=== PATIENT | male | born 1970 | race Two or more races ===

== ENCOUNTER 2025-09-17 09:10 | Inpatient (IN) | payer MEDICAID, SELFPAY ==
[2025-09-17] VITALS (16 sets, daily range): BP systolic 100–138; BP diastolic 62–81; PULSE 82–120; RESP 13–97; TEMP 36.4–36.8; O2SAT 93–97; BMI 26.6; BMI 25.4; BMI 25.8
--- NOTE | 2025-09-17 09:41 | PD.EDEXREM ---
ED Extremity Problem RME/HPI General Chief complaint: General Adult/Misc Complain Stated complaint: R FOOT INFECTION Time Seen by Provider: 09/17/25 09:20 Arrival date/time: 09/17/25 09:10 RME / HPI RME / HPI Narrative: See MDM for Dr. Gonzalez's HPI documentation. Related Data Previous Rx's ?Medication ?Instructions ?Recorded cefpodoxime 200 mg tablet 200 mg PO BID #10 tabs 11/07/20 Allergies Allergy/AdvReac Type Severity Reaction Status Date / Time No Known Allergies Allergy Verified 11/06/20 09:13 Review of Systems Review of Systems Systems Reviewed: All systems reviewed, normal except as documented Past Medical History Past Medical History GASTROINTESTINAL: Positive Gall Bladder Disease and Gastroesophageal Reflux Disease Social History SMOKING STATUS: Never smoker SECOND HAND EXPOSURE: No SUBSTANCE USE: does not use ED Exam Narrative Physical exam: See MDM for Dr. Gonzalez's physical exam documentation. Course Quality Measures none Orders Category Date Time Status Admit to Inpatient Status Routine Admission 09/17/25 15:09 Active Patient Condition Routine Admission 09/17/25 15:09 Ordered COVID-19 Screening Questionnaire NOW Care 09/17/25 13:[address] Screening NOW Care 09/17/25 09:43 Active Decision to Admit X1 Care 09/17/25 13:05 Completed NPO NOW Care 09/17/25 15:11 Active Notify provider NEEDED Care 09/17/25 15:09 Active Obtain weight NOW Care 09/17/25 15:09 Active Saline [Insert IV] NOW Care 09/17/25 09:42 Active Consult to General Surgery Stat Cons 09/17/25 13:00 Ordered Diet NPO (NOW) Diet 09/17/25 15:[address] foot RT w con Stat Exams 09/17/25 09:43 Completed US venous doppler LE RT Stat Exams 09/17/25 09:44 Completed XR chest 1V portable Stat Exams 09/17/25 09:43 Completed BNP [B-Type Natriuretic Peptide] Stat Lab 09/17/25 09:53 Completed Beta Hydroxybutyrate Stat Lab 09/17/25 09:53 Completed Bilirubin,Direct Stat Lab 09/17/25 09:53 Completed Blood Culture (Lab) Stat Lab 09/17/25 09:53 Received CBC AM DRAW Lab 09/18/25 05:00 Ordered CBC AM DRAW Lab 09/19/25 05:00 Ordered CBC AM DRAW Lab 09/20/25 05:00 Ordered CBC AM DRAW Lab 09/21/25 05:00 Ordered CBC AM DRAW Lab 09/22/25 05:00 Ordered CBC AM DRAW Lab 09/23/25 05:00 Ordered CBC Stat Lab 09/17/25 09:53 Completed CK [Creatine Kinase] Stat Lab 09/17/25 09:53 Completed CMP [Comprehensive Metabolic Panel] AM DRAW Lab 09/18/25 05:00 Ordered CMP [Comprehensive Metabolic Panel] AM DRAW Lab 09/19/25 05:00 Ordered CMP [Comprehensive Metabolic Panel] AM DRAW Lab 09/20/25 05:00 Ordered CMP [Comprehensive Metabolic Panel] AM DRAW Lab 09/21/25 05:00 Ordered CMP [Comprehensive Metabolic Panel] AM DRAW Lab 09/22/25 05:00 Ordered CMP [Comprehensive Metabolic Panel] AM DRAW Lab 09/23/25 05:00 Ordered CMP [Comprehensive Metabolic Panel] Stat Lab 09/17/25 09:53 Completed CRP [C-Reactive Protein] Stat Lab 09/17/25 09:53 Completed ESR [Sed Rate (ESR)] Stat Lab 09/17/25 09:53 Completed Hemoglobin A1C [Glycohemoglobin w (eAG)] Stat Lab 09/17/25 09:53 Completed Lactate (Lactic Acid) Stat Lab 09/17/25 09:45 Completed Lactic Acid, 3 HR Stat Lab 09/17/25 13:28 Completed Magnesium AM DRAW Lab 09/18/25 05:00 Ordered Magnesium AM DRAW Lab 09/19/25 05:00 Ordered Magnesium AM DRAW Lab 09/20/25 05:00 Ordered Magnesium AM DRAW Lab 09/21/25 05:00 Ordered Magnesium AM DRAW Lab 09/22/25 05:00 Ordered Magnesium AM DRAW Lab 09/23/25 05:00 Ordered Magnesium Stat Lab 09/17/25 09:53 Completed Phosphorous AM DRAW Lab 09/18/25 05:00 Ordered Phosphorous AM DRAW Lab 09/19/25 05:00 Ordered Phosphorous AM DRAW Lab 09/20/25 05:00 Ordered Phosphorous AM DRAW Lab 09/21/25 05:00 Ordered Phosphorous AM DRAW Lab 09/22/25 05:00 Ordered Phosphorous AM DRAW Lab 09/23/25 05:00 Ordered Procalcitonin Stat Lab 09/17/25 09:53 Completed TSH [Thyroid Stimulating Hormone] Stat Lab 09/17/25 09:53 Completed Troponin I Stat Lab 09/17/25 09:53 Completed UA, C/S IF [Urinalysis, C/S if Indicated] Stat Lab 09/17/25 10:09 Completed Urine Culture Stat Lab 09/17/25 10:09 Received VBG [Venous Blood Gas] Stat Lab 09/17/25 09:45 Completed Acetaminophen Tab [Tylenol Tab] Med 09/17/25 15:09 Active 650 mg PO Q6H PRN Cefepime Inj [Maxipime Inj] 2 gm Med 09/17/25 09:42 Discontinued SODIUM CHLORIDE 0.9% (Popper) [Ns 0.9% (P)] 50 ml IV X1 HYDROmorphone INJ [Dilaudid Inj] Med 09/17/25 15:09 Active 1 mg IVP Q4HR PRN HYDROmorphone INJ [Dilaudid Inj] Med 09/17/25 15:16 Discontinued 1 mg IVP X1 ONE HYDROmorphone INJ [Dilaudid Inj] Med 09/17/25 15:08 Discontinued 2 mg IVP X1 ONE Insulin Regular Med 09/17/25 11:34 Discontinued 7.5 unit IV X1 ONE Ketorolac Inj [Toradol Inj] Med 09/17/25 09:42 Discontinued 30 mg IVP X1 ONE Morphine* Inj Med 09/17/25 15:09 Active 2 mg IVP Q6HR PRN Morphine* Inj Med 09/17/25 09:42 Discontinued 4 mg IV X1 ONE Ondansetron Inj [Zofran Inj] Med 09/17/25 15:09 Active 4 mg IVP Q6H PRN Ringers Lactated 1000 ml [Lactated Ringers] 1,000 ml Med 09/17/25 15:15 Active IV 75 mls/hr Sodium Chloride 0.9% 1000 ml [Ns] 1,000 ml Med 09/17/25 11:34 Discontinued IV 999 mls/hr Vancomycin Inj 2,000 mg Med 09/17/25 09:42 Discontinued Sodium Chloride 0.9% 500 ml [Ns] 500 ml IV X1 Code Status Routine Oth 09/17/25 15:09 Ordered Oxygen Delivery DAILY RT 09/17/25 15:11 Active Oxygen Delivery NOW RT 09/17/25 15:11 Completed Vital Signs Vital signs: Vital Signs Temperature 98.2 F 09/17/25 09:25 Pulse Rate 120 H 09/17/25 09:25 Respiratory Rate 18 09/17/25 09:25 Blood Pressure 129/77 09/17/25 09:25 Pulse Oximetry (%) 97 09/17/25 09:25 Oxygen Delivery Method Room Air 09/17/25 09:25 Pulse ox is 97% on room air which is adequate. Extremity Problem MDM Narrative MDM Narrative:: This section includes all my notes and documentations, including HPI, PE, and ED course. John Gonzalez MD HPI: 55-year-old male here with about 10-day history of worsening right lower leg and foot redness/swelling/warmth/pain. Has not taken medications for diabetes for years. No other complaints. ROS: All negative except as documented in HPI. Physical Exam: General: Alert and oriented. No acute distress. Eyes: Conjunctivae and lids clear. ENT: No nasal congestion. Neck: Supple. Heart: RRR. Lungs: No respiratory distress. Good air movement. No rhonchi, wheezing, rales. Abdomen: Soft and nontender. Skin: Warm and dry. Neuro: Alert and oriented X 3. Musculoskeletal: Remarkable for left foot and distal half of lower leg erythema/edema/calor/tenderness. I reviewed all diagnostic test results: My interpretation of the chest x-ray is equivocal infiltrates. My review of the CT foot report is: Extensive soft tissue infection with gas-forming organisms involving all of the soft tissues of the foot My review of the US venous doppler report is: Negative for DVT Blood tests and urine tests remarkable for WBC 25.8, sodium 128, glucose 412, lactic 3.5, beta-hydroxybutyrate 1.8, procalcitonin 1.79. At this point, diagnoses include: Left foot infection Poorly controlled diabetes Treatment here included: Cefepime 2 gram IV Vancomycin 2,000 mg IV Toradol 30 mg IV Insulin 7.5 units IV IVF Patient remained stable. 12:56 I discussed the case with our hospitalist Dr. Parham. About the presentation and exam and diagnostics and treatments here. And need of further care in the hospital. Will accept the patient. 12:58 I discussed the case with on-call ortho Dr. Whitehead. About the presentation and exam and diagnostics and treatments here. And need of further care in the hospital. He advised we consult with general surgery. 13:00 I discussed the case with on-call general surgeon Dr. Ruffin. About the presentation and exam and diagnostics and treatments here. And need of further care in the hospital. She agrees to consult. John Gonzalez MD Patient data External records reviewed:: [facility] previous records Clinical information provided by:: patient Social determinants that could affect healthcare access:: none Patient has the following chronic illnesses:: GERD How is presenting disease/condition affected by chronic disease/condition?: uneffected by Evaluation data The following diagnostics were reviewed and interpreted by me:: lab results and radiology exam(s) Lab and/or radiology exams considered but not ordered:: None Interpretation Summary: I reviewed all diagnostic test results: My interpretation of the chest x-ray is equivocal infiltrates. My review of the CT foot report is: Extensive soft tissue infection with gas-forming organisms involving all of the soft tissues of the foot. My review of the US venous doppler report is: Negative for DVT. Blood tests and urine tests remarkable for WBC 25.8, sodium 128, glucose 412, lactic 3.5, beta-hydroxybutyrate 1.8, procalcitonin 1.79. Medications / Prescriptions Medications or Prescriptions considered but not ordered:: None Medication administrations:: Medication Administration History Acetaminophen (Acetaminophen 325 Mg Tablet) 650 mg PO Q6H PRN PRN Reason: Fever >100.4 and mild pain Stop: 10/17/25 15:08 Fentanyl Citrate (Fentanyl Cit Inj 50 Mcg/Ml Amp 2ml) 50 mcg IVP Q5MIN PRN PRN Reason: PAIN SCALE 4-10(Mod-Sev Stop: 09/17/25 19:18 Hydralazine HCl (Hydralazine Inj 20 Mg/Ml Vial) 5 mg IV Q20MIN PRN PRN Reason: SEE COMMENTS Stop: 09/17/25 19:18 Hydromorphone HCl (Hydromorphone Inj 2 Mg/Ml Vial) 1 mg IVP Q4HR PRN PRN Reason: severe pain Pain 9-10 Stop: 09/22/25 15:08 Last Admin: 09/17/25 15:23 Dose: 1 mg Documented By: BY Hydromorphone HCl (Hydromorphone Inj 2 Mg/Ml Vial) 0.5 mg IVP Q10MIN PRN PRN Reason: PAIN SCALE 4-10(Mod-Sev Stop: 09/17/25 19:18 Lactated Ringer's (Lactated Ringers) 1,000 mls @ 75 mls/hr IV .[id number] WALTER Stop: 10/17/25 15:14 Last Admin: 09/17/25 15:30 Dose: 75 mls/hr Documented By: BY Clindamycin/Sodium Chloride (Cleocin/Ns Ivpb) 600 mg in 50 mls @ 100 mls/hr IV Q8HR [facility] Stop: 09/24/25 17:32 Piperacillin/Tazobactam/Dextrose (Zosyn) 3.375 gm in 50 mls @ 100 mls/hr IV Q6HR [facility]; Protocol Stop: 09/24/25 17:59 Meperidine HCl (Meperidine Inj 50 Mg/Ml Vial) 12.5 mg IVP Q5M PRN PRN Reason: SHIVERING Stop: 09/17/25 19:18 Metoclopramide HCl (Metoclopramide Inj 5 Mg/Ml Vial 2 Ml) 10 mg IVP X1 PRN; Protocol PRN Reason: NAUSEA OR VOMITING Stop: 09/17/25 19:20 Metoprolol Tartrate (Metoprolol Tartrate Inj 1 Mg/Ml Vial 5 Ml) 1 mg IVP Q5MIN PRN PRN Reason: TACHYCARDIA Stop: 10/17/25 17:19 Midazolam HCl (Midazolam Inj 1 Mg/Ml Vial 2 Ml) 1 mg IVP Q5MIN PRN PRN Reason: ANXIETY Stop: 09/17/25 19:18 Morphine Sulfate (Morphine Sulf Inj 4 Mg/Ml Vial) 2 mg IVP Q6HR PRN PRN Reason: Pain Scale 6-8 (Severe Stop: 09/22/25 15:08 Ondansetron HCl (Ondansetron Inj 2 Mg/Ml Inj 2 Ml) 4 mg IVP Q6H PRN; Protocol PRN Reason: NAUSEA OR VOMITING Stop: 10/17/25 15:08 Pharmacy Consult (Vancomycin Pharmacy To Dose 1 Each Each) 1 each IV QDAY [facility] Stop: 10/18/25 08:59 Discontinued Medications Fentanyl Citrate (Fentanyl Cit Inj 50 Mcg/Ml Amp 2ml) Confirm Administered Dose 100 mcg .ROUTE .STK-MED ONE Stop: 09/17/25 16:36 Fentanyl Citrate (Fentanyl Cit Inj 50 Mcg/Ml Amp 2ml) Confirm Administered Dose 100 mcg .ROUTE .STK-MED ONE Stop: 09/17/25 16:56 Fentanyl Citrate (Fentanyl Cit Inj 50 Mcg/Ml Amp 2ml) Confirm Administered Dose 100 mcg .ROUTE .STK-MED ONE Stop: 09/17/25 17:05 Fentanyl Citrate (Fentanyl Cit Inj 50 Mcg/Ml Amp 2ml) Confirm Administered Dose 100 mcg .ROUTE .STK-MED ONE Stop: 09/17/25 17:24 Hydromorphone HCl (Hydromorphone Inj 2 Mg/Ml Vial) 2 mg IVP X1 ONE Stop: 09/17/25 15:09 Last Admin: 09/17/25 15:36 Dose: Not Given Documented By: BY Non-Admin Reason: Cancelled by Provider Hydromorphone HCl (Hydromorphone Inj 2 Mg/Ml Vial) 1 mg IVP X1 ONE Stop: 09/17/25 15:17 Vancomycin HCl 2,000 mg/ (Sodium Chloride) 500 mls @ 150 mls/hr IV X1 ONE Stop: 09/17/25 13:01 Last Admin: 09/17/25 11:30 Dose: 150 mls/hr Documented By: BY Cefepime HCl 2 gm/ Sodium (Chloride) 50 mls @ 100 mls/hr IV X1 ONE Stop: 09/17/25 10:11 Last Infusion: 09/17/25 10:45 Dose: Infused Documented By: Admin: 09/17/25 10:13 Dose: 100 mls/hr Documented By: BY Sodium Chloride (Ns) 1,000 mls @ 999 mls/hr IV .Q1H1M ONE Stop: 09/17/25 12:34 Last Infusion: 09/17/25 12:45 Dose: Infused Documented By: Admin: 09/17/25 11:44 Dose: 999 mls/hr Documented By: BY Acetaminophen (Ofirmev Inj) Confirm Administered Dose 100 mls @ ud IV .STK-MED ONE Stop: 09/17/25 17:28 Insulin Human Regular (Insulin Hum Regular 1 Unit/0.01 Ml (Per Unit)) 7.5 unit IV X1 ONE Stop: 09/17/25 11:35 Last Admin: 09/17/25 11:44 Dose: 7.5 unit Documented By: BY Co-signed By: ARF Insulin Human Regular (Insulin Hum Regular 1 Unit/0.01 Ml (Per Unit)) 5 unit SC X1 ONE Stop: 09/17/25 16:41 Last Admin: 09/17/25 16:45 Dose: 5 unit Documented By: AB Co-signed By: LT Ketorolac Tromethamine (Ketorolac Inj 30 Mg/Ml Vial) 30 mg IVP X1 ONE Stop: 09/17/25 09:43 Last Admin: 09/17/25 10:15 Dose: 30 mg Documented By: BY Lidocaine HCl (Lidocaine Inj Pf 1% 2 Ml Vial) Confirm Administered Dose 2 ml .ROUTE .STK-MED ONE Stop: 09/17/25 16:36 Metoclopramide HCl (Metoclopramide Inj 5 Mg/Ml Vial 2 Ml) Confirm Administered Dose 10 mg .ROUTE .STK-MED ONE Stop: 09/17/25 16:37 Morphine Sulfate (Morphine Sulf Inj 4 Mg/Ml Vial) 4 mg IV X1 ONE Stop: 09/17/25 09:43 Last Admin: 09/17/25 10:15 Dose: 4 mg Documented By: BY Propofol (Propofol Inj 10 Mg/Ml Vial 20 Ml) Confirm Administered Dose 200 mg IV .STK-MED ONE Stop: 09/17/25 16:36 Treatment from [facility] here included: Cefepime 2 gram IV Vancomycin 2,000 mg IV Toradol 30 mg IV Insulin 7.5 units IV IVF Consultations Consultation(s) initiated? (list below): Yes Consultation #1 (Physician, Specialty, Details): 12:56 I discussed the case with our hospitalist Dr. Parham. About the presentation and exam and diagnostics and treatments here. And need of further care in the hospital. Will accept the patient. 12:58 I discussed the case with on-call ortho Dr. Whitehead. About the presentation and exam and diagnostics and treatments here. And need of further care in the hospital. He advised we consult with general surgery. 13:00 I discussed the case with on-call general surgeon Dr. Ruffin. About the presentation and exam and diagnostics and treatments here. And need of further care in the hospital. She agrees to consult. Diagnosis Extremity Problem Differential Diagnosis: gout, cellulitis and lower extremity edema Most likely diagnosis given after review of the tests above:: Left foot infection Poorly controlled diabetes Admission Indicated Admission indicated?: indicated Admission Request Was there a request for admission?: Yes Admission Attestation Admission request attestation: Discussed case with Hospitalist service regarding admission. Discussed patients ED course, exam findings, labs, and radiology results. Agreed to accept the patient for admission. Disposition Plan Disposition Plan: Admit Discharge Plan Plan Patient Disposition: Admit Acute Care w/in Hospital Problem List Clinical Impression: Left foot infection, Poorly controlled diabetes mellitus
--- NOTE | 2025-09-17 09:43 | XR_ITS ---
EXAMINATION: AP chest single view TECHNIQUE: Sitting portable AP chest single view INDICATIONS: Shortness of breath today. FINDINGS: Normal heart size Early opacity at the right lung base obscuring detail right hemidiaphragm Left lung clear Mild osteopenia IMPRESSION: Early pneumonia right base
--- NOTE | 2025-09-17 09:43 | XR_ITS ---
Examination: CT right foot, without contrast. 2-D sagittal reconstructions. 2-D coronal reconstructions. 3-D reconstructions. Date and time of exam: September 17, 2025, 1113 hours INDICATIONS: Redness swelling and pain involving the foot beginning 10 days ago CTDI: vol (mGy): 3.5 DLP: (mGycm): 109 Technique: Multiple 1.25 mm axial sections of the foot, right have been obtained. 2-D sagittal and coronal reconstructions have been obtained. 3-D reconstructions have been obtained. Low dose protocols were performed. One or more of the following dose reduction techniques were used; automated exposure control, adjustment of the mA and/or KV according to patient size, use of iterative reconstruction technique. Findings: Multiple air droplets in the soft tissues surrounding the bones of the ankle and foot No fracture No sydnee cortical bone destruction No dislocation No foreign body IMPRESSION: Extensive soft tissue infection with gas-forming organisms involving all of the soft tissues of the foot No sydnee cortical bone destruction MRI foot follow-up without contrast would best assess for osteomyelitis as well as soft tissue abscess
--- NOTE | 2025-09-17 09:44 | XR_ITS ---
Examination: Duplex scan of the lower extremity, unilateral right Date and time of exam: September 17, 2025, 12:14 p.m. INDICATIONS: Right ankle swelling and discoloration after falling work 1 week ago Technique: Duplex scan of the extremity veins using B-mode/grayscale imaging and Doppler spectral analysis and color flow Attention is directed to internal echogenicity, compression and augmentation involving these veins, color flow assessment, spectral analysis Findings: Major deep venous structures in the extremity demonstrate normal course and caliber. There is no evidence of deep vein thrombosis. Normal color flow and spectral analysis Impression: Negative for DVT..
[2025-09-17 10:13] LABS: Base Excess, Venous 6 (-3-3); O2 Saturation, Venous 83 % (96-97); PCO2, Venous 41 mmHg (36-56); PO2, Venous 46 mmHg (15-58); pH, Venous 7.48 (7.33-7.66)
[2025-09-17] MEDS: CEFEPIME INJ 2 GM in SODIUM CHLORIDE 0.9% (Popper) 50 ML IV (10:13)
[2025-09-17 10:14] LABS: Lactate (Lactic Acid) 3.5 mMol/L (0.4-2.0)
[2025-09-17] MEDS: MORPHINE SULF INJ 4 MG/ML VIAL IV (10:15)
[2025-09-17] MEDS: KETOROLAC INJ 30 MG/ML VIAL IVP (10:15)
[2025-09-17 10:16] LABS: Basophils # (Auto) 0.1 Thou/mm3 (0.0-0.2); Basophils % (Auto) 0 % (0-2.5); Eosinophils # (Auto) 0.0 Thou/mm3 (0.0-0.5); Eosinophils % (Auto) 0 % (0-10); Hematocrit 36.2 % (41.0-53.0); Hemoglobin 12.4 g/dL (13.5-16.0); Immature Granulocytes Auto 1.22 Thou/mm3 (0.00-0.00); Lymphocytes # (Auto) 1.2 Thou/mm3 (1.0-4.8); Lymphocytes % (Auto) 5 % (10-50); Mean Corpuscular HGB Conc 34.3 g/dl (31.0-37.0); Mean Corpuscular Hemoglobin 30.0 pg (25.0-35.0); Mean Corpuscular Volume 87 fL (80-100); Monocytes # (Auto) 1.5 Thou/mm3 (0.0-0.8); Monocytes % (Auto) 6 % (0-12); Neutrophils # (Auto) 21.8 Thou/mm3 (1.8-7.7); Neutrophils % (Auto) 85 % (37-80); Nucleated Red Blood Cell # 0.00 Thou/mm3 (0.00-0.00); Nucleated Red Blood Cell % 0 /100 WBC (0); Platelet Count 607 Thou/mm3 (140-440); RDW Standard Deviation 44.6 fL (35.1-43.9); Red Blood Count 4.14 Miln/mm3 (4.50-5.90); White Blood Count 25.8 Thou/mm3 (3.8-10.6)
[2025-09-17 10:17] LABS: Collection Type, Urine Clean Catch
[2025-09-17 10:28] LABS: Beta Hydroxybutyrate 1.8 mmol/L (<0.6)
[2025-09-17 10:35] LABS: B-Type Natriuretic Peptide 23 pg/mL (0-100)
[2025-09-17 10:41] LABS: Bacteria,Urine Rare; Bilirubin,Urine Negative (Negative); Blood,Urine Negative (Negative); Color,Urine Yellow (Lt Yel-Yel); Glucose, Urine 4+ (Negative); Granular Casts,Urine 1 /hpf (0-1); Ketones,Urine 2+ (Negative); Leukocyte Esterase,Urine Positive (Negative); Nitrite,Urine Negative (Negative); PH,Urine 6.0 (5.0-7.0); Protein,Urine 1+ (Neg - Trace); RBC,Urine 3 /hpf (0-3); Specific Gravity,Urine 1.032 (1.001-1.035); Squamous Epithelial Cell,Urine 1 /hpf (0-5); Transitional Epi Cells,Urine < 1 /hpf (0-5); Urobilinogen,Urine 4.0 mg/dL (0.0-1.0); WBC,Urine 16 /hpf (0-5)
[2025-09-17 10:45] LABS: Alanine Aminotransferase 20 U/L (10-49); Albumin, Serum 3.6 gm/dL (3.5-5.0); Albumin/Globulin Ratio 0.9 (1.2-2.2); Alkaline Phosphatase 201 U/L (46-116); Anion Gap 14 (7-16); Aspartate Amino Transferase 34 U/L (0-34); BUN/Creatinine Ratio 19 Ratio (12-20); Bilirubin,Direct 0.9 mg/dL (0.0-0.3); Bilirubin,Total 1.3 mg/dL (0.3-1.2); Blood Urea Nitrogen 17 mg/dL (9-23); C-Reactive Protein > 10.0 mg/dL (0.0-0.9); Calcium 9.0 mg/dL (8.3-10.6); Calcium (Corrected) 9.3 mg/dL (8.5-10.1); Carbon Dioxide 26.6 mMol/L (20.0-31.0); Chloride 87 mMol/L (98-107); Creatine Kinase 120 U/L (34-171); Creatinine (Component) 0.9 mg/dL (0.6-1.3); Estimated Creatinine Clearance 93.8 mL/min (>60); Globulin 4.1 gm/dL (2.3-3.5); Magnesium 2.0 mg/dL (1.6-2.6); Osmolality,Calculated 275 (275-295); Potassium 3.9 mMol/L (3.4-5.1); Procalcitonin 1.79 ng/ml (0.0-0.49); Sodium 128 mMol/L (136-145); Thyroid Stimulating Hormone 2.39 uIU/mL (0.55-4.78); Total Protein 7.7 gm/dL (5.7-8.2); Troponin I < 0.002 ng/mL (0.0-0.045); eGFR > 60 See Note
[2025-09-17 10:47] LABS: Glucose 412 mg/dL (74-106)
[2025-09-17 10:49] LABS: Clarity,Urine Hazy (Clear/Hazy); Culture Indicated,Urine Yes
[2025-09-17 11:02] LABS: Sed Rate (ESR) 130 mm/hr (0-20)
[2025-09-17 11:28] LABS: Glucose Estimated Average 260 mg/dL (80-131); Hemoglobin A1C 10.7 % Hgb (4.8-6.0)
[2025-09-17] MEDS: Vancomycin Inj 2,000 MG in SODIUM CHLORIDE 0.9% 500 ML 500 ML 150 MG IV (11:30)
[2025-09-17] MEDS: INSULIN HUM REGULAR 1 UNIT/0.01 ML (PER UNIT) 7.5 UNIT IV (11:44)
[2025-09-17] MEDS: SODIUM CHLORIDE 0.9% 1000 ML 1,000 ML 999 ML IV (11:44)
[2025-09-17 13:16] LABS: Reflex Lactate? Y
[2025-09-17 13:36] LABS: Lactic Acid, 3 HR 1.7 mMol/L (0.4-2.0)
--- NOTE | 2025-09-17 13:50 | PC.NURSE ---
patient states he had a fall from a lader about 10 days ago did no seek treatment, is now experiencing right foot redness drainage, warmth and severe pain, is unable to walk due to the pain, patient states he was told he was diabetic long time ago, but never got treatment for diabetes, is currently not on any meds
--- NOTE | 2025-09-17 13:54 | PC.NURSE ---
girlfriend number [phone] [place]
[2025-09-17] MEDS: HYDROmorphone INJ 2 MG/ML VIAL 1 MG IVP ×2 (15:23→20:58)
[2025-09-17] MEDS: RINGERS LACTATED 1000 ML 1,000 ML 75 ML IV (15:30)
--- NOTE | 2025-09-17 15:47 | PD.SURCONS ---
HPI Consult details History of present illness: 55M with DMII not on medications (pt states he was told he had preDM but had not followed up) presenting with right foot pain, redness and fatigue. Pt states he fell off a ladder on 09/05 and since then noted worsening pain and appearance of his right foot as well as fatigue. In ER he is found to have WBC 25, A1c [address] showing extensive gas and abscess of R foot PMH: DMII (not on meds) PSHx: None Meds: None Allergies: NKDA Social hx: Nonsmoker Review of Systems Review of Systems ROS Unobtainable: All systems reviewed & no additional complaints except as documented Meds Home Medications and Allergies Allergies Allergy/AdvReac Type Severity Reaction Status Date / Time No Known Allergies Allergy Verified 11/06/20 09:13 Exam Vital Signs Temp Pulse Resp BP Pulse Ox O2 Del Method 98.3 F 91 18 133/76 H 96 Room Air 09/17/25 10:25 09/17/25 15:40 09/17/25 15:40 09/17/25 15:09 09/17/25 15:32 09/17/25 15:09 Constitutional Constitutional: no acute distress Routine Respiratory Exam Respiratory: Present no resp distress Routine Extremities Exam Comments: right foot warm and diffuse erythema with fluctuance and tenderness most pronounced laterally. on the dorsum there is a dark bulla Results Results: Laboratory Laboratory results: results reviewed Results: Imaging Imaging narrative: CT reviewed Assessment & Plan Plan 55M with DMII not on meds (A1c 10) presenting with extensive right foot abscess, no signs of osteomyelitis. I explained that first step will be incision and drainage and could require multiple incisions, and will require wounds to remain open for adequate drainage. I also informed pt that depending on the extent of the infection and his recovery in the coming days he may go on to require amputation. Pt is understandably shocked by this possibility but is agreeable to I&D for now
--- NOTE | 2025-09-17 16:36 | PC.NURSE ---
patient picked up for surgery at this time, patient alert and verbal states pain is better
[2025-09-17] MEDS: INSULIN HUM REGULAR 1 UNIT/0.01 ML (PER UNIT) 5 UNIT SC (16:45)
--- NOTE | 2025-09-17 17:55 | PD.SUROPNT ---
Date of Procedure 09/17/25 Pre Op Diagnosis Right foot abscess Post Op Diagnosis Same Procedure Incision and drainage of right foot abscess Findings Right foot abscess containing copious pus Procedure Description After discussion of risks and benefits, including the possibility of needing further procedures which could include amputation, patient was brought to the operating room and general anesthesia with LMA was induced. He had received antibiotics in the ER and was prepped and draped in usual sterile fashion. After timeout the area of most fluctuance was first addressed. This was the lateral foot overlying the lateral malleolus. The skin was incised with a #15 blade and there was a return of pus which was cultured. The skin in this area was noted to be to necrotic so it was sharply debrided with scissors down to the level of subcutaneous tissue. As the foot was quite fluctuant along the lateral surface I extended this incision distally all the way to almost the base of the fifth toe. More pus was expressed and some necrotic subcutaneous tissue was debrided with a curette. I noted that more medially, there were additional areas of fluctuance so I made an additional incision medial to this which was approximately 2 cm in longitudinal dimension however there was minimal pus from this incision. I then made an additional incision even further medial, which was ultimately extended about 5 cm in longitudinal dimension and this incision had the most sydnee pus expressed. The wound was probed for loculations and subcutaneous tissue was sharply debrided with a curette. I then turned attention to the plantar surface of the foot where there was a dark bulla. I incised this with a #15 blade and there was return of serosanguineous fluid. There was some necrotic skin which was sharply excised with a #15 blade. All of the wounds were irrigated with Betadine and saline and hemostasis was achieved with electrocautery. Hemostasis was reinforced with Surgicel to the largest of the incisions and the dorsal incisions were packed with moistened Kerlix. The wound on the plantar surface of the foot was covered with Adaptic. All incisions were covered with fluffs, abdominal pads which were secured with Kerlix wraps. Patient was extubated and brought to PACU in stable condition Pathology / specimen Other (Right foot necrotic tissue, wound culture) Estimated Blood Loss 25 Surgeon Kimmie Ruffin MD Surgical Staff Operation Date: 09/17/25 16:00 Case Staff Anesthesiologist: Carlos Olsen
--- NOTE | 2025-09-17 18:30 | SUR.PHASEI ---
175: pt arrived to PACU via gurney drowsy but arouses to voice, breathing unlabored, dressing to right foot clean, dry, and intact, report from Naa FABIAN. 1814: pt tolerating ice chips without difficulty swallowing or n/v. 1829: pt awake, alert, able to follow commands, breathing unlabored, dressing to right foot clean, dry, and intact, VS stable, report called to Fransisca FABIAN, pt transferred to room at this time.
--- NOTE | 2025-09-17 20:01 | ESHP_ITS ---
<Statement entered by Mattie Sweeney MD - 09/17/25 21:08> Mr. Carrera is a 55 year old male with past medical history significant for uncontrolled type 2 diabetes presented to the ED after noticing swelling and bruising in his right foot and ankle. Patient also states he has been in significant amount of pain because he fell off of a ladder approximately 10 days ago however he did not pay attention to the extent of his injury. Patient states he was diagnosed with diabetes in 2012 but has not taken any medication and does not follow up with a PCP. Patient denied any fever chills or night sweats. Ultrasound was negative for DVT and foot CT is positive for gas-forming organism and extensive soft tissue infection. ED contacted surgery who recommended patient to be admitted and taken to surgery for necrotizing fasciitis. Patient is started on broad-spectrum antibiotics with clindamycin, vancomycin and Zosyn. Patient will undergo surgery today. For diabetes patient is started on degludec 7 units at bedtime and sliding scale and will continue to monitor blood glucose closely. Patient was seen and examined by me personally. I have directly supervised and reviewed documentation by the team resident and agree with its findings. ------- Plan of care was discussed with the attending, Dr. Prasad Sweeney, PGY-2 Documentation for date of: 09/17/25 HPI History of Present Illness Chief complaint: Right foot pain s/p fall History of present illness: Mr. Carrera is a 55 year old gentleman with a pmh of t2dm that was not being followed outpatient by a pcp and pt was managing with lifestyle modifications and no other past medical history who presented to the ed 10 [address] work [address] accident where he fell off a ladder and onto his R foot. He states that his foot was mildly injured following the fall and that the pain continued to worsen. He had noted some skin break down on the top part of his foot. His pain was poorly controlled at home and not getting better which is what prompted him to present. 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 and lives with his girlfriend Lisa PMH: T2DM (diagnosed in 2014) managed with dietary and lifestyle modification, never took medication nor insulin for dm, and lost to followup with pcp Meds: NONE ED course VS BP wnl, HR 120, afebrile satting 97 on RA, Labs notable for wbc 25, PLT 607, ESR 130, Na 128, corrected Na 133 (glucose 417), A1c 10.7, Lactic acid 3.5-->1.7, Tbili 1.3, alkphos 201, CRP >10, procal 1.79 Imaging notable for Foot CT: Extensive soft tissue infection with gas-forming organisms involving all of the soft tissues of the foot BLE DVT US : negative for DVT CXR, unremarkable Past Medical History Family History FAMILY HISTORY: Positive Family Endocrine Disorders (Diabetes ) Exam Vital Signs Temp Pulse Resp BP Pulse Ox O2 Del Method O2 Flow Rate 97.6 F 87 17 100/62 95 Room Air 2 09/17/25 19:57 09/17/25 19:57 09/17/25 19:57 09/17/25 19:57 09/17/25 19:57 09/17/25 19:57 09/17/25 18:26 Narrative Exam GENERAL: no acute distress, AAO x3, comfortably laying in bed, anxious appearing HEENT: Head AT/ NC. Mucous membranes moist. PERRL. NECK: Supple, no lymphadenopathy, no carotid bruits. CARDIOVASCULAR: RRR. Normal S1/S2, No m/r/g. No pitting edema of bilateral LEs. RESPIRATORY: CTAB. No wheezing, rhonchi, crackles. GASTROINTESTINAL: Abdomen soft, non tender no palpable masses. Bowel sounds present MUSCULOSKELETAL:?Right ankle with crepetus and errythema on the dorsum and black 2x2 cm circular area on the plantar surface of his R foot and lateral malleolus with skin breakdown and weaping. left foot appears nl with no non healing wounds or abrrasions noted between toes or on plantar surface. NEUROLOGICAL: CN II-XII grossly intact. No focal deficits. Sensation intact, symmetric. PSYCHIATRIC: Awake and alert, not agitated, normal mood and affect. SKIN: No obvious rashes, no jaundice, normal turgor. Results: Labs 09/20/25 04:54 09/20/25 04:54 Labs: Short CBC 09/17/25 Range/Units 09:53 WBC 25.8 H (3.8-10.6) Thou/mm3 Hgb 12.4 L (13.5-16.0) g/dL Hct 36.2 L (41.0-53.0) % Plt Count 607 H (140-440) Thou/mm3 BMP 09/17/25 09:53 Sodium 128 L Potassium 3.9 Chloride 87 L Carbon Dioxide 26.6 BUN 17 Creatinine 0.9 Glucose 412 H* Calcium 9.0 Cardiac Enzymes 09/17/25 Range/Units 09:53 Total Creatine Kinase 120 (34-171) U/L Troponin I < 0.002 (0.0-0.045) ng/mL Liver Function 09/17/25 Range/Units 09:53 Total Bilirubin 1.3 H (0.3-1.2) mg/dL Direct Bilirubin 0.9 H (0.0-0.3) mg/dL AST 34 (0-34) U/L ALT 20 (10-49) U/L Alkaline Phosphatase 201 H (46-116) U/L Albumin 3.6 (3.5-5.0) gm/dL Urine 09/17/25 Range/Units 10:09 Urine Color Yellow (Lt Yel-Yel) Urine Clarity Hazy (Clear/Hazy) Urine pH 6.0 (5.0-7.0) Ur Specific Grant 1.032 (1.001-1.035) Urine Protein 1+ A (Neg - Trace) Urine Glucose (UA) 4+ A (Negative) ABG Interpretation ABG results: 09/17/25 09:45 VBG pH 7.48 VBG pCO2 41 VBG pO2 46 VBG Base Excess 6 H Quality Measures Quality Measures VTE prophylaxis Medications Home Medications and Allergies Allergies Allergy/AdvReac Type Severity Reaction Status Date / Time No Known Allergies Allergy Verified 09/17/25 18:36 Visit Medications Acetaminophen (Acetaminophen 325 Mg Tablet) 650 mg PO Q6H PRN PRN Reason: Fever >100.4 and mild pain Stop: 10/17/25 15:08 Dextrose (Dextrose 50%-Water Inj 50 Ml Syringe) 25 ml IV Q15MIN PRN PRN Reason: BG 50-70 responsive npo pt Stop: 10/17/25 19:53 Dextrose (Dextrose 50%-Water Inj 50 Ml Syringe) 50 ml IV Q15MIN PRN PRN Reason: BG <50 OR BG <70 & pt unresponsive Stop: 10/17/25 19:53 Glucagon (Glucagon Inj 1 Mg Vial) 1 mg IM Q15MIN PRN PRN Reason: BG <70, and no IV access Hydromorphone HCl (Hydromorphone Inj 2 Mg/Ml Vial) 1 mg IVP Q4HR PRN PRN Reason: severe pain Pain 9-10 Stop: 09/22/25 15:08 Last Admin: 09/17/25 15:23 Dose: 1 mg Clindamycin/Sodium Chloride (Cleocin/Ns Ivpb) 600 mg in 50 mls @ 100 mls/hr IV Q8HR [facility] Stop: 09/24/25 17:32 Piperacillin/Tazobactam/Dextrose (Zosyn) 3.375 gm in 50 mls @ 100 mls/hr IV Q6HR [facility]; Protocol Stop: 09/24/25 17:59 Vancomycin/Sodium Chloride (Vancomycin/Ns 1 Gm Ivpb) 200 mls @ 120 mls/hr IV Q12H [facility]; Protocol Stop: 09/24/25 21:59 Insulin Degludec (Insulin Degludec 5 Unit/0.05 Ml (Per 5 Units)) 7 unit SC [facility] Stop: 10/17/25 20:59 Insulin Human Lispro (Insulin Lispro (Admelog) 1 Unit/0.01 Ml Unit) 0 unit SC [facility]; Protocol Stop: 10/17/25 20:59 Morphine Sulfate (Morphine Sulf Inj 4 Mg/Ml Vial) 2 mg IVP Q6HR PRN PRN Reason: Pain Scale 6-8 (Severe Stop: 09/22/25 15:08 Ondansetron HCl (Ondansetron Inj 2 Mg/Ml Inj 2 Ml) 4 mg IVP Q6H PRN; Protocol PRN Reason: NAUSEA OR VOMITING Stop: 10/17/25 15:08 Pharmacy Consult (Vancomycin Pharmacy To Dose 1 Each Each) 1 each IV QDAY [facility] Stop: 10/18/25 08:59 Discontinued Medications Fentanyl Citrate (Fentanyl Cit Inj 50 Mcg/Ml Amp 2ml) 50 mcg IVP Q5MIN PRN PRN Reason: PAIN SCALE 4-10(Mod-Sev Stop: 09/17/25 19:18 Hydralazine HCl (Hydralazine Inj 20 Mg/Ml Vial) 5 mg IV Q20MIN PRN PRN Reason: SEE COMMENTS Stop: 09/17/25 19:18 Hydromorphone HCl (Hydromorphone Inj 2 Mg/Ml Vial) 2 mg IVP X1 ONE Stop: 09/17/25 15:09 Last Admin: 09/17/25 15:36 Dose: Not Given Hydromorphone HCl (Hydromorphone Inj 2 Mg/Ml Vial) 1 mg IVP X1 ONE Stop: 09/17/25 15:17 Last Admin: 09/17/25 19:57 Dose: Not Given Hydromorphone HCl (Hydromorphone Inj 2 Mg/Ml Vial) 0.5 mg IVP Q10MIN PRN PRN Reason: PAIN SCALE 4-10(Mod-Sev Stop: 09/17/25 19:18 Vancomycin HCl 2,000 mg/ (Sodium Chloride) 500 mls @ 150 mls/hr IV X1 ONE Stop: 09/17/25 13:01 Last Admin: 09/17/25 11:30 Dose: 150 mls/hr Cefepime HCl 2 gm/ Sodium (Chloride) 50 mls @ 100 mls/hr IV X1 ONE Stop: 09/17/25 10:11 Last Infusion: 09/17/25 10:45 Dose: Infused Sodium Chloride (Ns) 1,000 mls @ 999 mls/hr IV .Q1H1M ONE Stop: 09/17/25 12:34 Last Infusion: 09/17/25 12:45 Dose: Infused Lactated Ringer's (Lactated Ringers) 1,000 mls @ 75 mls/hr IV .[id number] [facility] Stop: 10/17/25 15:14 Last Admin: 09/17/25 15:30 Dose: 75 mls/hr Insulin Human Lispro (Insulin Lispro (Admelog) 1 Unit/0.01 Ml Unit) 0 unit SC AC [facility]; Protocol Stop: 10/18/25 07:29 Insulin Human Regular (Insulin Hum Regular 1 Unit/0.01 Ml (Per Unit)) 7.5 unit IV X1 ONE Stop: 09/17/25 11:35 Last Admin: 09/17/25 11:44 Dose: 7.5 unit Insulin Human Regular (Insulin Hum Regular 1 Unit/0.01 Ml (Per Unit)) 5 unit SC X1 ONE Stop: 09/17/25 16:41 Last Admin: 09/17/25 16:45 Dose: 5 unit Ketorolac Tromethamine (Ketorolac Inj 30 Mg/Ml Vial) 30 mg IVP X1 ONE Stop: 09/17/25 09:43 Last Admin: 09/17/25 10:15 Dose: 30 mg Meperidine HCl (Meperidine Inj 50 Mg/Ml Vial) 12.5 mg IVP Q5M PRN PRN Reason: SHIVERING Stop: 09/17/25 19:18 Metoclopramide HCl (Metoclopramide Inj 5 Mg/Ml Vial 2 Ml) 10 mg IVP X1 PRN; Protocol PRN Reason: NAUSEA OR VOMITING Stop: 09/17/25 19:20 Metoprolol Tartrate (Metoprolol Tartrate Inj 1 Mg/Ml Vial 5 Ml) 1 mg IVP Q5MIN PRN PRN Reason: TACHYCARDIA Stop: 10/17/25 17:19 Midazolam HCl (Midazolam Inj 1 Mg/Ml Vial 2 Ml) 1 mg IVP Q5MIN PRN PRN Reason: ANXIETY Stop: 09/17/25 19:18 Morphine Sulfate (Morphine Sulf Inj 4 Mg/Ml Vial) 4 mg IV X1 ONE Stop: 09/17/25 09:43 Last Admin: 09/17/25 10:15 Dose: 4 mg Assessment & Plan Plan Mr. Carrera is a 55 year old gentleman with a hx of T2DM- poorly controlled (a1c 10) with no active PCP managment who presented to the ed on 09/17 10 days after a fall from a ladder resulting in injury of his R foot and subsequent errythema and swelling, found to have R foot abscess concerning for nec fasc, s/p incision and drainage with Dr. Ruffin on 09/17, on IV broad spectrum antibiotics, with plan for likely subsequent incisions and drainages, and possible amputation. R foot abscess concerning for necrotizing fasciaitis (POD#0) s/p I and D with Dr. Ruffin 09/17 pt presented 10 days after falling off of a ladder at work. he states that his foot got caught in the rung of the ladder and that he fell backwards and twisted and injured his ankle. he did not seek medical attention at that time. His pain and swelling worsened and he experienced chills which prompted him to present to the ED. suspect that R foot wound did not heal 2/2 poorly controlled DM and immunocompromised state and poor peripheral perfusion. Dx Foot CT: Extensive soft tissue infection with gas-forming organisms involving all of the soft tissues of the foot BLE DVT US : negative for DVT wound cultures pending Ucx pending blood cultures pending Abx Vancomycin 1gm IV pharmacy to dose (09/17- Zosyn 3.375 gm IV q8hr (09/17- Clindamycin 600mg IV q8hr (09/17- Cefepime x1 in the ED Pain managment APAP 650 mg PO PRN for fever and mild pain Morphine 2mg q4hr prn for moderate to severe pain Dilaudid 1mg IV q4hr prn for severe pain Plan - surgery consulted, appreciate recs, s/p incision and drainage by Dr. Ruffin on 09/17, wounds left open to promote drainage. Copius pus found during surgery could require multiple incisions, and will require wounds to remain open for adequate drainage. I also informed pt that depending on the extent of the infection and his recovery in the coming days he may go on to require amputation - CTM leukocytosis , CRP, ESR, - Consider repeat imaging, per surgery recommendations - Monitor for new or worsening errythema or crepitus and call electronic train control technician surgeon emergently given c/f spreading of nec fasc - incentive spirometry for pna ppx T2DM- poorly controlled A1c 10.7 on admission. pt states that he was diagnosed with dm in 2014, by his pcp and was not initiated on any medication therapies at that time. he was lost to follow up and has not been seen by a PCP since that time. pt states that he initiated dietary changes with intent to control his dm. Plan Degludec 7units qhs ISS step 3 ACHS Bedside glucose checks Diet, carb consistent diabetes education dietitian consulted, appreciate recs Dispo: med tele, s/p washout of R foot with nec fasc, on IV broad spectrum abx Diet: carb consistent Bowel Reg: senna/docusate prn VTE ppx: hold heparin post surgery, ok for scd on unaffected leg. GI ppx: not indicated Code status: FULL Plan discussed with my attending Dr. Parham and my senior Dr. Patel Gordon MD PGY1 Attending Provider Attestation/Addendum Patient seen and examined at bedside with resident. Agree with assessment and plan as documented above. Patient with uncontrolled DM who presented after injury to the right lower leg ~10 days ago. Wound has been worsening and now has necrotic tissue and significant swelling with CT showing lots of gas in the subcutaneous tissue. inflammatory markers significantly elevated. Discussed case with surgery, would like to admit for surgical debridement. Will initiate patient on broad spectrum abx to cover for necrotizing fasciitis and cotinue to monitor very closely. Willy Parham MD
[2025-09-17] MEDS: PIPER/TAZO 3.375 GM PREMIX 3.375 GM/50 ML BAG IV (21:32)
[2025-09-17] MEDS: INSULIN LISPRO (AdmeLOG) 1 UNIT/0.01 ML UNIT SC (22:19)
[2025-09-17] MEDS: INSULIN DEGLUDEC 5 UNIT/0.05 ML (PER 5 UNITS) 7 UNIT SC (22:19)
[2025-09-17] MEDS: CLINDAMYCIN/NS 600 MG IVPB 600 MG/50 ML BAG 100 MG IV (22:19)
[2025-09-17] MEDS: VANCOMYCIN/NS 1 GM IVPB 200 ML IV (23:04)
[2025-09-18] VITALS (8 sets, daily range): BP systolic 98–139; BP diastolic 58–79; PULSE 70–103; RESP 15–95; TEMP 36.2–37.5; O2SAT 93–96; BMI 25.9
[2025-09-18] MEDS: PIPER/TAZO 3.375 GM PREMIX 3.375 GM/50 ML BAG IV ×3 (05:27→17:52)
[2025-09-18] MEDS: MORPHINE SULF INJ 4 MG/ML VIAL 2 MG IVP (05:31)
[2025-09-18 06:00] LABS: Basophils # (Auto) 0.1 Thou/mm3 (0.0-0.2); Basophils % (Auto) 0 % (0-2.5); Eosinophils # (Auto) 0.1 Thou/mm3 (0.0-0.5); Eosinophils % (Auto) 1 % (0-10); Hematocrit 30.6 % (41.0-53.0); Hemoglobin 10.2 g/dL (13.5-16.0); Immature Granulocytes Auto 0.48 Thou/mm3 (0.00-0.00); Lymphocytes # (Auto) 0.9 Thou/mm3 (1.0-4.8); Lymphocytes % (Auto) 4 % (10-50); Mean Corpuscular HGB Conc 33.3 g/dl (31.0-37.0); Mean Corpuscular Hemoglobin 29.1 pg (25.0-35.0); Mean Corpuscular Volume 87 fL (80-100); Monocytes # (Auto) 1.3 Thou/mm3 (0.0-0.8); Monocytes % (Auto) 6 % (0-12); Neutrophils # (Auto) 18.2 Thou/mm3 (1.8-7.7); Neutrophils % (Auto) 86 % (37-80); Nucleated Red Blood Cell # 0.00 Thou/mm3 (0.00-0.00); Nucleated Red Blood Cell % 0 /100 WBC (0); Platelet Count 576 Thou/mm3 (140-440); RDW Standard Deviation 45.1 fL (35.1-43.9); Red Blood Count 3.51 Miln/mm3 (4.50-5.90); White Blood Count 21.1 Thou/mm3 (3.8-10.6)
[2025-09-18] MEDS: CLINDAMYCIN/NS 600 MG IVPB 600 MG/50 ML BAG 100 MG IV ×3 (06:02→21:22)
[2025-09-18 06:10] LABS: Alanine Aminotransferase 19 U/L (10-49); Albumin, Serum 2.8 gm/dL (3.5-5.0); Albumin/Globulin Ratio 0.8 (1.2-2.2); Alkaline Phosphatase 158 U/L (46-116); Anion Gap 9 (7-16); Aspartate Amino Transferase 38 U/L (0-34); BUN/Creatinine Ratio 22 Ratio (12-20); Bilirubin,Total 1.1 mg/dL (0.3-1.2); Blood Urea Nitrogen 13 mg/dL (9-23); Calcium 7.5 mg/dL (8.3-10.6); Calcium (Corrected) 8.5 mg/dL (8.5-10.1); Carbon Dioxide 30.0 mMol/L (20.0-31.0); Chloride 93 mMol/L (98-107); Creatinine (Component) 0.6 mg/dL (0.6-1.3); Estimated Creatinine Clearance 140.7 mL/min (>60); Globulin 3.5 gm/dL (2.3-3.5); Glucose 257 mg/dL (74-106); Magnesium 1.9 mg/dL (1.6-2.6); Osmolality,Calculated 273 (275-295); Phosphorous 2.1 mg/dL (2.4-5.1); Potassium 3.5 mMol/L (3.4-5.1); Sodium 132 mMol/L (136-145); Total Protein 6.3 gm/dL (5.7-8.2); eGFR > 60 See Note
[2025-09-18] MEDS: HYDROmorphone INJ 2 MG/ML VIAL 1 MG IVP ×5 (07:18→21:22)
[2025-09-18] MEDS: INSULIN LISPRO (AdmeLOG) 1 UNIT/0.01 ML UNIT SC ×4 (07:31→21:36)
--- NOTE | 2025-09-18 08:03 | ESPR_ITS ---
<Statement entered by Cheryle Willoughby MD - 09/24/25 15:19> I reviewed above note and agree with findings and plans. I have also personally examined the patient with medicine team and went over assessment and plan with medical team including campus recruiting internship and resident physician. <Statement entered by Mattie Sweeney MD - 09/18/25 19:18> pt is seen at bedside, pt reports pain in his right foot. Pt is POD 1 after I&D. Will continue to monitor, cultures are pending, leukocyte count is down trending. Will continue broad spectrum IV abx until cultures results. Patient was seen and examined by me personally. I have directly supervised and reviewed documentation by the team resident and agree with its findings. ------- Plan of care was discussed with the attending, Dr. Case Sweeney, PGY-2 Documentation for date of: 09/18/25 Subjective Subjective Interval history: patient seen and examined at bedside POD 1 from wash out with Dr. georges incisions left open with wound care consulted continues on IV abx Exam Vital Signs Temp Pulse Resp BP Pulse Ox O2 Del Method O2 Flow Rate 97.3 F 95 17 121/70 95 Room Air 2 09/18/25 07:14 09/18/25 07:14 09/18/25 07:14 09/18/25 07:14 09/18/25 07:14 09/18/25 07:14 09/17/25 18:26 Narrative Exam GENERAL: no acute distress, AAO x3, comfortably laying in bed, anxious appearing HEENT: Head AT/ NC. Mucous membranes moist. PERRL. NECK: Supple, no lymphadenopathy, no carotid bruits. CARDIOVASCULAR: RRR. Normal S1/S2, No m/r/g. No pitting edema of bilateral LEs. RESPIRATORY: CTAB. No wheezing, rhonchi, crackles. intermittent cough GASTROINTESTINAL: Abdomen soft, non tender no palpable masses. Bowel sounds present MUSCULOSKELETAL:?R foot post op from wash out with 4 open incisions. No pus. 1.medial dorsal aspect of the R foot, ~8cm, can visualize tendons 2.Plantar surface of R foot with 3x3 cm circular open wound 3.lateral dorsal aspect of R foot/ankle with visible tendons that is ~2x12 cm 4.dorsal surface of R ankle with 2cm incision weaping blood. NEUROLOGICAL: CN II-XII grossly intact. No focal deficits. Sensation intact, symmetric. PSYCHIATRIC: Awake and alert, not agitated, normal mood and affect. SKIN: No obvious rashes, no jaundice, normal turgor. Objective Labs 09/18/25 04:44 09/18/25 04:44 Labs: Laboratory Results - last 24 hr 09/17/25 09/17/25 09/17/25 09:45 09:53 10:09 WBC 25.8 H RBC 4.14 L Hgb 12.4 L Hct 36.2 L MCV 87 MCH 30.0 MCHC 34.3 RDW Std Deviation 44.6 H Plt Count 607 H Neut % (Auto) 85 H Lymph % (Auto) 5 L Bond % (Auto) 6 Eos % (Auto) 0 Baso % (Auto) 0 Neut # (Auto) 21.8 H Lymph # (Auto) 1.2 Bond # (Auto) 1.5 H Eos # (Auto) 0.0 Baso # (Auto) 0.1 Immature Gran # (Auto) 1.22 H Absolute Nucleated RBC 0.00 Immature Gran % 5 H Nucleated RBC % 0 ESR 130 H VBG pH 7.48 VBG pCO2 41 VBG pO2 46 VBG O2 Sat (Arely) 83 L VBG Base Excess 6 H Sodium 128 L Potassium 3.9 Chloride 87 L Carbon Dioxide 26.6 Anion Gap 14 BUN 17 Creatinine 0.9 Estim Creat Clear Calc 93.8 eGFR > 60 BUN/Creatinine Ratio 19 Glucose 412 H* Estimated Ave Glu mg/dL 260 H Hemoglobin A1c 10.7 H Calculated Osmolality 275 Lactic Acid 3.5 H Calcium 9.0 Corrected Calcium 9.3 Phosphorus Magnesium 2.0 Total Bilirubin 1.3 H Direct Bilirubin 0.9 H AST 34 ALT 20 Alkaline Phosphatase 201 H Total Creatine Kinase 120 Troponin I < 0.002 C-Reactive Prot, Quant > 10.0 H B-Natriuretic Peptide 23 Total Protein 7.7 Albumin 3.6 Globulin 4.1 H Albumin/Globulin Ratio 0.9 L Beta-Hydroxybutyrate/Acetoacetate 1.8 H Procalcitonin 1.79 H TSH 2.39 Ur Collection Type Clean Catch Urine Color Yellow Urine Clarity Hazy Urine pH 6.0 Ur Specific Purcell 1.032 Urine Protein 1+ A Urine Glucose (UA) 4+ A Urine Ketones 2+ A Urine Blood Negative Urine Nitrite Negative Urine Bilirubin Negative Urine Urobilinogen (Auto) 4.0 Ur Leukocyte Esterase Positive Urine RBC 3 Urine WBC 16 H Ur Squamous Epith Cells 1 Ur Transition Epith Cell < 1 Urine Bacteria Rare Granular Casts 1 Ur Culture Indicated? Yes 09/17/25 09/18/25 13:28 04:44 WBC 21.1 H RBC 3.51 L Hgb 10.2 L D Hct 30.6 L MCV 87 MCH 29.1 MCHC 33.3 RDW Std Deviation 45.1 H Plt Count 576 H D Neut % (Auto) 86 H Lymph % (Auto) 4 L Bond % (Auto) 6 Eos % (Auto) 1 Baso % (Auto) 0 Neut # (Auto) 18.2 H Lymph # (Auto) 0.9 L Bond # (Auto) 1.3 H Eos # (Auto) 0.1 Baso # (Auto) 0.1 Immature Gran # (Auto) 0.48 H Absolute Nucleated RBC 0.00 Immature Gran % 2 H Nucleated RBC % 0 ESR VBG pH VBG pCO2 VBG pO2 VBG O2 Sat (Arely) VBG Base Excess Sodium 132 L Potassium 3.5 Chloride 93 L Carbon Dioxide 30.0 Anion Gap 9 BUN 13 Creatinine 0.6 Estim Creat Clear Calc 140.7 eGFR > 60 BUN/Creatinine Ratio 22 H Glucose [address] Glu mg/dL Hemoglobin A1c Calculated Osmolality 273 L Lactic Acid 1.7 Calcium 7.5 L D Corrected Calcium 8.5 Phosphorus 2.1 L Magnesium 1.9 Total Bilirubin 1.1 Direct Bilirubin AST 38 H ALT 19 Alkaline Phosphatase 158 H D Total Creatine Kinase Troponin I C-Reactive Prot, Quant B-Natriuretic Peptide Total Protein 6.3 Albumin 2.8 L D Globulin 3.5 Albumin/Globulin Ratio 0.8 L Beta-Hydroxybutyrate/Acetoacetate Procalcitonin TSH Ur Collection Type Urine Color Urine Clarity Urine pH Ur Specific Purcell Urine Protein Urine Glucose (UA) Urine Ketones Urine Blood Urine Nitrite Urine Bilirubin Urine Urobilinogen (Auto) Ur Leukocyte Esterase Urine RBC Urine WBC Ur Squamous Epith Cells Ur Transition Epith Cell Urine Bacteria Granular Casts Ur Culture Indicated? ABG Interpretation ABG results: 09/17/25 09:45 VBG pH 7.48 VBG pCO2 41 VBG pO2 46 VBG Base Excess 6 H Quality Measures Quality Measures VTE prophylaxis Assessment & Plan Assessment Current Active Medications: Generic Name Dose Route Start Last Admin Trade Name Freq PRN Reason Stop Dose Admin Acetaminophen 650 mg 09/17/25 15:09 Acetaminophen 325 Mg Tablet PO 10/17/25 15:08 Q6H PRN Fever >100.4 and mild pain Dextrose 25 ml 09/17/25 19:54 Dextrose 50%-Water Inj 50 Ml Syringe IV 10/17/25 19:53 Q15MIN PRN BG 50-70 responsive npo pt Dextrose 50 ml 09/17/25 19:54 Dextrose 50%-Water Inj 50 Ml Syringe IV 10/17/25 19:53 Q15MIN PRN BG <50 OR BG <70 & pt unresponsive Glucagon 1 mg 09/17/25 19:54 Glucagon Inj 1 Mg Vial IM Q15MIN PRN BG <70, and no IV access Hydromorphone HCl 1 mg 09/17/25 15:09 09/18/25 07:18 Hydromorphone Inj 2 Mg/Ml Vial IVP 09/22/25 15:08 1 mg Q4HR PRN Administration severe pain Pain 9-10 Clindamycin/Sodium Chloride 600 mg in 50 mls @ 100 mls/hr 09/17/25 17:33 09/18/25 06:02 Cleocin/Ns Ivpb IV 09/24/25 17:32 100 mls/hr Q8HR [facility] Administration Piperacillin/Tazobactam/Dextrose 3.375 gm in 50 mls @ 100 mls/hr 09/17/25 18:00 09/18/25 05:27 Zosyn IV 09/24/25 17:59 100 mls/hr Q6HR [facility] Administration Protocol Vancomycin/Sodium Chloride 200 mls @ 120 mls/hr 09/17/25 22:00 09/17/25 23:04 Vancomycin/Ns 1 Gm Ivpb IV 09/24/25 21:59 120 mls/hr Q12H [facility] Administration Protocol Insulin Degludec 7 unit 09/17/25 21:00 09/17/25 22:19 Insulin Degludec 5 Unit/0.05 Ml (Per 5 Units) SC 10/17/25 20:59 7 unit HS [facility] Administration Insulin Human Lispro 0 unit 09/17/25 21:00 09/18/25 07:31 Insulin Lispro (Admelog) 1 Unit/0.01 Ml Unit SC 10/17/25 20:59 4 unit ACHS [facility] Administration Protocol Morphine Sulfate 2 mg 09/17/25 15:09 09/18/25 05:31 Morphine Sulf Inj 4 Mg/Ml Vial IVP 09/22/25 15:08 2 mg Q6HR PRN Administration Pain Scale 6-8 (Severe Ondansetron HCl 4 mg 09/17/25 15:09 Ondansetron Inj 2 Mg/Ml Inj 2 Ml IVP 10/17/25 15:08 Q6H PRN NAUSEA OR VOMITING Protocol Pharmacy Consult 1 each 09/18/25 09:00 Vancomycin Pharmacy To Dose 1 Each Each IV 10/18/25 08:59 QDAY [facility] Plan Mr. Carrera is a 55 year old gentleman with a hx of T2DM- poorly controlled (a1c 10) with no active PCP managment who presented to the ed on 09/17 10 days after a fall from a ladder resulting in injury of his R foot and subsequent errythema and swelling, found to have R foot abscess concerning for nec fasc, s/p incision and drainage with Dr. Georges on 09/17, on IV broad spectrum antibiotics, with plan for likely subsequent incisions and drainages, and possible amputation. POD1, leukocytosis downtrending R foot abscess concerning for necrotizing fasciaitis (POD#1) elevated alk phos s/p I and D with Dr. Georges 09/17 pt presented 10 days after falling off of a ladder at work. he states that his foot got caught in the rung of the ladder and that he fell backwards and twisted and injured his ankle. he did not seek medical attention at that time. His pain and swelling worsened and he experienced chills which prompted him to present to the ED. suspect that R foot wound did not heal 2/2 poorly controlled DM and immunocompromised state and poor peripheral perfusion. Dx Foot CT: Extensive soft tissue infection with gas-forming organisms involving all of the soft tissues of the foot BLE DVT US : negative for DVT wound cultures pending Ucx pending blood cultures ngtd @24hrs Abx Vancomycin 1gm IV pharmacy to dose (09/17- Zosyn 3.375 gm IV q8hr (09/17- Clindamycin 600mg IV q8hr (09/17- Cefepime x1 in the ED Pain management APAP 650 mg PO PRN for fever and mild pain NORCO 3-325 q4hr prn for moderate to severe pain Dilaudid 1mg IV q4hr prn for severe pain Gabapentin 200 mg TID Plan - surgery consulted, appreciate recs, s/p incision and drainage by Dr. Georges on 09/17, wounds left open to promote drainage. Copius pus found during surgery could require multiple incisions, and will require wounds to remain open for adequate drainage. I also informed pt that depending on the extent of the infection and his recovery in the coming days he may go on to require amputation - CTM leukocytosis , CRP, ESR, - Consider repeat imaging, per surgery recommendations - Monitor for new or worsening errythema or crepitus and call flight operations dispatch clerk surgeon emergently given c/f spreading of nec fasc - incentive spirometry for pna ppx - wound care consulted T2DM- poorly controlled A1c 10.7 on admission. pt states that he was diagnosed with dm in 2014, by his pcp and was not initiated on any medication therapies at that time. he was lost to follow up and has not been seen by a PCP since that time. pt states that he initiated dietary changes with intent to control his dm. Plan Degludec 10 units qhs (increased 7-->10) ISS step 3 ACHS Bedside glucose checks Diet, carb consistent diabetes education dietitian consulted, appreciate recs Normocytic Anemia Hgb 10.2, chronic and likely decreased post operatively Plan CTM Mild hyponatremia mild hypochloremia hypophosphatemia Na 132, Cl 93, Plan Encourage PO intake Dispo: med tele, s/p washout of R foot with nec fasc, on IV broad spectrum abx Diet: carb consistent Bowel Reg: senna/docusate prn VTE ppx: hold heparin post surgery, ok for scd on unaffected leg. GI ppx: not indicated Code status: FULL Plan discussed with my attending Dr. Willoughby and my senior Dr. Patel Gordon MD PGY1
[2025-09-18] MEDS: VANCOMYCIN/NS 1 GM IVPB 200 ML IV ×2 (10:09→22:44)
[2025-09-18] MEDS: NAPH,KPH MBDB 1 PACKET (1.5 GM) PO (10:09)
--- NOTE | 2025-09-18 13:41 | PD.SURPROG ---
Documentation for date of: 09/18/25 Subjective Subjective Brief History: 55M with DMII not on medications (pt states he was told he had preDM but had not followed up) presenting with right foot pain, redness and fatigue. Pt states he fell off a ladder on 09/05 and since then noted worsening pain and appearance of his right foot as well as fatigue. In ER he is found to have WBC 25, A1c [address] showing extensive gas and abscess of R foot PMH: DMII (not on meds) PSHx: None Meds: None Allergies: NKDA Social hx: Nonsmoker Narrative: Pt reports pain has improved since I&D but not fully resolved, dilaudid helps but wears off quickly. WBC 21 from , culture pending, remaining afebrile, finger sticks in 200s Exam Vital Signs Temp Pulse Resp BP Pulse Ox O2 Del Method O2 Flow Rate 97.2 F 100 15 136/79 H 94 L Room Air 2 09/18/25 12:00 09/18/25 12:00 09/18/25 12:00 09/18/25 12:00 09/18/25 12:00 09/18/25 12:00 09/17/25 18:26 Constitutional Constitutional: no acute distress Routine Respiratory Exam Respiratory: Present no resp distress Results Results: Laboratory Laboratory results: results reviewed Assessment & Plan Plan 55M with DMII not on meds (A1c 10) presenting with extensive right foot abscess, no signs of osteomyelitis s/p I&D 09/17, gradually recovering Appreciate wound care recs Follow up cultures Will reexamine wound tomorrow PROCEDURES: Procedures Incision and drainage of right foot abscess
[2025-09-18] MEDS: GABAPENTIN 100 MG CAPSULE 200 MG PO ×2 (14:26→21:22)
[2025-09-18] MEDS: FAMOTIDINE 20 MG TABLET PO (17:52)
[2025-09-18] MEDS: INSULIN DEGLUDEC 5 UNIT/0.05 ML (PER 5 UNITS) 10 UNIT SC (21:35)
[2025-09-18 22:36] LABS: Vancomycin,Trough 5.8 mcg/mL (5.0-10.0)
[2025-09-19] VITALS (9 sets, daily range): BP systolic 99–126; BP diastolic 63–84; PULSE 76–98; RESP 16–99; TEMP 36.1–36.7; O2SAT 93–99
[2025-09-19] MEDS: PIPER/TAZO 3.375 GM PREMIX 3.375 GM/50 ML BAG IV ×5 (01:17→23:38)
[2025-09-19] MEDS: GABAPENTIN 100 MG CAPSULE 200 MG PO ×3 (05:07→21:42)
[2025-09-19] MEDS: CLINDAMYCIN/NS 600 MG IVPB 600 MG/50 ML BAG 100 MG IV ×3 (05:08→21:42)
[2025-09-19] MEDS: HYDROmorphone INJ 2 MG/ML VIAL 1 MG IVP ×4 (05:08→20:40)
[2025-09-19 05:20] LABS: Basophils # (Auto) 0.1 Thou/mm3 (0.0-0.2); Basophils % (Auto) 0 % (0-2.5); Eosinophils # (Auto) 0.1 Thou/mm3 (0.0-0.5); Eosinophils % (Auto) 0 % (0-10); Hematocrit 28.3 % (41.0-53.0); Hemoglobin 9.5 g/dL (13.5-16.0); Immature Granulocytes Auto 0.74 Thou/mm3 (0.00-0.00); Lymphocytes # (Auto) 1.6 Thou/mm3 (1.0-4.8); Lymphocytes % (Auto) 8 % (10-50); Mean Corpuscular HGB Conc 33.6 g/dl (31.0-37.0); Mean Corpuscular Hemoglobin 29.0 pg (25.0-35.0); Mean Corpuscular Volume 86 fL (80-100); Monocytes # (Auto) 1.7 Thou/mm3 (0.0-0.8); Monocytes % (Auto) 9 % (0-12); Neutrophils # (Auto) 15.7 Thou/mm3 (1.8-7.7); Neutrophils % (Auto) 79 % (37-80); Nucleated Red Blood Cell # 0.00 Thou/mm3 (0.00-0.00); Nucleated Red Blood Cell % 0 /100 WBC (0); Platelet Count 650 Thou/mm3 (140-440); RDW Standard Deviation 44.6 fL (35.1-43.9); Red Blood Count 3.28 Miln/mm3 (4.50-5.90); White Blood Count 19.9 Thou/mm3 (3.8-10.6)
[2025-09-19 05:55] LABS: Alanine Aminotransferase 18 U/L (10-49); Albumin, Serum 2.8 gm/dL (3.5-5.0); Albumin/Globulin Ratio 0.8 (1.2-2.2); Alkaline Phosphatase 157 U/L (46-116); Anion Gap 9 (7-16); Aspartate Amino Transferase 34 U/L (0-34); BUN/Creatinine Ratio 13 Ratio (12-20); Bilirubin,Total 0.8 mg/dL (0.3-1.2); Blood Urea Nitrogen 10 mg/dL (9-23); Calcium 7.5 mg/dL (8.3-10.6); Calcium (Corrected) 8.5 mg/dL (8.5-10.1); Carbon Dioxide 29.0 mMol/L (20.0-31.0); Chloride 91 mMol/L (98-107); Creatinine (Component) 0.8 mg/dL (0.6-1.3); Estimated Creatinine Clearance 102.1 mL/min (>60); Globulin 3.6 gm/dL (2.3-3.5); Glucose 237 mg/dL (74-106); Magnesium 1.8 mg/dL (1.6-2.6); Osmolality,Calculated 265 (275-295); Phosphorous 2.0 mg/dL (2.4-5.1); Potassium 3.6 mMol/L (3.4-5.1); Sodium 129 mMol/L (136-145); Total Protein 6.4 gm/dL (5.7-8.2); eGFR > 60 See Note
--- NOTE | 2025-09-19 07:51 | CHAP ---
Patient ws visited by a Spiritual Care Volunteer on 09/18/2025 between 0900 and 1200 and received comfort, encouragement and/or prayer.
[2025-09-19] MEDS: INSULIN LISPRO (AdmeLOG) 1 UNIT/0.01 ML UNIT SC ×4 (08:01→20:43)
--- NOTE | 2025-09-19 08:15 | ESPR_ITS ---
<Statement entered by Cheryle Willoughby MD - 09/24/25 15:21> I reviewed above note and agree with findings and plans. I have also personally examined the patient with medicine team and went over assessment and plan with medical team including internet site designer and resident physician. <Statement entered by Mattie Sweeney MD - 09/19/25 22:20> Pt is seen at bedside, POD2 after I&D. Pt complains of signifcant pain in rigth foot. Wound care wrapped the foot. Surgery is planning to repeat I&D with washout tomorrow. Will continue broad spectrum IV antibiotics while wound culture is pending. Patient was seen and examined by me personally. I have directly supervised and reviewed documentation by the team resident and agree with its findings. ------- Plan of care was discussed with the attending, Dr. Case Sweeney, PGY-2 Documentation for date of: 09/19/25 Subjective Subjective Interval history: patient seen and examined while wound care bandaging foot plan for 2nd i and d with dr. georges tomorrow npo at midnight scheduled norco and dilaudid for prn breakthrough pain wound culture with strep dysgalactai Exam Vital Signs Temp Pulse Resp BP Pulse Ox O2 Del Method O2 Flow Rate 97 F 87 18 126/79 96 Room Air 2 09/19/25 08:00 09/19/25 08:00 09/19/25 08:00 09/19/25 08:00 09/19/25 08:00 09/19/25 08:00 09/17/25 18:26 Narrative Exam GENERAL: no acute distress, AAO x3, comfortably laying in bed, anxious appearing HEENT: Head AT/ NC. Mucous membranes moist. PERRL. NECK: Supple, no lymphadenopathy, no carotid bruits. CARDIOVASCULAR: RRR. Normal S1/S2, No m/r/g. No pitting edema of bilateral LEs. RESPIRATORY: CTAB. No wheezing, rhonchi, crackles. intermittent cough GASTROINTESTINAL: Abdomen soft, non tender no palpable masses. Bowel sounds present MUSCULOSKELETAL:?R foot post op from wash out with 4 open incisions. No pus. 1.medial dorsal aspect of the R foot, ~8cm, can visualize tendons - copius pus expressed 2.Plantar surface of R foot with 3x3 cm circular open wound 3.lateral dorsal aspect of R foot/ankle with visible tendons that is ~2x12 cm - DUSKY per wound care nurse 4.dorsal surface of R ankle with 2cm incision weaping blood. NEUROLOGICAL: CN II-XII grossly intact. No focal deficits. Sensation intact, symmetric. PSYCHIATRIC: Awake and alert, not agitated, normal mood and affect. SKIN: No obvious rashes, no jaundice, normal turgor. Objective Labs 09/19/25 04:55 09/19/25 04:55 Labs: Laboratory Results - last 24 hr 09/18/25 09/19/25 21:25 04:55 WBC 19.9 H RBC 3.28 L Hgb 9.5 L Hct 28.3 L MCV 86 MCH 29.0 MCHC 33.6 RDW Std Deviation 44.6 H Plt Count 650 H D Neut % (Auto) 79 Lymph % (Auto) 8 L [place] % (Auto) 9 Eos % (Auto) 0 Baso % (Auto) 0 Neut # (Auto) 15.7 H Lymph # (Auto) 1.6 [place] # (Auto) 1.7 H Eos # (Auto) 0.1 Baso # (Auto) 0.1 Immature Gran # (Auto) 0.74 H Absolute Nucleated RBC 0.00 Immature Gran % 4 H Nucleated RBC % 0 Sodium 129 L Potassium 3.6 Chloride 91 L Carbon Dioxide 29.0 Anion Gap 9 BUN 10 Creatinine 0.8 Estim Creat Clear Calc 102.1 eGFR > 60 BUN/Creatinine Ratio 13 Glucose 237 H Calculated Osmolality 265 L Calcium 7.5 L Corrected Calcium 8.5 Phosphorus 2.0 L Magnesium 1.8 Total Bilirubin 0.8 AST 34 ALT 18 Alkaline Phosphatase 157 H Total Protein 6.4 Albumin 2.8 L Globulin 3.6 H Albumin/Globulin Ratio 0.8 L Vancomycin Trough 5.8 ABG Interpretation ABG results: 09/17/25 09:45 VBG pH 7.48 VBG pCO2 41 VBG pO2 46 VBG Base Excess 6 H Quality Measures Quality Measures VTE prophylaxis Assessment & Plan Assessment Current Active Medications: Generic Name Dose Route Start Last Admin Trade Name Freq PRN Reason Stop Dose Admin Acetaminophen 650 mg 09/17/25 15:09 Acetaminophen 325 Mg Tablet PO 10/17/25 15:08 Q6H PRN Fever >100.4 and mild pain Hydrocodone Bitart/Acetaminophen 1 tab 09/18/25 11:58 Hydrocodone/Apap 5/325 Tablet PO 09/23/25 11:57 Q4HR PRN PAIN SCALE 4-6 (Moderate Dextrose 25 ml 09/17/25 19:54 Dextrose 50%-Water Inj 50 Ml Syringe IV 10/17/25 19:53 Q15MIN PRN BG 50-70 responsive npo pt Dextrose 50 ml 09/17/25 19:54 Dextrose 50%-Water Inj 50 Ml Syringe IV 10/17/25 19:53 Q15MIN PRN BG <50 OR BG <70 & pt unresponsive Gabapentin 200 mg 09/18/25 14:00 09/19/25 05:07 Gabapentin 100 Mg Capsule PO 10/18/25 13:59 200 mg TID [facility]TER Administration Glucagon 1 mg 09/17/25 19:54 Glucagon Inj 1 Mg Vial IM Q15MIN PRN BG <70, and no IV access Hydromorphone HCl 1 mg 09/17/25 15:09 09/19/25 05:08 Hydromorphone Inj 2 Mg/Ml Vial IVP 09/22/25 15:08 1 mg Q4HR PRN Administration severe pain Pain 9-10 Clindamycin/Sodium Chloride 600 mg in 50 mls @ 100 mls/hr 09/17/25 17:33 09/19/25 05:08 Cleocin/Ns Ivpb IV 09/24/25 17:32 100 mls/hr Q8HR [facility] Administration Piperacillin/Tazobactam/Dextrose 3.375 gm in 50 mls @ 100 mls/hr 09/17/25 18:00 09/19/25 06:08 Zosyn IV 09/24/25 17:59 100 mls/hr Q6HR [facility] Administration Protocol Vancomycin/Sodium Chloride 750 mg in 150 mls @ 120 mls/hr 09/19/25 09:00 Vancomycin/Ns 750 Mg Ivpb IV 09/26/25 08:59 Q8HR [facility] Protocol Lactated Ringer's 1,000 mls @ 85 mls/hr 09/19/25 07:56 Lactated Ringers IV 09/20/25 07:27 .[id number] [facility] Magnesium Sulfate 4 gm in 50 mls @ 12.5 mls/hr 09/19/25 08:04 Magnesium Sulfate Ivpb IV 09/19/25 12:03 X1 ONE Insulin Degludec 15 unit 09/19/25 21:00 Insulin Degludec 5 Unit/0.05 Ml (Per 5 Units) SC 10/19/25 20:59 HS [facility] Insulin Human Lispro 0 unit 09/17/25 21:00 09/19/25 08:01 Insulin Lispro (Admelog) 1 Unit/0.01 Ml Unit SC 10/17/25 20:59 5 unit ACHS [facility] Administration Protocol Insulin Human Lispro 3 unit 09/19/25 11:30 Insulin Lispro (Admelog) 1 Unit/0.01 Ml Unit HI 10/19/25 11:29 AC [facility] Ondansetron HCl 4 mg 09/17/25 15:09 Ondansetron Inj 2 Mg/Ml Inj 2 Ml IVP 10/17/25 15:08 Q6H PRN NAUSEA OR VOMITING Protocol Pharmacy Consult 1 each 09/18/25 09:00 09/18/25 10:03 Vancomycin Pharmacy To Dose 1 Each Each IV 10/18/25 08:59 Not Given QDAY [facility] Plan Mr. Carrera is a 55 year old gentleman with a hx of T2DM- poorly controlled (a1c 10) with no active PCP managment who presented to the ed on 09/17 10 days after a fall from a ladder resulting in injury of his R foot and subsequent errythema and swelling, found to have R foot abscess concerning for nec fasc, s/p incision and drainage with Dr. Georges on 09/17, on IV broad spectrum antibiotics, with plan for likely subsequent incisions and drainages, and possible amputation. POD1, leukocytosis downtrending R foot abscess concerning for necrotizing fasciaitis (POD#1) elevated alk phos s/p I and D with Dr. eGorges 09/17 pt presented 10 days after falling off of a ladder at work. he states that his foot got caught in the rung of the ladder and that he fell backwards and twisted and injured his ankle. he did not seek medical attention at that time. His pain and swelling worsened and he experienced chills which prompted him to present to the ED. suspect that R foot wound did not heal 2/2 poorly controlled DM and immunocompromised state and poor peripheral perfusion. leukocytosis is downtrending, lots of pus expressed during wound care on 09/[address]: Extensive soft tissue infection with gas-forming organisms involving all of the soft tissues of the foot BLE DVT US : negative for DVT wound cultures prelim with Strep Dysgalataie, pending sensitivities Ucx NGTD blood cultures ngtd @24hrs Abx Vancomycin 1gm IV pharmacy to dose (09/17- Zosyn 3.375 gm IV q8hr (09/17- Clindamycin 600mg IV q8hr (09/17- Cefepime x1 in the ED Pain management APAP 650 mg PO PRN for fever and mild pain NORCO 3-325 q4hr prn for moderate to severe pain Dilaudid 1mg IV q4hr prn for severe pain Gabapentin 200 mg TID Plan - surgery consulted, appreciate recs, s/p incision and drainage by Dr. Georges on 09/17, wounds left open to promote drainage. Copius pus found during surgery - NPO at midight pending 2nd washout with dr. georges on 09/20 could require multiple incisions, and will require wounds to remain open for adequate drainage. I also informed pt that depending on the extent of the infection and his recovery in the coming days he may go on to require amputation - CTM leukocytosis , CRP, ESR, - Consider repeat imaging, per surgery recommendations - Monitor for new or worsening errythema or crepitus and call secured entrance monitor surgeon emergently given c/f spreading of nec fasc - incentive spirometry for pna ppx - wound care consulted T2DM- poorly controlled A1c 10.7 on admission. pt states that he was diagnosed with dm in 2014, by his pcp and was not initiated on any medication therapies at that time. he was lost to follow up and has not been seen by a PCP since that time. pt states that he initiated dietary changes with intent to control his dm. Plan Lispro 3 units TID with meals scheduled Degludec 15 units qhs (increased 7-->10-->15) ISS step 3 ACHS Bedside glucose checks Diet, carb consistent diabetes education dietitian consulted, appreciate recs Normocytic Anemia Hgb 10.2, chronic and likely decreased post operatively Plan CTM Mild hyponatremia mild hypochloremia hypophosphatemia Corrected Sodium for hyperglucemia 132. Plan Encourage PO intake IVF replete as indicated eat something salty (ie pretzles) Dispo: med tele, s/p washout of R foot with nec fasc, on IV broad spectrum abx, prelim wound cultures with strep dysgalactae Diet: carb consistent Bowel Reg: senna/docusate prn VTE ppx: hold heparin post surgery, ok for scd on unaffected leg. GI ppx: not indicated Code status: FULL Plan discussed with my attending Dr. Willoughby and my senior Dr. Patel Gordon MD PGY1
--- NOTE | 2025-09-19 09:08 | PC.SS ---
Patient is alert/oriented. Patient was able to verify demographics. Patient is independent with ADL's. No DME. He resides with his diagnostic imaging manager and their son. Patient had a debridement yesterday. Admitted for necrotizing fascitis. Patient may need bka per physician notes. PCP: Dr. Waite. Last appt. was a week ago. Pharmacy: [facility] [place] [facility]. Patient does not see any other physicians for out patient services. Discharge plan is to return home. Patient may need HH and DME. Alt medical decision maker: Projection Welding Machine Operator, Lisa Lawson, .
[2025-09-19] MEDS: NAPH,KPH MBDB 1 PACKET (1.5 GM) 2 PACKET PO (09:11)
[2025-09-19] MEDS: RINGERS LACTATED 1000 ML 1,000 ML 85 ML IV ×2 (09:11→21:38)
[2025-09-19] MEDS: Magnesium Sulfate 4 GM Ivpb 4 GM/50 ML BAG IV (09:12)
--- NOTE | 2025-09-19 09:12 | PD.SURPROG ---
Documentation for date of: 09/19/25 Subjective Subjective Brief History: 55M with DMII not on medications (pt states he was told he had preDM but had not followed up) presenting with right foot pain, redness and fatigue. Pt states he fell off a ladder on 09/05 and since then noted worsening pain and appearance of his right foot as well as fatigue. In ER he is found to have WBC 25, A1c [address] showing extensive gas and abscess of R foot PMH: DMII (not on meds) PSHx: None Meds: None Allergies: NKDA Social hx: Nonsmoker Narrative: Pt reports ongoing pain, WBC 19, culture grew strep dysgalactiae Exam Vital Signs Temp Pulse Resp BP Pulse Ox O2 Del Method O2 Flow Rate 97 F 87 18 126/79 96 Room Air 2 09/19/25 08:00 09/19/25 08:00 09/19/25 08:00 09/19/25 08:00 09/19/25 08:00 09/19/25 08:00 09/17/25 18:26 Constitutional Constitutional: no acute distress Routine Respiratory Exam Respiratory: Present no resp distress Routine Extremities Exam Comments: right foot with pus expressed from dorsal medial incision, necrotic and fibrinous tissue throughout the lateral incision. there is a bulla at the medial heel Results Results: Laboratory Laboratory results: results reviewed Assessment & Plan Plan 55M with DMII not on meds (A1c 10) presenting with extensive right foot abscess, no signs of osteomyelitis s/p I&D 09/17, with ongoing edema and pus Will repeat I&D, excisional debridement tomorrow afternoon Pt understands he may go on to need BKA NPO after MN PROCEDURES: Procedures Incision and drainage of right foot abscess
[2025-09-19] MEDS: VANCOMYCIN/NS 750 MG IVPB 750 MG/150 ML BAG 120 MG IV ×3 (09:16→21:40)
[2025-09-19] MEDS: HYDROcodone/APAP 5/325 TABLET 1 TAB PO ×2 (10:27→14:46)
[2025-09-19] MEDS: INSULIN LISPRO (AdmeLOG) 1 UNIT/0.01 ML UNIT 3 UNIT SC ×2 (12:10→17:08)
[2025-09-19] MEDS: INSULIN DEGLUDEC 5 UNIT/0.05 ML (PER 5 UNITS) 15 UNIT SC (20:43)
[2025-09-20] VITALS (19 sets, daily range): BP systolic 85–156; BP diastolic 53–93; PULSE 67–111; RESP 14–95; TEMP 35.8–36.9; O2SAT 94–100
[2025-09-20] MEDS: HYDROmorphone INJ 2 MG/ML VIAL 1 MG IVP ×3 (00:33→15:44)
[2025-09-20] MEDS: CLINDAMYCIN/NS 600 MG IVPB 600 MG/50 ML BAG 100 MG IV ×3 (05:04→21:42)
[2025-09-20] MEDS: PIPER/TAZO 3.375 GM PREMIX 3.375 GM/50 ML BAG IV ×4 (05:04→23:16)
[2025-09-20] MEDS: GABAPENTIN 100 MG CAPSULE 200 MG PO ×3 (05:45→21:39)
[2025-09-20 05:51] LABS: Basophils # (Auto) 0.1 Thou/mm3 (0.0-0.2); Basophils % (Auto) 0 % (0-2.5); Eosinophils # (Auto) 0.1 Thou/mm3 (0.0-0.5); Eosinophils % (Auto) 1 % (0-10); Hematocrit 27.0 % (41.0-53.0); Hemoglobin 9.2 g/dL (13.5-16.0); Immature Granulocytes Auto 0.57 Thou/mm3 (0.00-0.00); Lymphocytes # (Auto) 1.2 Thou/mm3 (1.0-4.8); Lymphocytes % (Auto) 7 % (10-50); Mean Corpuscular HGB Conc 34.1 g/dl (31.0-37.0); Mean Corpuscular Hemoglobin 29.7 pg (25.0-35.0); Mean Corpuscular Volume 87 fL (80-100); Monocytes # (Auto) 1.4 Thou/mm3 (0.0-0.8); Monocytes % (Auto) 8 % (0-12); Neutrophils # (Auto) 14.5 Thou/mm3 (1.8-7.7); Neutrophils % (Auto) 81 % (37-80); Nucleated Red Blood Cell # 0.00 Thou/mm3 (0.00-0.00); Nucleated Red Blood Cell % 0 /100 WBC (0); Platelet Count 673 Thou/mm3 (140-440); RDW Standard Deviation 45.7 fL (35.1-43.9); Red Blood Count 3.10 Miln/mm3 (4.50-5.90); White Blood Count 17.8 Thou/mm3 (3.8-10.6)
[2025-09-20 06:21] LABS: Alanine Aminotransferase 24 U/L (10-49); Albumin, Serum 2.7 gm/dL (3.5-5.0); Albumin/Globulin Ratio 0.8 (1.2-2.2); Alkaline Phosphatase 182 U/L (46-116); Anion Gap 5 (7-16); Aspartate Amino Transferase 52 U/L (0-34); BUN/Creatinine Ratio 13 Ratio (12-20); Bilirubin,Total 1.1 mg/dL (0.3-1.2); Blood Urea Nitrogen 9 mg/dL (9-23); Calcium 7.5 mg/dL (8.3-10.6); Calcium (Corrected) 8.5 mg/dL (8.5-10.1); Carbon Dioxide 29.3 mMol/L (20.0-31.0); Chloride 96 mMol/L (98-107); Creatinine (Component) 0.7 mg/dL (0.6-1.3); Estimated Creatinine Clearance 116.7 mL/min (>60); Globulin 3.6 gm/dL (2.3-3.5); Glucose 199 mg/dL (74-106); Magnesium 2.0 mg/dL (1.6-2.6); Osmolality,Calculated 265 (275-295); Phosphorous 3.1 mg/dL (2.4-5.1); Potassium 3.8 mMol/L (3.4-5.1); Sodium 130 mMol/L (136-145); Total Protein 6.3 gm/dL (5.7-8.2); Vancomycin,Trough 12.8 mcg/mL (5.0-10.0); eGFR > 60 See Note
[2025-09-20] MEDS: VANCOMYCIN/NS 750 MG IVPB 750 MG/150 ML BAG 120 MG IV ×3 (07:31→21:42)
--- NOTE | 2025-09-20 07:47 | ESPR_ITS ---
<Statement entered by Cheryle Willoughby MD - 09/24/25 15:24> I reviewed above note and agree with findings and plans. I have also personally examined the patient with medicine team and went over assessment and plan with medical team including tech intern and resident physician. Documentation for date of: 09/20/25 Subjective Subjective Interval history: patient seen and examined at bedside his pain is poorly controlled with norco 5 and norco 10. tried oxycodone 5 with minimal relief. pt may benefit from a tool mechanic. pt pending surgery this afternoon with Dr. Georges Exam Vital Signs Temp Pulse Resp BP Pulse Ox O2 Del Method O2 Flow Rate 98.0 F 85 18 99/58 L 99 Room Air 2 09/20/25 04:00 09/20/25 04:00 09/20/25 04:00 09/20/25 04:00 09/20/25 04:00 09/20/25 04:00 09/17/25 18:26 Narrative Exam GENERAL: no acute distress, AAO x3, comfortably laying in bed, anxious appearing HEENT: Head AT/ NC. Mucous membranes moist. PERRL. NECK: Supple, no lymphadenopathy, no carotid bruits. CARDIOVASCULAR: RRR. Normal S1/S2, No m/r/g. No pitting edema of bilateral LEs. RESPIRATORY: CTAB. No wheezing, rhonchi, crackles. intermittent cough GASTROINTESTINAL: Abdomen soft, non tender no palpable masses. Bowel sounds present MUSCULOSKELETAL:?R foot post op from wash out with 4 open incisions. pending second i and d today, some drainage noted through the kerlex bandage NEUROLOGICAL: CN II-XII grossly intact. No focal deficits. Sensation intact, symmetric. PSYCHIATRIC: Awake and alert, not agitated, normal mood and affect. SKIN: No obvious rashes, no jaundice, normal turgor. Objective Labs 09/21/25 04:20 09/21/25 04:20 Labs: Laboratory Results - last 24 hr 09/20/25 04:54 WBC 17.8 H RBC 3.10 L Hgb 9.2 L Hct 27.0 L MCV 87 MCH 29.7 MCHC 34.1 RDW Std Deviation 45.7 H Plt Count 673 H Neut % (Auto) 81 H Lymph % (Auto) 7 L [place] % (Auto) 8 Eos % (Auto) 1 Baso % (Auto) 0 Neut # (Auto) 14.5 H Lymph # (Auto) 1.2 [place] # (Auto) 1.4 H Eos # (Auto) 0.1 Baso # (Auto) 0.1 Immature Gran # (Auto) 0.57 H Absolute Nucleated RBC 0.00 Immature Gran % 3 H Nucleated RBC % 0 Sodium 130 L Potassium 3.8 Chloride 96 L Carbon Dioxide 29.3 Anion Gap 5 L BUN 9 Creatinine 0.7 Estim Creat Clear Calc 116.7 eGFR > 60 BUN/Creatinine Ratio 13 Glucose 199 H Calculated Osmolality 265 L Calcium 7.5 L Corrected Calcium 8.5 Phosphorus 3.1 Magnesium 2.0 Total Bilirubin 1.1 AST 52 H ALT 24 Alkaline Phosphatase 182 H D Total Protein 6.3 Albumin 2.7 L Globulin 3.6 H Albumin/Globulin Ratio 0.8 L Vancomycin Trough 12.8 H ABG Interpretation ABG results: 09/17/25 09:45 VBG pH 7.48 VBG pCO2 41 VBG pO2 46 VBG Base Excess 6 H Quality Measures Quality Measures VTE prophylaxis Assessment & Plan Assessment Current Active Medications: Generic Name Dose Route Start Last Admin Trade Name Freq PRN Reason Stop Dose Admin Acetaminophen 650 mg 09/17/25 15:09 Acetaminophen 325 Mg Tablet PO 10/17/25 15:08 Q6H PRN Fever >100.4 and mild pain Hydrocodone Bitart/Acetaminophen 1 tab 09/19/25 18:00 09/20/25 05:45 Hydrocodone/Apap 10/325 Tab PO 09/24/25 17:59 1 tab Q6HR [facility] Administration Dextrose 25 ml 09/17/25 19:54 Dextrose 50%-Water Inj 50 Ml Syringe IV 10/17/25 19:53 Q15MIN PRN BG 50-70 responsive npo pt Dextrose 50 ml 09/17/25 19:54 Dextrose 50%-Water Inj 50 Ml Syringe IV 10/17/25 19:53 Q15MIN PRN BG <50 OR BG <70 & pt unresponsive Gabapentin 200 mg 09/18/25 14:00 09/20/25 05:45 Gabapentin 100 Mg Capsule PO 10/18/25 13:59 200 mg TID [facility]ALTER Administration Glucagon 1 mg 09/17/25 19:54 Glucagon Inj 1 Mg Vial IM Q15MIN PRN BG <70, and no IV access Hydromorphone HCl 1 mg 09/17/25 15:09 09/20/25 05:03 Hydromorphone Inj 2 Mg/Ml Vial IVP 09/22/25 15:08 1 mg Q4HR PRN Administration severe pain Pain 9-10 Clindamycin/Sodium Chloride 600 mg in 50 mls @ 100 mls/hr 09/17/25 17:33 09/20/25 05:04 Cleocin/Ns Ivpb IV 09/24/25 17:32 100 mls/hr Q8HR [facility] Administration Piperacillin/Tazobactam/Dextrose 3.375 gm in 50 mls @ 100 mls/hr 09/17/25 18:00 09/20/25 05:04 Zosyn IV 09/24/25 17:59 100 mls/hr Q6HR [facility] Administration Protocol Vancomycin/Sodium Chloride 750 mg in 150 mls @ 120 mls/hr 09/19/25 09:00 09/20/25 07:31 Vancomycin/Ns 750 Mg Ivpb IV 09/26/25 08:59 120 mls/hr Q8HR [facility] Administration Protocol Sodium Chloride 1,000 mls @ 100 mls/hr 09/20/25 07:32 Ns IV 09/21/25 03:31 .Q10H [facility] Insulin Degludec 15 unit 09/19/25 21:00 09/19/25 20:43 Insulin Degludec 5 Unit/0.05 Ml (Per 5 Units) SC 10/19/25 20:59 15 unit HS [facility] Administration Insulin Human Lispro 3 unit 09/19/25 11:30 09/19/25 17:08 Insulin Lispro (Admelog) 1 Unit/0.01 Ml Unit SC 10/19/25 11:29 3 unit AC [facility] Administration Insulin Human Lispro 0 unit 09/20/25 06:00 09/20/25 05:10 Insulin Lispro (Admelog) 1 Unit/0.01 Ml Unit SC 10/20/25 05:59 Not Given Q6HR [facility] Protocol Ondansetron HCl 4 mg 09/17/25 15:09 Ondansetron Inj 2 Mg/Ml Inj 2 Ml IVP 10/17/25 15:08 Q6H PRN NAUSEA OR VOMITING Protocol Pharmacy Consult 1 each 09/18/25 09:00 09/19/25 09:16 Vancomycin Pharmacy To Dose 1 Each Each IV 10/18/25 08:59 Not Given QDAY [facility] Plan Mr. Carrera is a 55 year old gentleman with a hx of T2DM- poorly controlled (a1c 10) with no active PCP managment who presented to the ed on 09/17 10 days after a fall from a ladder resulting in injury of his R foot and subsequent errythema and swelling, found to have R foot abscess concerning for nec fasc, s/p incision and drainage with Dr. Georges on 09/17, on IV broad spectrum antibiotics, with plan for likely subsequent incisions and drainages, and possible amputation. POD2, leukocytosis downtrending, pending second i and d 09.20 R foot abscess concerning for necrotizing fasciaitis s/p I and Dx2 elevated alk phos s/p I and D with Dr. Georges 09/17 pt presented 10 days after falling off of a ladder at work. he states that his foot got caught in the rung of the ladder and that he fell backwards and twisted and injured his ankle. he did not seek medical attention at that time. His pain and swelling worsened and he experienced chills which prompted him to present to the ED. suspect that R foot wound did not heal 2/2 poorly controlled DM and immuno compromised state and poor peripheral perfusion. leukocytosis is downtrending, lots of pus expressed during wound care on 09/19 09/20 pending second I and D Dx Foot CT: Extensive soft tissue infection with gas-forming organisms involving all of the soft tissues of the foot BLE DVT US : negative for DVT wound cultures prelim with Strep Dysgalataie, pending sensitivities Ucx NGTD blood cultures ngtd @48 hours Abx Vancomycin 1gm IV pharmacy to dose (09/17- Zosyn 3.375 gm IV q8hr (09/17- Clindamycin 600mg IV q8hr (09/17- Cefepime x1 in the ED Pain management APAP 650 mg PO PRN for fever and mild pain d/c NORCO 5-325 q4hr prn for moderate to severe pain trial oxycodone 5mg q6hr prn for moderate to severe pain Dilaudid 1mg IV q4hr prn for severe pain Gabapentin 200 mg TID- pt reports that it makes him very tired but with minimal relief of his foot pain consider dilaudid tool mechanic for better pain control Plan - surgery consulted, appreciate recs, s/p incision and drainage by Dr. Georges on 09/17, wounds left open to promote drainage. Copius pus found during surgery - NPO at midight pending 2nd washout with dr. georges on 09/20 could require multiple incisions, and will require wounds to remain open for adequate drainage. I also informed pt that depending on the extent of the infection and his recovery in the coming days he may go on to require amputation - CTM leukocytosis , CRP, ESR, - Consider repeat imaging, per surgery recommendations - Monitor for new or worsening errythema or crepitus and call manager construction surgeon emergently given c/f spreading of nec fasc - incentive spirometry for pna ppx - wound care consulted T2DM- poorly controlled A1c 10.7 on admission. pt states that he was diagnosed with dm in 2014, by his pcp and was not initiated on any medication therapies at that time. he was lost to follow up and has not been seen by a PCP since that time. pt states that he initiated dietary changes with intent to control his dm. Plan Lispro 3 units TID with meals scheduled Degludec 15 units qhs (increased 7-->10-->15) ISS step 3 ACHS Bedside glucose checks Diet, carb consistent diabetes education dietitian consulted, appreciate recs Normocytic Anemia Hgb 10.2, chronic and likely decreased post operatively Plan CTM Mild hyponatremia mild hypochloremia hypophosphatemia Plan IVF with NS replete as indicated Dispo: med tele, s/p washout of R foot with nec fasc, on IV broad spectrum abx, pending wound culture sensitives, pending surgery today for second I and D Diet: carb consistent Bowel Reg: senna/docusate prn VTE ppx: hold heparin post surgery, ok for scd on unaffected leg. GI ppx: not indicated Code status: FULL Plan discussed with my attending Dr. Case Gordon MD PGY1
[2025-09-20] MEDS: SODIUM CHLORIDE 0.9% 1000 ML 1,000 ML 100 ML IV (07:59)
[2025-09-20] MEDS: HYDROmorphone INJ 2 MG/ML VIAL IVP (09:06)
[2025-09-20] MEDS: oxyCODONE HCL 5 MG IR TAB PO (10:48)
--- NOTE | 2025-09-20 12:08 | PC.NURSE ---
LMVM for MD to return call for patient's pain med
--- NOTE | 2025-09-20 14:25 | SUR.PHASEI ---
1426 Patient arrived to recovery resting comfortably in bed, on oxygen 8L via oxy mask, drowsy and talking with staff, breathing unlabored, vital signs stable, denies pain, dressing intact to right foot; packed with lolis wet to dry, adaptic, fluffs, abd, kerlix roll, silk tape, no bleeding noted, denies nausea, report received from Jimmy MUNIZ/Christiano PABON and Naa FABIAN
--- NOTE | 2025-09-20 14:26 | PD.SUROPNT ---
Date of Procedure 09/20/25 Pre Op Diagnosis Left foot abscess Post Op Diagnosis Same Procedure Incision and drainage of right foot abscess, excisional debridement Findings Right foot abscess and necrotic tissue Procedure Description After discussion of risks and benefits, pt was brought to OR and general anesthesia with LMA was induced. He received preoperative antibiotics and was prepped and draped in the usual sterile fashion. After timeout the existing incision of the lateral foot was sharply debrided using a curette. Overlying the lateral malleolus there was significant necrotic tissue and approx 15cc of pus were expressed. The necrotic tissue was sharply debrided down to the level of bone. I then moved onto the more medial incision on the dorsum of the foot and again sharply debrided necrotic tissue down to the level of bone. On the medial aspect of the foot, both distally and overlying the medial malleolus there was necrotic skin which was sharply excised to the level of subcutaneous tissue using scissors. The wound on the plantar surface of the foot was curetted down to the level of subcutaneous tissue. Each wound was irrigated with betadine, hydrogen peroxide and saline and also irrigated with a pulsavac. There was minimal bleeding which was controlled with electrocautery. Each wound was packed with moistened kerlix, covered with adaptic and then wrapped with fluffs, abdominal pads and secured with kerlix. Pt was extubated and brought to PACU in stable condition Pathology / specimen None Estimated Blood Loss 20 Surgeon Kimmie Ruffin MD Surgical Staff Operation Date: 09/20/25 12:30 Case Staff OUTDOOR EMERGENCY CARE TECHNICIAN: Eric Samuels
--- NOTE | 2025-09-20 15:10 | SUR.PHASEI ---
[id number] patient transported via bed to room 382 without incident, BINGO USHER promptly in patient room to obtain vital signs, BINGO USHER remain at bedside when this investigative writer left patent room
--- NOTE | 2025-09-20 16:00 | PC.SS ---
rounding note: Patient had I & D today. Possible BKA. Patient may need rehab upon discharge. SS will follow up with patient on discharge options. Patient's insurance requires prior auth. PT eval and wound care notes will be provided.
[2025-09-20] MEDS: INSULIN LISPRO (AdmeLOG) 1 UNIT/0.01 ML UNIT 3 UNIT SC (17:38)
[2025-09-20] MEDS: oxyCODONE HCL 5 MG IR TAB 10 MG PO ×2 (17:38→23:16)
[2025-09-20] MEDS: ACETAMINOPHEN IVPB 1,000 MG/100 ML VIAL 250 MG IV ×2 (17:38→23:16)
[2025-09-20] MEDS: INSULIN LISPRO (AdmeLOG) 1 UNIT/0.01 ML UNIT SC (20:02)
[2025-09-20] MEDS: INSULIN DEGLUDEC 5 UNIT/0.05 ML (PER 5 UNITS) 15 UNIT SC (20:03)
[2025-09-20] MEDS: HYDROmorphone INJ 2 MG/ML VIAL 1.5 MG IVP (20:04)
[2025-09-21] VITALS (10 sets, daily range): BP systolic 101–130; BP diastolic 56–82; PULSE 73–103; RESP 16–97; TEMP 36.1–37.3; O2SAT 97
[2025-09-21] MEDS: HYDROmorphone INJ 2 MG/ML VIAL 1.5 MG IVP ×5 (02:39→22:09)
[2025-09-21] MEDS: CLINDAMYCIN/NS 600 MG IVPB 600 MG/50 ML BAG 100 MG IV ×3 (05:07→22:10)
[2025-09-21] MEDS: ACETAMINOPHEN IVPB 1,000 MG/100 ML VIAL 250 MG IV ×2 (05:08→10:29)
[2025-09-21] MEDS: PIPER/TAZO 3.375 GM PREMIX 3.375 GM/50 ML BAG IV ×4 (05:09→23:53)
[2025-09-21 05:37] LABS: Basophils # (Auto) 0.1 Thou/mm3 (0.0-0.2); Basophils % (Auto) 0 % (0-2.5); Eosinophils # (Auto) 0.1 Thou/mm3 (0.0-0.5); Eosinophils % (Auto) 1 % (0-10); Hematocrit 27.8 % (41.0-53.0); Hemoglobin 9.1 g/dL (13.5-16.0); Immature Granulocytes Auto 0.47 Thou/mm3 (0.00-0.00); Lymphocytes # (Auto) 1.4 Thou/mm3 (1.0-4.8); Lymphocytes % (Auto) 8 % (10-50); Mean Corpuscular HGB Conc 32.7 g/dl (31.0-37.0); Mean Corpuscular Hemoglobin 29.4 pg (25.0-35.0); Mean Corpuscular Volume 90 fL (80-100); Monocytes # (Auto) 1.6 Thou/mm3 (0.0-0.8); Monocytes % (Auto) 9 % (0-12); Neutrophils # (Auto) 13.7 Thou/mm3 (1.8-7.7); Neutrophils % (Auto) 79 % (37-80); Nucleated Red Blood Cell # 0.00 Thou/mm3 (0.00-0.00); Nucleated Red Blood Cell % 0 /100 WBC (0); Platelet Count 622 Thou/mm3 (140-440); RDW Standard Deviation 47.4 fL (35.1-43.9); Red Blood Count 3.10 Miln/mm3 (4.50-5.90); White Blood Count 17.4 Thou/mm3 (3.8-10.6)
[2025-09-21] MEDS: oxyCODONE HCL 5 MG IR TAB 10 MG PO ×3 (05:54→23:53)
[2025-09-21] MEDS: VANCOMYCIN/NS 750 MG IVPB 750 MG/150 ML BAG 120 MG IV ×3 (05:54→22:10)
[2025-09-21] MEDS: GABAPENTIN 100 MG CAPSULE 200 MG PO ×3 (05:54→22:10)
[2025-09-21 06:00] LABS: Alanine Aminotransferase 22 U/L (10-49); Albumin, Serum 3.0 gm/dL (3.5-5.0); Albumin/Globulin Ratio 0.8 (1.2-2.2); Alkaline Phosphatase 185 U/L (46-116); Anion Gap 6 (7-16); Aspartate Amino Transferase 41 U/L (0-34); BUN/Creatinine Ratio 11 Ratio (12-20); Bilirubin,Total 1.3 mg/dL (0.3-1.2); Blood Urea Nitrogen 9 mg/dL (9-23); Calcium 7.8 mg/dL (8.3-10.6); Calcium (Corrected) 8.6 mg/dL (8.5-10.1); Carbon Dioxide 29.4 mMol/L (20.0-31.0); Chloride 98 mMol/L (98-107); Creatinine (Component) 0.8 mg/dL (0.6-1.3); Estimated Creatinine Clearance 102.1 mL/min (>60); Globulin 3.7 gm/dL (2.3-3.5); Glucose 191 mg/dL (74-106); Magnesium 2.1 mg/dL (1.6-2.6); Osmolality,Calculated 270 (275-295); Phosphorous 3.5 mg/dL (2.4-5.1); Potassium 4.0 mMol/L (3.4-5.1); Sodium 133 mMol/L (136-145); Total Protein 6.7 gm/dL (5.7-8.2); eGFR > 60 See Note
--- NOTE | 2025-09-21 07:33 | ESPR_ITS ---
<Statement entered by Cheryle Willoughby MD - 10/02/25 08:30> I reviewed above note and agree with findings and plans. I have also personally examined the patient with medicine team and went over assessment and plan with medical team including industrial engineering intern and resident physician. Documentation for date of: 09/21/25 Subjective Subjective Interval history: patient seen and examined at bedside he reports that he is no longer in excrutiating pain and that the oxy codone is helping him pt wants to take a shower Exam Vital Signs Temp Pulse Resp BP Pulse Ox O2 Del Method O2 Flow Rate 97 F 80 16 101/59 L 97 Room Air 3 09/21/25 04:00 09/21/25 04:27 09/21/25 04:27 09/21/25 04:00 09/21/25 04:00 09/21/25 04:00 09/21/25 04:00 Narrative Exam GENERAL: no acute distress, AAO x3, comfortably laying in bed, anxious appearing HEENT: Head AT/ NC. Mucous membranes moist. PERRL. NECK: Supple, no lymphadenopathy, no carotid bruits. CARDIOVASCULAR: RRR. Normal S1/S2, No m/r/g. No pitting edema of bilateral LEs. RESPIRATORY: CTAB. No wheezing, rhonchi, crackles. intermittent cough GASTROINTESTINAL: Abdomen soft, non tender no palpable masses. Bowel sounds present MUSCULOSKELETAL:?R foot post op from wash out. foot is bandaged, wounds not visualzed. NEUROLOGICAL: CN II-XII grossly intact. No focal deficits. Sensation intact, symmetric. PSYCHIATRIC: Awake and alert, not agitated, normal mood and affect. SKIN: No obvious rashes, no jaundice, normal turgor. Objective Labs 09/21/25 04:20 09/21/25 04:20 Labs: Laboratory Results - last 24 hr 09/21/25 04:20 WBC 17.4 H RBC 3.10 L Hgb 9.1 L Hct 27.8 L MCV 90 MCH 29.4 MCHC 32.7 RDW Std Deviation 47.4 H Plt Count 622 H D Neut % (Auto) 79 Lymph % (Auto) 8 L [place] % (Auto) 9 Eos % (Auto) 1 Baso % (Auto) 0 Neut # (Auto) 13.7 H Lymph # (Auto) 1.4 [place] # (Auto) 1.6 H Eos # (Auto) 0.1 Baso # (Auto) 0.1 Immature Gran # (Auto) 0.47 H Absolute Nucleated RBC 0.00 Immature Gran % 3 H Nucleated RBC % 0 Sodium 133 L Potassium 4.0 Chloride 98 Carbon Dioxide 29.4 Anion Gap 6 L BUN 9 Creatinine 0.8 Estim Creat Clear Calc 102.1 eGFR > 60 BUN/Creatinine Ratio 11 L Glucose 191 H Calculated Osmolality 270 L Calcium 7.8 L Corrected Calcium 8.6 Phosphorus 3.5 Magnesium 2.1 Total Bilirubin 1.3 H AST 41 H ALT 22 Alkaline Phosphatase 185 H Total Protein 6.7 Albumin 3.0 L Globulin 3.7 H Albumin/Globulin Ratio 0.8 L ABG Interpretation ABG results: 09/17/25 09:45 VBG pH 7.48 VBG pCO2 41 VBG pO2 46 VBG Base Excess 6 H Quality Measures Quality Measures VTE prophylaxis Assessment & Plan Assessment Current Active Medications: Generic Name Dose Route Start Last Admin Trade Name Freq PRN Reason Stop Dose Admin Acetaminophen 650 mg 09/17/25 15:09 Acetaminophen 325 Mg Tablet PO 10/17/25 15:08 Q6H PRN Fever >100.4 and mild pain Dextrose 25 ml 09/17/25 19:54 Dextrose 50%-Water Inj 50 Ml Syringe IV 10/17/25 19:53 Q15MIN PRN BG 50-70 responsive npo pt Dextrose 50 ml 09/17/25 19:54 Dextrose 50%-Water Inj 50 Ml Syringe IV 10/17/25 19:53 Q15MIN PRN BG <50 OR BG <70 & pt unresponsive Gabapentin 200 mg 09/18/25 14:00 09/21/25 05:54 Gabapentin 100 Mg Capsule PO 10/18/25 13:59 200 mg TID WALTER Administration Glucagon 1 mg 09/17/25 19:54 Glucagon Inj 1 Mg Vial IM Q15MIN PRN BG <70, and no IV access Hydromorphone HCl 1.5 mg 09/20/25 16:19 09/21/25 02:39 Hydromorphone Inj 2 Mg/Ml Vial IVP 09/22/25 15:08 1.5 mg Q4HR PRN Administration severe pain Pain 9-10 Clindamycin/Sodium Chloride 600 mg in 50 mls @ 100 mls/hr 09/17/25 17:33 09/21/25 05:07 Cleocin/Ns Ivpb IV 09/24/25 17:32 100 mls/hr Q8HR WALTER Administration Piperacillin/Tazobactam/Dextrose 3.375 gm in 50 mls @ 100 mls/hr 09/17/25 18:00 09/21/25 05:09 Zosyn IV 09/24/25 17:59 100 mls/hr Q6HR WALTER Administration Protocol Vancomycin/Sodium Chloride 750 mg in 150 mls @ 120 mls/hr 09/19/25 09:00 09/21/25 05:54 Vancomycin/Ns 750 Mg Ivpb IV 09/26/25 08:59 120 mls/hr Q8HR WALTER Administration Protocol Acetaminophen 1,000 mg in 100 mls @ 250 mls/hr 09/20/25 16:21 09/21/25 05:08 Ofirmev Inj IV 09/21/25 10:44 250 mls/hr Q6H WALTER Administration Insulin Degludec 15 unit 09/19/25 21:00 09/20/25 20:03 Insulin Degludec 5 Unit/0.05 Ml (Per 5 Units) SC 10/19/25 20:59 15 unit HS WALTER Administration Insulin Human Lispro 3 unit 09/19/25 11:30 09/20/25 17:38 Insulin Lispro (Admelog) 1 Unit/0.01 Ml Unit SC 10/19/25 11:29 3 unit AC WALTER Administration Insulin Human Lispro 0 unit 09/20/25 17:00 09/20/25 20:02 Insulin Lispro (Admelog) 1 Unit/0.01 Ml Unit SC 10/20/25 16:59 5 unit ACHS WALTER Administration Protocol Ondansetron HCl 4 mg 09/17/25 15:09 Ondansetron Inj 2 Mg/Ml Inj 2 Ml IVP 10/17/25 15:08 Q6H PRN NAUSEA OR VOMITING Protocol Oxycodone HCl 10 mg 09/20/25 18:00 09/21/25 05:54 Oxycodone Hcl 5 Mg Ir Tab PO 09/25/25 17:59 10 mg Q6HR WALTER Administration Pharmacy Consult 1 each 09/18/25 09:00 09/20/25 10:04 Vancomycin Pharmacy To Dose 1 Each Each IV 10/18/25 08:59 Not Given QDAY WALTER Plan Mr. Carrera is a 55 year old gentleman with a hx of T2DM- poorly controlled (a1c 10) with no active PCP managment who presented to the ed on 09/17 10 days after a fall from a ladder resulting in injury of his R foot and subsequent errythema and swelling, found to have R foot abscess concerning for nec fasc, s/p incision and drainage with Dr. Georges on 09/17, on IV broad spectrum antibiotics, with plan for likely subsequent incisions and drainages, and possible amputation. POD2, leukocytosis stable at 17, s/p second washout on 09/20. R foot abscess concerning for necrotizing fasciaitis s/p I and Dx2 elevated alk phos s/p I and D with Dr. Georges 09/17 pt presented 10 days after falling off of a ladder at work. he states that his foot got caught in the rung of the ladder and that he fell backwards and twisted and injured his ankle. he did not seek medical attention at that time. His pain and swelling worsened and he experienced chills which prompted him to present to the ED. suspect that R foot wound did not heal 2/2 poorly controlled DM and immuno compromised state and poor peripheral perfusion. leukocytosis is downtrending, lots of pus expressed during wound care on 09/19 s/p 2nd I and D with Dr Georges 09/20, wbc stable at [address]: Extensive soft tissue infection with gas-forming organisms involving all of the soft tissues of the foot BLE DVT US : negative for DVT wound cultures prelim with Strep Dysgalataie, Ucx NGTD blood cultures ngtd @48 hours Abx Vancomycin 1gm IV pharmacy to dose (09/17- Zosyn 3.375 gm IV q8hr (09/17- Clindamycin 600mg IV q8hr (09/17- Cefepime x1 in the ED Pain management APAP 650 mg PO PRN for fever and mild pain d/c NORCO 5-325 q4hr prn for moderate to severe pain oxycodone 10 mg q6hr prn for moderate to severe pain (helps with the minimizing having excrutiating pain) Dilaudid 1 mg IV q3hr prn for severe pain Gabapentin 200 mg TID- pt reports that it makes him very tired but with minimal relief of his foot pain consider dilaudid operator supply for better pain control Plan - surgery consulted, appreciate recs, s/p incision and drainage by Dr. Georges on 09/17, wounds left open to promote drainage. Copius pus found during surgery - NPO at midight pending 2nd washout with dr. georges on 09/20 could require multiple incisions, and will require wounds to remain open for adequate drainage. I also informed pt that depending on the extent of the infection and his recovery in the coming days he may go on to require amputation - CTM leukocytosis , CRP, ESR, - Consider repeat imaging, per surgery recommendations - Monitor for new or worsening errythema or crepitus and call director operations broadcast surgeon emergently given c/f spreading of nec fasc - incentive spirometry for pna ppx - wound care consulted, appreciate recs - Vit C 500mg BID - Zinc Sulfate 220mg qd for 14 days (09/22- 10/05 end date ) - multivitamin 15 ml QD T2DM- poorly controlled A1c 10.7 on admission. pt states that he was diagnosed with dm in 2014, by his pcp and was not initiated on any medication therapies at that time. he was lost to follow up and has not been seen by a PCP since that time. pt states that he initiated dietary changes with intent to control his dm. Plan Lispro 3 units TID with meals scheduled Degludec 15 units qhs (increased 7-->10-->15) ISS step 3 ACHS Bedside glucose checks Diet, carb consistent diabetes education dietitian consulted, appreciate recs Normocytic Anemia Hgb 10.2, chronic and likely decreased post operatively Plan CTM Mild hyponatremia mild hypochloremia hypophosphatemia Plan IVF with NS replete as indicated Dispo: med tele, s/p second washout of R foot abscess with strep dysgalactae on IV broad spectrum abx, Diet: carb consistent Bowel Reg: senna/docusate prn VTE ppx: hold heparin post surgery, ok for scd on unaffected leg. GI ppx: not indicated Code status: FULL Plan discussed with my attending Dr. Willoughby and my senior Dr. Patel Gordon MD PGY1
[2025-09-21] MEDS: INSULIN LISPRO (AdmeLOG) 1 UNIT/0.01 ML UNIT 3 UNIT SC ×2 (07:41→17:22)
--- NOTE | 2025-09-21 09:30 | PC.WOUND ---
Spoke with Dr. Ruffin, updated on I&D done yesterday with 2 additional wound sites. Orders received for wound vac with NS irrigation over the weekend with plan to re-evaluate at bedside Wednesday.
[2025-09-21] MEDS: INSULIN LISPRO (AdmeLOG) 1 UNIT/0.01 ML UNIT SC ×3 (11:00→20:07)
[2025-09-21] MEDS: HYDROmorphone INJ 2 MG/ML VIAL 1 MG IVP (12:04)
[2025-09-21 13:54] LABS: Vancomycin,Trough 14.6 mcg/mL (5.0-10.0)
[2025-09-21] MEDS: SODIUM CL IRRIG SOLN 1,000 ML BAG IRRIG (16:00)
[2025-09-21] MEDS: INSULIN DEGLUDEC 5 UNIT/0.05 ML (PER 5 UNITS) 15 UNIT SC (20:07)
[2025-09-21] MEDS: ASCORBIC ACID 250 MG TABLET 500 MG PO (20:08)
[2025-09-22] VITALS (11 sets, daily range): BP systolic 108–129; BP diastolic 64–78; PULSE 72–95; RESP 16–97; TEMP 36.1–37.2; O2SAT 92–98
[2025-09-22] MEDS: HYDROmorphone INJ 2 MG/ML VIAL 1.5 MG IVP ×6 (01:11→20:07)
[2025-09-22] MEDS: GABAPENTIN 100 MG CAPSULE 200 MG PO ×3 (05:06→22:03)
[2025-09-22] MEDS: CLINDAMYCIN/NS 600 MG IVPB 600 MG/50 ML BAG 100 MG IV ×3 (05:07→21:14)
[2025-09-22] MEDS: PIPER/TAZO 3.375 GM PREMIX 3.375 GM/50 ML BAG IV ×4 (05:07→23:55)
[2025-09-22] MEDS: oxyCODONE HCL 5 MG IR TAB 10 MG PO ×3 (05:07→23:54)
[2025-09-22 06:04] LABS: Basophils # (Auto) 0.1 Thou/mm3 (0.0-0.2); Basophils % (Auto) 1 % (0-2.5); Eosinophils # (Auto) 0.2 Thou/mm3 (0.0-0.5); Eosinophils % (Auto) 1 % (0-10); Hematocrit 28.8 % (41.0-53.0); Hemoglobin 9.3 g/dL (13.5-16.0); Immature Granulocytes Auto 0.58 Thou/mm3 (0.00-0.00); Lymphocytes # (Auto) 2.0 Thou/mm3 (1.0-4.8); Lymphocytes % (Auto) 11 % (10-50); Mean Corpuscular HGB Conc 32.3 g/dl (31.0-37.0); Mean Corpuscular Hemoglobin 28.9 pg (25.0-35.0); Mean Corpuscular Volume 89 fL (80-100); Monocytes # (Auto) 1.6 Thou/mm3 (0.0-0.8); Monocytes % (Auto) 9 % (0-12); Neutrophils # (Auto) 13.9 Thou/mm3 (1.8-7.7); Neutrophils % (Auto) 76 % (37-80); Nucleated Red Blood Cell # 0.00 Thou/mm3 (0.00-0.00); Nucleated Red Blood Cell % 0 /100 WBC (0); Platelet Count 826 Thou/mm3 (140-440); RDW Standard Deviation 47.0 fL (35.1-43.9); Red Blood Count 3.22 Miln/mm3 (4.50-5.90); White Blood Count 18.3 Thou/mm3 (3.8-10.6)
[2025-09-22] MEDS: VANCOMYCIN/NS 750 MG IVPB 750 MG/150 ML BAG 120 MG IV ×3 (06:07→22:38)
[2025-09-22 06:24] LABS: Alanine Aminotransferase 18 U/L (10-49); Albumin, Serum 3.2 gm/dL (3.5-5.0); Albumin/Globulin Ratio 0.7 (1.2-2.2); Alkaline Phosphatase 181 U/L (46-116); Anion Gap 8 (7-16); Aspartate Amino Transferase 28 U/L (0-34); BUN/Creatinine Ratio 10 Ratio (12-20); Bilirubin,Total 0.9 mg/dL (0.3-1.2); Blood Urea Nitrogen 8 mg/dL (9-23); Calcium 8.1 mg/dL (8.3-10.6); Calcium (Corrected) 8.7 mg/dL (8.5-10.1); Carbon Dioxide 29.0 mMol/L (20.0-31.0); Chloride 95 mMol/L (98-107); Creatinine (Component) 0.8 mg/dL (0.6-1.3); Estimated Creatinine Clearance 102.1 mL/min (>60); Globulin 4.5 gm/dL (2.3-3.5); Glucose 134 mg/dL (74-106); Magnesium 2.0 mg/dL (1.6-2.6); Osmolality,Calculated 264 (275-295); Phosphorous 3.4 mg/dL (2.4-5.1); Potassium 4.3 mMol/L (3.4-5.1); Sodium 132 mMol/L (136-145); Total Protein 7.7 gm/dL (5.7-8.2); eGFR > 60 See Note
[2025-09-22 06:59] LABS: Path Review Blood Smear Sent to Pathologist
[2025-09-22] MEDS: INSULIN LISPRO (AdmeLOG) 1 UNIT/0.01 ML UNIT 3 UNIT SC ×2 (07:30→11:26)
[2025-09-22] MEDS: INSULIN LISPRO (AdmeLOG) 1 UNIT/0.01 ML UNIT SC ×3 (07:31→17:27)
--- NOTE | 2025-09-22 08:52 | ESPR_ITS ---
<Statement entered by Cheryle Willoughby MD - 10/02/25 08:31> I reviewed above note and agree with findings and plans. I have also personally examined the patient with medicine team and went over assessment and plan with medical team including [employer] internship and resident physician. <Statement entered by Mattie Sweeney MD - 09/22/25 15:30> Patient is seen at bedside, patient is tearful due to excruciating pain in his foot. Patient underwent to I&D so for and a wound VAC was placed last night. Wound culture grew Streptococcus dysgalactiae, will continue broad-spectrum IV antibiotics with Vanco Comycin, Zosyn and clindamycin. Will readjust pain medication as well as sliding scale. Patient was seen and examined by me personally. I have directly supervised and reviewed documentation by the team resident and agree with its findings. ------- Plan of care was discussed with the attending, Dr. Case Sweeney, PGY-2 Documentation for date of: 09/22/25 Subjective Subjective Interval history: Patient seen and examined at bedside. pt endorses severe pain after oxy 10 wears off but that it does provide him relief for a few hours added oxy 5 as a prn, keep dilaudid for break through pain, keep gabapentin and iv apap, lfts wnl wound vac placed yesterday, with straw collred output. Exam Vital Signs Temp Pulse Resp BP Pulse Ox O2 Del Method O2 Flow Rate 97.3 F 87 18 117/66 96 Room Air 3 09/22/25 08:00 09/22/25 08:00 09/22/25 08:00 09/22/25 08:00 09/22/25 08:00 09/22/25 08:00 09/21/25 12:00 Narrative Exam GENERAL: no acute distress, AAO x3, comfortably laying in bed, anxious appearing HEENT: Head AT/ NC. Mucous membranes moist. PERRL. NECK: Supple, no lymphadenopathy, no carotid bruits. CARDIOVASCULAR: RRR. Normal S1/S2, No m/r/g. No pitting edema of bilateral LEs. RESPIRATORY: CTAB. No wheezing, rhonchi, crackles. GASTROINTESTINAL: Abdomen soft, non tender no palpable masses. Bowel sounds present MUSCULOSKELETAL:?R foot post op from wash out. foot has circumfrential wound vac in place with straw collored output (copius) NEUROLOGICAL: CN II-XII grossly intact. No focal deficits. Sensation intact, symmetric. PSYCHIATRIC: Awake and alert, not agitated, normal mood and affect. SKIN: No obvious rashes, no jaundice, normal turgor. Objective Labs 09/22/25 04:42 09/22/25 04:42 Labs: Laboratory Results - last 24 hr 09/21/25 09/22/25 13:10 04:42 WBC 18.3 H RBC 3.22 L Hgb 9.3 L Hct 28.8 L MCV 89 MCH 28.9 MCHC 32.3 RDW Std Deviation 47.0 H Plt Count 826 H D Neut % (Auto) 76 Lymph % (Auto) 11 [place] % (Auto) 9 Eos % (Auto) 1 Baso % (Auto) 1 Neut # (Auto) 13.9 H Lymph # (Auto) 2.0 [place] # (Auto) 1.6 H Eos # (Auto) 0.2 Baso # (Auto) 0.1 Immature Gran # (Auto) 0.58 H Absolute Nucleated RBC 0.00 Immature Gran % 3 H Nucleated RBC % 0 Smear Path Review Sent to Pathologist Sodium 132 L Potassium 4.3 Chloride 95 L Carbon Dioxide 29.0 Anion Gap 8 BUN 8 L Creatinine 0.8 Estim Creat Clear Calc 102.1 eGFR > 60 BUN/Creatinine Ratio 10 L Glucose 134 H D Calculated Osmolality 264 L Calcium 8.1 L Corrected Calcium 8.7 Phosphorus 3.4 Magnesium 2.0 Total Bilirubin 0.9 AST 28 ALT 18 Alkaline Phosphatase 181 H Total Protein 7.7 Albumin 3.2 L Globulin 4.5 H Albumin/Globulin Ratio 0.7 L Vancomycin Trough 14.6 H ABG Interpretation ABG results: 09/17/25 09:45 VBG pH 7.48 VBG pCO2 41 VBG pO2 46 VBG Base Excess 6 H Quality Measures Quality Measures VTE prophylaxis Assessment & Plan Assessment Current Active Medications: Generic Name Dose Route Start Last Admin Trade Name Freq PRN Reason Stop Dose Admin Acetaminophen 650 mg 09/17/25 15:09 Acetaminophen 325 Mg Tablet PO 10/17/25 15:08 Q6H PRN Fever >100.4 and mild pain Ascorbic Acid 500 mg 09/21/25 21:00 09/21/25 20:08 Ascorbic Acid 250 Mg Tablet PO 10/21/25 20:59 500 mg BID CELESTINE Administration Dextrose 25 ml 09/17/25 19:54 Dextrose 50%-Water Inj 50 Ml Syringe IV 10/17/25 19:53 Q15MIN PRN BG 50-70 responsive npo pt Dextrose 50 ml 09/17/25 19:54 Dextrose 50%-Water Inj 50 Ml Syringe IV 10/17/25 19:53 Q15MIN PRN BG <50 OR BG <70 & pt unresponsive Gabapentin 200 mg 09/18/25 14:00 09/22/25 05:06 Gabapentin 100 Mg Capsule PO 10/18/25 13:59 200 mg TID CELESTINE Administration Glucagon 1 mg 09/17/25 19:54 Glucagon Inj 1 Mg Vial IM Q15MIN PRN BG <70, and no IV access Hydromorphone HCl 1.5 mg 09/21/25 07:48 09/22/25 07:29 Hydromorphone Inj 2 Mg/Ml Vial IVP 09/25/25 16:18 1.5 mg Q3HR PRN Administration severe pain Pain 7-10 Hydromorphone HCl 1 mg 09/22/25 08:06 Hydromorphone Inj 2 Mg/Ml Vial IVP X1 PRN for R foot dressing change w wound care Clindamycin/Sodium Chloride 600 mg in 50 mls @ 100 mls/hr 09/17/25 17:33 09/22/25 05:07 Cleocin/Ns Ivpb IV 09/24/25 17:32 100 mls/hr Q8HR CELESTINE Administration Piperacillin/Tazobactam/Dextrose 3.375 gm in 50 mls @ 100 mls/hr 09/17/25 18:00 09/22/25 05:07 Zosyn IV 09/24/25 17:59 100 mls/hr Q6HR CELESTINE Administration Protocol Vancomycin/Sodium Chloride 750 mg in 150 mls @ 120 mls/hr 09/19/25 09:00 09/22/25 06:07 Vancomycin/Ns 750 Mg Ivpb IV 09/26/25 08:59 120 mls/hr Q8HR CELESTINE Administration Protocol Insulin Degludec 20 unit 09/22/25 21:00 Insulin Degludec 5 Unit/0.05 Ml (Per 5 Units) SC 10/22/25 20:59 HS [facility] Insulin Human Lispro 3 unit 09/19/25 11:30 09/22/25 07:30 Insulin Lispro (Admelog) 1 Unit/0.01 Ml Unit SC 10/19/25 11:29 3 unit AC CELESTINE Administration Insulin Human Lispro 0 unit 09/20/25 17:00 09/22/25 07:31 Insulin Lispro (Admelog) 1 Unit/0.01 Ml Unit SC 10/20/25 16:59 4 unit ACHS CELESTINE Administration Protocol Multivitamins/Minerals 15 ml 09/22/25 09:00 Multivitamin 15 Ml Udc PO 10/22/25 08:59 QDAY CELESTINE Ondansetron HCl 4 mg 09/17/25 15:09 Ondansetron Inj 2 Mg/Ml Inj 2 Ml IVP 10/17/25 15:08 Q6H PRN NAUSEA OR VOMITING Protocol Oxycodone HCl 10 mg 09/20/25 18:00 09/22/25 05:07 Oxycodone Hcl 5 Mg Ir Tab PO 09/25/25 17:59 10 mg Q6HR CELESTINE Administration Pantoprazole Sodium 40 mg 09/21/25 22:30 09/21/25 22:38 Pantoprazole Inj 40 Mg Vial IVP 10/21/25 22:29 40 mg QDAY CELESTINE Administration Pharmacy Consult 1 each 09/18/25 09:00 09/21/25 10:18 Vancomycin Pharmacy To Dose 1 Each Each IV 10/18/25 08:59 Not Given QDAY [facility] Sodium Chloride 0 ml 09/21/25 16:00 09/21/25 16:00 Sodium Cl Irrig Soln 1,000 Ml Bag IRRIG 10/21/25 15:59 1,000 ml QDAY [facility] Administration Zinc Sulfate 220 mg 09/22/25 09:00 Zinc Sulfate 220 Mg Capsule PO 10/05/25 08:59 QDAY CELESTINE Plan Mr. Carrera is a 55 year old gentleman with a hx of T2DM- poorly controlled (a1c 10) with no active PCP managment who presented to the ed on 09/17 10 days after a fall from a ladder resulting in injury of his R foot and subsequent errythema and swelling, found to have R foot abscess concerning for nec fasc, s/p incision and drainage with Dr. Georges on 09/17, on IV broad spectrum antibiotics, with plan for likely subsequent incisions and drainages, and possible amputation. POD2, leukocytosis stable at 17, s/p second washout on 09/20. R foot abscess concerning for necrotizing fasciaitis s/p I and Dx2 elevated alk phos s/p I and D with Dr. Georges 09/17 pt presented 10 days after falling off of a ladder at work. he states that his foot got caught in the rung of the ladder and that he fell backwards and twisted and injured his ankle. he did not seek medical attention at that time. His pain and swelling worsened and he experienced chills which prompted him to present to the ED. suspect that R foot wound did not heal 2/2 poorly controlled DM and immuno compromised state and poor peripheral perfusion. leukocytosis is downtrending, lots of pus expressed during wound care on 09/19 s/p 2nd I and D with Dr Georges 09/20, wbc stable at 17 09/21 with wound vac and straw collored copius output. Dx Foot CT: Extensive soft tissue infection with gas-forming organisms involving all of the soft tissues of the foot BLE DVT US : negative for DVT wound cultures prelim with Strep Dysgalataie, Ucx NGTD blood cultures ngtd @48 hours Abx Vancomycin 1gm IV pharmacy to dose (09/17- Zosyn 3.375 gm IV q8hr (09/17- Clindamycin 600mg IV q8hr (09/17- Cefepime x1 in the ED Pain management d/c NORCO 5-325 q4hr prn for moderate to severe pain APAP IV q6hr celestine oxycodone 10 mg q6hr celestine (helps with the minimizing having excrutiating pain, still having severe break through pain, was crying on 09/22) oxycodone 5 mg q4hr prn for moderate to severe pain. Dilaudid 1.5 mg IV q3hr prn for severe pain, Minimize use of short acting pain meds Gabapentin 200 mg TID- pt reports that it makes him very tired but with minimal relief of his foot pain Plan - surgery consulted, appreciate recs, s/p incision and drainage by Dr. Georges on 09/17 and 09/20 wounds left open to promote drainage. Copius pus found during surgery - NPO at midight pending 2nd washout with dr. georges on 09/20 could require multiple incisions, and will require wounds to remain open for adequate drainage. I also informed pt that depending on the extent of the infection and his recovery in the coming days he may go on to require amputation - CTM leukocytosis , CRP, ESR, - Consider repeat imaging, per surgery recommendations - Monitor for new or worsening errythema or crepitus and call beauty consultant surgeon emergently given c/f spreading of nec fasc - incentive spirometry for pna ppx - wound care consulted, appreciate recs - Vit C 500mg BID - Zinc Sulfate 220mg qd for 14 days (09/22- 10/05 end date ) - multivitamin 15 ml QD T2DM- poorly controlled A1c 10.7 on admission. pt states that he was diagnosed with dm in 2014, by his pcp and was not initiated on any medication therapies at that time. he was lost to follow up and has not been seen by a PCP since that time. pt states that he initiated dietary changes with intent to control his dm. Plan Lispro 5 units TID with meals scheduled (3-->5) Degludec 20 units qhs (increased 7-->10-->15-->20) ISS step 3 ACHS Bedside glucose checks Diet, carb consistent diabetes education dietitian consulted, appreciate recs Normocytic Anemia Hgb 10.2, chronic and likely decreased post operatively Plan CTM Mild hyponatremia mild hypochloremia hypophosphatemia Plan IVF with NS replete as indicated Dispo: med tele, s/p second washout of R foot abscess with strep dysgalactae on IV broad spectrum abx, and wound vac. Diet: carb consistent Bowel Reg: senna/docusate scheduled, given opioids given for pain VTE ppx: heparin GI ppx: not indicated Code status: FULL Plan discussed with my attending Dr. Willoughby and my senior Dr. Patel Gordon MD PGY1
[2025-09-22] MEDS: MULTIVITAMIN 15 ML UDC PO (09:51)
[2025-09-22] MEDS: ZINC SULFATE 220 MG CAPSULE PO (09:51)
[2025-09-22] MEDS: ASCORBIC ACID 250 MG TABLET 500 MG PO ×2 (09:51→20:52)
[2025-09-22] MEDS: ACETAMINOPHEN IVPB 1,000 MG/100 ML VIAL 250 MG IV ×2 (15:55→21:01)
[2025-09-22] MEDS: oxyCODONE HCL 5 MG IR TAB PO (17:26)
[2025-09-22] MEDS: INSULIN LISPRO (AdmeLOG) 1 UNIT/0.01 ML UNIT 5 UNIT SC (17:29)
[2025-09-22] MEDS: SENNA/DOCUSATE SOD 1 TAB TABLET PO (20:52)
[2025-09-22] MEDS: HEPARIN SOD INJ 5000 UNIT/ML VIAL SC (20:53)
[2025-09-22] MEDS: INSULIN DEGLUDEC 5 UNIT/0.05 ML (PER 5 UNITS) 20 UNIT SC (21:10)
[2025-09-22 22:27] LABS: Vancomycin,Trough 14.5 mcg/mL (5.0-10.0)
[2025-09-23] VITALS (7 sets, daily range): BP systolic 107–139; BP diastolic 62–87; PULSE 73–103; RESP 16–18; TEMP 36.3–37.2; O2SAT 94–97
[2025-09-23] MEDS: HYDROmorphone INJ 2 MG/ML VIAL 1.5 MG IVP ×7 (02:29→23:07)
[2025-09-23] MEDS: ACETAMINOPHEN IVPB 1,000 MG/100 ML VIAL 250 MG IV ×2 (03:10→07:32)
[2025-09-23] MEDS: SODIUM CL IRRIG SOLN 1,000 ML BAG IRRIG (03:14)
[2025-09-23 05:52] LABS: Basophils # (Auto) 0.1 Thou/mm3 (0.0-0.2); Basophils % (Auto) 0 % (0-2.5); Eosinophils # (Auto) 0.1 Thou/mm3 (0.0-0.5); Eosinophils % (Auto) 1 % (0-10); Hematocrit 24.4 % (41.0-53.0); Immature Granulocytes Auto 0.40 Thou/mm3 (0.00-0.00); Lymphocytes # (Auto) 1.5 Thou/mm3 (1.0-4.8); Lymphocytes % (Auto) 11 % (10-50); Mean Corpuscular HGB Conc 33.6 g/dl (31.0-37.0); Mean Corpuscular Hemoglobin 29.4 pg (25.0-35.0); Mean Corpuscular Volume 88 fL (80-100); Monocytes # (Auto) 1.0 Thou/mm3 (0.0-0.8); Monocytes % (Auto) 7 % (0-12); Neutrophils # (Auto) 10.8 Thou/mm3 (1.8-7.7); Neutrophils % (Auto) 78 % (37-80); Nucleated Red Blood Cell # 0.00 Thou/mm3 (0.00-0.00); Nucleated Red Blood Cell % 0 /100 WBC (0); Platelet Count 794 Thou/mm3 (140-440); RDW Standard Deviation 46.5 fL (35.1-43.9); Red Blood Count 2.79 Miln/mm3 (4.50-5.90); White Blood Count 13.9 Thou/mm3 (3.8-10.6)
[2025-09-23 05:55] LABS: Hemoglobin 8.2 g/dL (13.5-16.0)
[2025-09-23] MEDS: CLINDAMYCIN/NS 600 MG IVPB 600 MG/50 ML BAG 100 MG IV ×3 (05:59→22:17)
[2025-09-23] MEDS: oxyCODONE HCL 5 MG IR TAB 10 MG PO ×3 (06:03→18:34)
[2025-09-23] MEDS: VANCOMYCIN/NS 750 MG IVPB 750 MG/150 ML BAG 120 MG IV (06:05)
[2025-09-23] MEDS: GABAPENTIN 100 MG CAPSULE 200 MG PO ×3 (06:24→22:15)
[2025-09-23 06:38] LABS: Alanine Aminotransferase 16 U/L (10-49); Albumin, Serum 3.0 gm/dL (3.5-5.0); Albumin/Globulin Ratio 0.7 (1.2-2.2); Alkaline Phosphatase 153 U/L (46-116); Anion Gap 8 (7-16); Aspartate Amino Transferase 27 U/L (0-34); BUN/Creatinine Ratio 10 Ratio (12-20); Bilirubin,Total 0.7 mg/dL (0.3-1.2); Blood Urea Nitrogen 8 mg/dL (9-23); Calcium 7.8 mg/dL (8.3-10.6); Calcium (Corrected) 8.6 mg/dL (8.5-10.1); Carbon Dioxide 27.8 mMol/L (20.0-31.0); Chloride 96 mMol/L (98-107); Creatinine (Component) 0.8 mg/dL (0.6-1.3); Estimated Creatinine Clearance 102.1 mL/min (>60); Globulin 4.1 gm/dL (2.3-3.5); Glucose 306 mg/dL (74-106); Magnesium 1.9 mg/dL (1.6-2.6); Osmolality,Calculated 274 (275-295); Phosphorous 3.6 mg/dL (2.4-5.1); Potassium 4.1 mMol/L (3.4-5.1); Sodium 132 mMol/L (136-145); Total Protein 7.1 gm/dL (5.7-8.2); eGFR > 60 See Note
[2025-09-23] MEDS: PIPER/TAZO 3.375 GM PREMIX 3.375 GM/50 ML BAG IV ×3 (06:41→18:03)
[2025-09-23] MEDS: INSULIN LISPRO (AdmeLOG) 1 UNIT/0.01 ML UNIT SC ×3 (07:34→20:24)
[2025-09-23] MEDS: INSULIN LISPRO (AdmeLOG) 1 UNIT/0.01 ML UNIT 5 UNIT SC ×3 (07:35→17:03)
[2025-09-23] MEDS: MULTIVITAMIN 15 ML UDC PO (08:54)
[2025-09-23] MEDS: HEPARIN SOD INJ 5000 UNIT/ML VIAL SC ×2 (08:55→20:23)
[2025-09-23] MEDS: ASCORBIC ACID 250 MG TABLET 500 MG PO ×2 (08:55→20:17)
[2025-09-23] MEDS: ZINC SULFATE 220 MG CAPSULE PO (08:55)
--- NOTE | 2025-09-23 11:18 | ESPR_ITS ---
<Statement entered by Cheryle Willoughby MD - 10/02/25 08:33> I reviewed above note and agree with findings and plans. I have also personally examined the patient with medicine team and went over assessment and plan with medical team including university internship and resident physician. <Statement entered by Mattie Sweeney MD - 09/23/25 16:17> Pt is seen at bedside, continues to have severe pain in the right foot however reports the current pain regimen is working in controlling his pain. Wound vac is in place, currently there is no plans for repeat surgery. Will continue to monitor, leukocyte count has downtrended to 13.9. Will continue IV abx. Patient was seen and examined by me personally. I have directly supervised and reviewed documentation by the team resident and agree with its findings. ------- Plan of care was discussed with the attending, Dr. Case Sweeney, PGY-2 Documentation for date of: 09/23/25 Subjective Subjective Interval history: * Patient seen and examined at bedside. * Patient mentioned that his pain was well-controlled. * Abscess culture grew strep dysgalactiae. * Continuing antibiotics. Exam Vital Signs Temp Pulse Resp BP Pulse Ox O2 Del Method O2 Flow Rate 97.3 F 73 16 107/62 96 Room Air 3 09/23/25 08:00 09/23/25 08:00 09/23/25 08:00 09/23/25 08:00 09/23/25 08:00 09/23/25 08:00 09/21/25 12:00 Narrative Exam General: Awake and in no acute distress. Conversational and non-toxic appearing. Neurologic: GCS 15. Alert and oriented x3, no gross neurological deficit, and patient able to move all 4 extremities. HEENT: Normocephalic, atraumatic, mucous membranes moist. Pupils reactive to light. Heart: Regular rate and rhythm, normal S1 and S2, no murmurs. Lungs: Clear to auscultation bilaterally with no wheezing or crackles. Abdomen: Soft, nondistended, nontender, positive bowel sounds. No guarding or rebound tenderness. Extremities: Right foot has circumferential wound VAC, draining valladares-colored fluid. Surrounding erythema and edema. Skin: Warm. Dry. No rash or ecchymoses. Objective Labs 09/23/25 05:15 09/23/25 05:15 Labs: Laboratory Results - last 24 hr 09/22/25 09/23/25 20:57 05:15 WBC 13.9 H RBC 2.79 L Hgb 8.2 L Hct 24.4 L MCV 88 MCH 29.4 MCHC 33.6 RDW Std Deviation 46.5 H Plt Count 794 H D Neut % (Auto) 78 Lymph % (Auto) 11 [place] % (Auto) 7 Eos % (Auto) 1 Baso % (Auto) 0 Neut # (Auto) 10.8 H Lymph # (Auto) 1.5 [place] # (Auto) 1.0 H Eos # (Auto) 0.1 Baso # (Auto) 0.1 Immature Gran # (Auto) 0.40 H Absolute Nucleated RBC 0.00 Immature Gran % 3 H Nucleated RBC % 0 Sodium 132 L Potassium 4.1 Chloride 96 L Carbon Dioxide 27.8 Anion Gap 8 BUN 8 L Creatinine 0.8 Estim Creat Clear Calc 102.1 eGFR > 60 BUN/Creatinine Ratio 10 L Glucose 306 H D Calculated Osmolality 274 L Calcium 7.8 L Corrected Calcium 8.6 Phosphorus 3.6 Magnesium 1.9 Total Bilirubin 0.7 AST 27 ALT 16 Alkaline Phosphatase 153 H D Total Protein 7.1 Albumin 3.0 L Globulin 4.1 H Albumin/Globulin Ratio 0.7 L Vancomycin Trough 14.5 H ABG Interpretation ABG results: 09/17/25 09:45 VBG pH 7.48 VBG pCO2 41 VBG pO2 46 VBG Base Excess 6 H Quality Measures Quality Measures VTE prophylaxis Assessment & Plan Assessment Current Active Medications: Generic Name Dose Route Start Last Admin Trade Name Remi PRN Reason Stop Dose Admin Acetaminophen 650 mg 09/17/25 15:09 Acetaminophen 325 Mg Tablet PO 10/17/25 15:08 Q6H PRN Fever >100.4 and mild pain Ascorbic Acid 500 mg 09/21/25 21:00 09/23/25 08:55 Ascorbic Acid 250 Mg Tablet PO 10/21/25 20:59 500 mg BID CELESTINE Administration Dextrose 25 ml 09/17/25 19:54 Dextrose 50%-Water Inj 50 Ml Syringe IV 10/17/25 19:53 Q15MIN PRN BG 50-70 responsive npo pt Dextrose 50 ml 09/17/25 19:54 Dextrose 50%-Water Inj 50 Ml Syringe IV 10/17/25 19:53 Q15MIN PRN BG <50 OR BG <70 & pt unresponsive Gabapentin 200 mg 09/18/25 14:00 09/23/25 06:24 Gabapentin 100 Mg Capsule PO 10/18/25 13:59 200 mg TID CELESTINE Administration Glucagon 1 mg 09/17/25 19:54 Glucagon Inj 1 Mg Vial IM Q15MIN PRN BG <70, and no IV access Heparin Sodium (Porcine) 5,000 unit 09/22/25 21:00 09/23/25 08:55 Heparin Sod Inj 5000 Unit/Ml Vial SC 10/06/25 20:59 5,000 unit Q12HR CELESTINE Administration Hydromorphone HCl 1.5 mg 09/21/25 07:48 09/23/25 10:07 Hydromorphone Inj 2 Mg/Ml Vial IVP 09/25/25 16:18 1.5 mg Q3HR PRN Administration severe pain Pain 7-10 Hydromorphone HCl 1 mg 09/22/25 08:06 Hydromorphone Inj 2 Mg/Ml Vial IVP X1 PRN for R foot dressing change w wound care Clindamycin/Sodium Chloride 600 mg in 50 mls @ 100 mls/hr 09/17/25 17:33 09/23/25 05:59 Cleocin/Ns Ivpb IV 09/24/25 17:32 100 mls/hr Q8HR CELESTINE Administration Piperacillin/Tazobactam/Dextrose 3.375 gm in 50 mls @ 100 mls/hr 09/17/25 18:00 09/23/25 06:41 Zosyn IV 09/24/25 17:59 100 mls/hr Q6HR CELESTINE Administration Protocol Vancomycin HCl 200 mls @ 120 mls/hr 09/23/25 14:00 Vancomycin/Water 1gm Ivpb IV 09/30/25 13:59 Q8HR [facility] Protocol Insulin Degludec 20 unit 09/22/25 21:00 09/22/25 21:10 Insulin Degludec 5 Unit/0.05 Ml (Per 5 Units) SC 10/22/25 20:59 20 unit HS CELESTINE Administration Insulin Human Lispro 0 unit 09/20/25 17:00 09/23/25 11:11 Insulin Lispro (Admelog) 1 Unit/0.01 Ml Unit SC 10/20/25 16:59 Not Given ACHS CELESTINE Protocol Insulin Human Lispro 5 unit 09/22/25 17:00 09/23/25 07:35 Insulin Lispro (Admelog) 1 Unit/0.01 Ml Unit SC 10/22/25 16:59 5 unit AC CELESTINE Administration Multivitamins/Minerals 15 ml 09/22/25 09:00 09/23/25 08:54 Multivitamin 15 Ml Udc PO 10/22/25 08:59 15 ml QDAY CELESTINE Administration Ondansetron HCl 4 mg 09/17/25 15:09 Ondansetron Inj 2 Mg/Ml Inj 2 Ml IVP 10/17/25 15:08 Q6H PRN NAUSEA OR VOMITING Protocol Oxycodone HCl 10 mg 09/20/25 18:00 09/23/25 06:03 Oxycodone Hcl 5 Mg Ir Tab PO 09/25/25 17:59 10 mg Q6HR CELESTINE Administration Oxycodone HCl 5 mg 09/22/25 14:13 09/22/25 17:26 Oxycodone Hcl 5 Mg Ir Tab PO 09/27/25 14:12 5 mg Q4HR PRN Administration PAIN SCALE 4-10(Mod-Sev Pantoprazole Sodium 40 mg 09/21/25 22:30 09/23/25 08:54 Pantoprazole Inj 40 Mg Vial IVP 10/21/25 22:29 40 mg QDAY CELESTINE Administration Pharmacy Consult 1 each 09/18/25 09:00 09/23/25 10:09 Vancomycin Pharmacy To Dose 1 Each Each IV 10/18/25 08:59 Not Given QDAY CELESTINE Sennosides 1 tab 09/22/25 21:00 09/22/25 20:52 Senna/Docusate Sod 1 Tab Tablet PO 10/22/25 20:59 1 tab HS CELESTINE Administration Protocol Sodium Chloride 0 ml 09/21/25 16:00 09/23/25 08:56 Sodium Cl Irrig Soln 1,000 Ml Bag IRRIG 10/21/25 15:59 Not Given QDAY CELESTINE Zinc Sulfate 220 mg 09/22/25 09:00 09/23/25 08:55 Zinc Sulfate 220 Mg Capsule PO 10/05/25 08:59 220 mg QDAY CELESTINE Administration Plan Mr. Carrera is a 55 year old gentleman with a hx of T2DM- poorly controlled (a1c 10) with no active PCP managment who presented to the ed on 09/17 10 days after a fall from a ladder resulting in injury of his R foot and subsequent errythema and swelling, found to have R foot abscess concerning for nec fasc, s/p incision and drainage with Dr. Georges on 09/17, on IV broad spectrum antibiotics, with plan for likely subsequent incisions and drainages, and possible amputation. POD2, leukocytosis stable at 17, s/p second washout on 09/20. R foot abscess concerning for necrotizing fasciaitis s/p I and Dx2 elevated alk phos s/p I and D with Dr. Georges 09/17 pt presented 10 days after falling off of a ladder at work. he states that his foot got caught in the rung of the ladder and that he fell backwards and twisted and injured his ankle. he did not seek medical attention at that time. His pain and swelling worsened and he experienced chills which prompted him to present to the ED. suspect that R foot wound did not heal 2/2 poorly controlled DM and immuno compromised state and poor peripheral perfusion. leukocytosis is downtrending, lots of pus expressed during wound care on 09/19 s/p 2nd I and D with Dr Georges 09/20, wbc stable at 17 09/21 with wound vac and straw collored copius output. 09/23: Patient continues to have straw-colored/valladares-colored output from wound VAC. Surrounding erythema and edema. Pain is well-controlled Dx Foot CT: Extensive soft tissue infection with gas-forming organisms involving all of the soft tissues of the foot BLE DVT US : negative for DVT wound cultures prelim with Strep Dysgalataie, Ucx NGTD blood cultures ngtd @48 hours Abx Vancomycin 1gm IV pharmacy to dose (09/17- Zosyn 3.375 gm IV q8hr (09/17- Clindamycin 600mg IV q8hr (09/17- Cefepime x1 in the ED Pain management d/c NORCO 5-325 q4hr prn for moderate to severe pain APAP IV q6hr celestine oxycodone 10 mg q6hr celestine (helps with the minimizing having excrutiating pain, still having severe break through pain, was crying on 09/22) oxycodone 5 mg q4hr prn for moderate to severe pain. Dilaudid 1.5 mg IV q3hr prn for severe pain, Minimize use of short acting pain meds Gabapentin 200 mg TID- pt reports that it makes him very tired but with minimal relief of his foot pain Plan - surgery consulted, appreciate recs, s/p incision and drainage by Dr. Georges on 09/17 and 09/20 wounds left open to promote drainage. Copius pus found during surgery - NPO at midight pending 2nd washout with dr. georges on 09/20 could require multiple incisions, and will require wounds to remain open for adequate drainage. 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 pt states that he was diagnosed with dm in 2014, by his pcp and was not initiated on any medication therapies at that time. he was lost to follow up and has not been seen by a PCP since that time. pt states that he initiated dietary changes with intent to control his dm. Plan Lispro 5 units TID with meals scheduled (3-->5) Degludec 20 units qhs (increased 7-->10-->15-->20) ISS step 3 ACHS Bedside glucose checks Diet, carb consistent diabetes education dietitian consulted, appreciate recs Normocytic Anemia Hgb 10.2, chronic and likely decreased post operatively Hemoglobin has been downtrending Plan CTM Mild hyponatremia mild hypochloremia hypophosphatemia Plan IVF with NS replete as indicated Dispo: med tele, s/p second washout of R foot abscess with strep dysgalactae on IV broad spectrum abx, and wound vac. WBC trending down. Diet: carb consistent Bowel Reg: senna/docusate scheduled, given opioids given for pain VTE ppx: heparin GI ppx: not indicated Code status: FULL Patient was seen and discussed with my attending physician Dr. Case HOLMAN and my senior resident Dr. Patel HOLMAN PGY-2. Moe Celaya DO PGY-1.
[2025-09-23] MEDS: VANCOMYCIN/WATER 1GM IVPB 200 ML IV ×2 (13:46→22:16)
[2025-09-23] MEDS: oxyCODONE HCL 5 MG IR TAB PO (15:48)
--- NOTE | 2025-09-23 16:48 | PC.SS ---
Discharge round: On IV abx, IV pain, pending surgery recs, possible BKA.
[2025-09-23] MEDS: SENNA/DOCUSATE SOD 1 TAB TABLET PO (20:17)
[2025-09-23] MEDS: INSULIN DEGLUDEC 5 UNIT/0.05 ML (PER 5 UNITS) 20 UNIT SC (20:23)
[2025-09-23 22:04] LABS: Vancomycin,Trough 17.4 mcg/mL (5.0-10.0)
[2025-09-24] VITALS (9 sets, daily range): BP systolic 95–151; BP diastolic 58–84; PULSE 79–103; RESP 18; TEMP 36.1–37.5; O2SAT 94–97; BMI 25.9
[2025-09-24] MEDS: PIPER/TAZO 3.375 GM PREMIX 3.375 GM/50 ML BAG IV ×3 (00:29→11:13)
[2025-09-24] MEDS: oxyCODONE HCL 5 MG IR TAB 10 MG PO ×5 (00:30→23:45)
[2025-09-24] MEDS: HYDROmorphone INJ 2 MG/ML VIAL 1.5 MG IVP ×3 (02:14→08:37)
[2025-09-24] MEDS: CLINDAMYCIN/NS 600 MG IVPB 600 MG/50 ML BAG 100 MG IV ×2 (05:31→13:39)
[2025-09-24] MEDS: GABAPENTIN 100 MG CAPSULE 200 MG PO ×3 (05:34→21:42)
[2025-09-24 05:54] LABS: Basophils # (Auto) 0.1 Thou/mm3 (0.0-0.2); Basophils % (Auto) 0 % (0-2.5); Eosinophils # (Auto) 0.1 Thou/mm3 (0.0-0.5); Eosinophils % (Auto) 1 % (0-10); Hematocrit 22.9 % (41.0-53.0); Immature Granulocytes Auto 0.26 Thou/mm3 (0.00-0.00); Lymphocytes # (Auto) 1.9 Thou/mm3 (1.0-4.8); Lymphocytes % (Auto) 15 % (10-50); Mean Corpuscular HGB Conc 33.6 g/dl (31.0-37.0); Mean Corpuscular Hemoglobin 29.7 pg (25.0-35.0); Mean Corpuscular Volume 88 fL (80-100); Monocytes # (Auto) 1.1 Thou/mm3 (0.0-0.8); Monocytes % (Auto) 9 % (0-12); Neutrophils # (Auto) 9.4 Thou/mm3 (1.8-7.7); Neutrophils % (Auto) 73 % (37-80); Nucleated Red Blood Cell # 0.00 Thou/mm3 (0.00-0.00); Nucleated Red Blood Cell % 0 /100 WBC (0); Platelet Count 709 Thou/mm3 (140-440); RDW Standard Deviation 46.4 fL (35.1-43.9); Red Blood Count 2.59 Miln/mm3 (4.50-5.90); White Blood Count 12.8 Thou/mm3 (3.8-10.6)
[2025-09-24 06:01] LABS: Hemoglobin 7.7 g/dL (13.5-16.0)
[2025-09-24] MEDS: VANCOMYCIN/WATER 1GM IVPB 200 ML IV ×3 (06:02→21:48)
[2025-09-24 06:09] LABS: Alanine Aminotransferase 15 U/L (10-49); Albumin, Serum 2.9 gm/dL (3.5-5.0); Albumin/Globulin Ratio 0.7 (1.2-2.2); Alkaline Phosphatase 169 U/L (46-116); Anion Gap 7 (7-16); Aspartate Amino Transferase 26 U/L (0-34); BUN/Creatinine Ratio 9 Ratio (12-20); Bilirubin,Total 0.5 mg/dL (0.3-1.2); Blood Urea Nitrogen 8 mg/dL (9-23); Calcium 7.9 mg/dL (8.3-10.6); Calcium (Corrected) 8.8 mg/dL (8.5-10.1); Carbon Dioxide 29.8 mMol/L (20.0-31.0); Chloride 96 mMol/L (98-107); Creatinine (Component) 0.9 mg/dL (0.6-1.3); Estimated Creatinine Clearance 90.8 mL/min (>60); Globulin 4.3 gm/dL (2.3-3.5); Glucose 247 mg/dL (74-106); Osmolality,Calculated 272 (275-295); Potassium 4.0 mMol/L (3.4-5.1); Sodium 133 mMol/L (136-145); Total Protein 7.2 gm/dL (5.7-8.2); eGFR > 60 See Note
[2025-09-24] MEDS: INSULIN LISPRO (AdmeLOG) 1 UNIT/0.01 ML UNIT SC ×2 (07:38→17:22)
[2025-09-24] MEDS: INSULIN LISPRO (AdmeLOG) 1 UNIT/0.01 ML UNIT 5 UNIT SC ×3 (07:39→17:21)
--- NOTE | 2025-09-24 08:21 | ESPR_ITS ---
<Statement entered by Cheryle Willoughby MD - 10/02/25 08:39> I reviewed above note and agree with findings and plans. I have also personally examined the patient with medicine team and went over assessment and plan with medical team including learning and development intern and resident physician. <Statement entered by Mattie Sweeney MD - 09/25/25 15:18> Pt is seen at bedside, wound vac continues to drain. Pt complains of pain in his right foot. Per surgery will plan for another I&D tomorrow and then further decide if pt will need a BKA. Patient was seen and examined by me personally. I have directly supervised and reviewed documentation by the team resident and agree with its findings. ------- Plan of care was discussed with the attending, Dr. Case Sweeney, PGY-2 Documentation for date of: 09/24/25 Subjective Subjective Interval history: * Patient seen and examined at bedside. * Right lower extremity continues to drain whitehead-colored fluid. * Surgery plans to operate 09/25/2025, third debridement and considering BKA. * Will DC IV Dilaudid. Exam Vital Signs Temp Pulse Resp BP Pulse Ox O2 Del Method O2 Flow Rate 97.0 F 86 18 111/66 96 Room Air 3 09/24/25 04:00 09/24/25 04:00 09/24/25 04:00 09/24/25 04:00 09/24/25 04:00 09/24/25 04:00 09/21/25 12:00 Narrative Exam General: Awake and in no acute distress. Conversational and non-toxic appearing. Neurologic: GCS 15. Alert and oriented x3, no gross neurological deficit, and patient able to move all 4 extremities. HEENT: Normocephalic, atraumatic, mucous membranes moist. Pupils reactive to light. Heart: Regular rate and rhythm, normal S1 and S2, no murmurs. Lungs: Clear to auscultation bilaterally with no wheezing or crackles. Abdomen: Soft, nondistended, nontender, positive bowel sounds. No guarding or rebound tenderness. Extremities: Right foot has circumferential wound VAC, draining whitehead-colored fluid. Surrounding erythema and edema. Skin: Warm. Dry. No rash or ecchymoses. Objective Labs 09/24/25 05:23 09/24/25 05:23 Labs: Laboratory Results - last 24 hr 09/23/25 09/24/25 20:54 05:23 WBC 12.8 H RBC 2.59 L Hgb 7.7 L Hct 22.9 L MCV 88 MCH 29.7 MCHC 33.6 RDW Std Deviation 46.4 H Plt Count 709 H D Neut % (Auto) 73 Lymph % (Auto) 15 [place] % (Auto) 9 Eos % (Auto) 1 Baso % (Auto) 0 Neut # (Auto) 9.4 H Lymph # (Auto) 1.9 [place] # (Auto) 1.1 H Eos # (Auto) 0.1 Baso # (Auto) 0.1 Immature Gran # (Auto) 0.26 H Absolute Nucleated RBC 0.00 Immature Gran % 2 H Nucleated RBC % 0 Sodium 133 L Potassium 4.0 Chloride 96 L Carbon Dioxide 29.8 Anion Gap 7 BUN 8 L Creatinine 0.9 Estim Creat Clear Calc 90.8 eGFR > 60 BUN/Creatinine Ratio 9 L Glucose 247 H D Calculated Osmolality 272 L Calcium 7.9 L Corrected Calcium 8.8 Total Bilirubin 0.5 AST 26 ALT 15 Alkaline Phosphatase 169 H Total Protein 7.2 Albumin 2.9 L Globulin 4.3 H Albumin/Globulin Ratio 0.7 L Vancomycin Trough 17.4 H ABG Interpretation ABG results: 09/17/25 09:45 VBG pH 7.48 VBG pCO2 41 VBG pO2 46 VBG Base Excess 6 H Quality Measures Quality Measures VTE prophylaxis Assessment & Plan Assessment Current Active Medications: Generic Name Dose Route Start Last Admin Trade Name Devinq PRN Reason Stop Dose Admin Acetaminophen 650 mg 09/17/25 15:09 Acetaminophen 325 Mg Tablet PO 10/17/25 15:08 Q6H PRN Fever >100.4 and mild pain Ascorbic Acid 500 mg 09/21/25 21:00 09/23/25 20:17 Ascorbic Acid 250 Mg Tablet PO 10/21/25 20:59 500 mg BID CELESTINE Administration Dextrose 25 ml 09/17/25 19:54 Dextrose 50%-Water Inj 50 Ml Syringe IV 10/17/25 19:53 Q15MIN PRN BG 50-70 responsive npo pt Dextrose 50 ml 09/17/25 19:54 Dextrose 50%-Water Inj 50 Ml Syringe IV 10/17/25 19:53 Q15MIN PRN BG <50 OR BG <70 & pt unresponsive Gabapentin 200 mg 09/18/25 14:00 09/24/25 05:34 Gabapentin 100 Mg Capsule PO 10/18/25 13:59 200 mg TID CELESTINE Administration Glucagon 1 mg 09/17/25 19:54 Glucagon Inj 1 Mg Vial IM Q15MIN PRN BG <70, and no IV access Heparin Sodium (Porcine) 5,000 unit 09/22/25 21:00 09/23/25 20:23 Heparin Sod Inj 5000 Unit/Ml Vial SC 10/06/25 20:59 5,000 unit Q12HR CELESTINE Administration Hydromorphone HCl 1.5 mg 09/21/25 07:48 09/24/25 05:29 Hydromorphone Inj 2 Mg/Ml Vial IVP 09/25/25 16:18 1.5 mg Q3HR PRN Administration severe pain Pain 7-10 Hydromorphone HCl 1 mg 09/22/25 08:06 Hydromorphone Inj 2 Mg/Ml Vial IVP X1 PRN for R foot dressing change w wound care Clindamycin/Sodium Chloride 600 mg in 50 mls @ 100 mls/hr 09/17/25 17:33 09/24/25 05:31 Cleocin/Ns Ivpb IV 09/24/25 17:32 100 mls/hr Q8HR CELESTINE Administration Piperacillin/Tazobactam/Dextrose 3.375 gm in 50 mls @ 100 mls/hr 09/17/25 18:00 09/24/25 05:31 Zosyn IV 09/24/25 17:59 100 mls/hr Q6HR CELESTINE Administration Protocol Vancomycin HCl 200 mls @ 120 mls/hr 09/23/25 14:00 09/24/25 06:02 Vancomycin/Water 1gm Ivpb IV 09/30/25 13:59 120 mls/hr Q8HR CELESTINE Administration Protocol Insulin Degludec 20 unit 09/22/25 21:00 09/23/25 20:23 Insulin Degludec 5 Unit/0.05 Ml (Per 5 Units) SC 10/22/25 20:59 20 unit HS CELESTINE Administration Insulin Human Lispro 0 unit 09/20/25 17:00 09/24/25 07:38 Insulin Lispro (Admelog) 1 Unit/0.01 Ml Unit SC 10/20/25 16:59 4 unit ACHS CELESTINE Administration Protocol Insulin Human Lispro 5 unit 09/22/25 17:00 09/24/25 07:39 Insulin Lispro (Admelog) 1 Unit/0.01 Ml Unit SC 10/22/25 16:59 5 unit AC CELESTINE Administration Multivitamins/Minerals 15 ml 09/22/25 09:00 09/23/25 08:54 Multivitamin 15 Ml Udc PO 10/22/25 08:59 15 ml QDAY CELESTINE Administration Ondansetron HCl 4 mg 09/17/25 15:09 Ondansetron Inj 2 Mg/Ml Inj 2 Ml IVP 10/17/25 15:08 Q6H PRN NAUSEA OR VOMITING Protocol Oxycodone HCl 10 mg 09/20/25 18:00 09/24/25 06:02 Oxycodone Hcl 5 Mg Ir Tab PO 09/25/25 17:59 10 mg Q6HR CELESTINE Administration Oxycodone HCl 5 mg 09/22/25 14:13 09/23/25 15:48 Oxycodone Hcl 5 Mg Ir Tab PO 09/27/25 14:12 5 mg Q4HR PRN Administration PAIN SCALE 4-10(Mod-Sev Pantoprazole Sodium 40 mg 09/21/25 22:30 09/23/25 08:54 Pantoprazole Inj 40 Mg Vial IVP 10/21/25 22:29 40 mg QDAY CELESTINE Administration Pharmacy Consult 1 each 09/18/25 09:00 09/23/25 10:09 Vancomycin Pharmacy To Dose 1 Each Each IV 10/18/25 08:59 Not Given QDAY CELESTINE Sennosides 1 tab 09/22/25 21:00 09/23/25 20:17 Senna/Docusate Sod 1 Tab Tablet PO 10/22/25 20:59 1 tab HS CELESTINE Administration Protocol Sodium Chloride 0 ml 09/21/25 16:00 09/23/25 08:56 Sodium Cl Irrig Soln 1,000 Ml Bag IRRIG 10/21/25 15:59 Not Given QDAY CELESTINE Zinc Sulfate 220 mg 09/22/25 09:00 09/23/25 08:55 Zinc Sulfate 220 Mg Capsule PO 10/05/25 08:59 220 mg QDAY CELESTINE Administration Plan Summary: Mr. Carrera is a 55 year old gentleman with a hx of T2DM- poorly controlled (a1c 10) with no active PCP managment who presented to the ed on 09/17 10 days after a fall from a ladder resulting in injury of his R foot and subsequent errythema and swelling, found to have R foot abscess concerning for nec fasc, s/p incision and drainage with Dr. Ruffin on 09/17, on IV broad spectrum antibiotics, with plan for likely subsequent incisions and drainages, and possible amputation. POD2, leukocytosis stable at 17, s/p second washout on 09/20. R foot abscess concerning for necrotizing fasciaitis s/p I and Dx2 elevated alk phos s/p I and D with Dr. Ruffin 09/17 pt presented 10 days after falling off of a ladder at work. he states that his foot got caught in the rung of the ladder and that he fell backwards and twisted and injured his ankle. he did not seek medical attention at that time. His pain and swelling worsened and he experienced chills which prompted him to present to the ED. suspect that R foot wound did not heal 2/2 poorly controlled DM and immuno compromised state and poor peripheral perfusion. leukocytosis is downtrending, lots of pus expressed during wound care on 09/19 s/p 2nd I and D with Dr Ruffin 09/20, wbc stable at 17 09/21 with wound vac and straw collored copius output. 09/23: Patient continues to have straw-colored/whitehead-colored output from wound VAC. Surrounding erythema and edema. Pain is well-controlled. 09/24: Whitehead-colored output from wound VAC continues. Surgery plans for debridement versus BKA on 09/25/2025. Dx Foot CT: Extensive soft tissue infection with gas-forming organisms involving all of the soft tissues of the foot BLE DVT US : negative for DVT wound cultures prelim with Strep Dysgalataie, Ucx NGTD blood cultures ngtd @48 hours Abx Vancomycin 1gm IV pharmacy to dose (09/17- Zosyn 3.375 gm IV q8hr (09/17- Clindamycin 600mg IV q8hr (09/17- Cefepime x1 in the ED Pain management Discontinued NORCO 5-325 q4hr prn for moderate to severe pain Discontinued IV Dilaudid 09/24/2025 APAP IV q6hr celestine oxycodone 10 mg q6hr celestine (helps with the minimizing having excrutiating pain, still having severe break through pain, was crying on 09/22) oxycodone 5 mg q4hr prn for moderate to severe pain. Gabapentin 200 mg TID- pt reports that it makes him very tired but with minimal relief of his foot pain Plan - surgery consulted, appreciate recs, s/p incision and drainage by Dr. Ruffin on 09/17 and 09/20 wounds left open to promote drainage. Copius pus found during surgery - NPO at midight pending 3rd washout with Dr. Ruffin on 09/25/2025 -per patient he is to decide on below-knee amputation could require multiple incisions, and will require wounds to remain open for adequate drainage. 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 pt states that he was diagnosed with dm in 2014, by his pcp and was not initiated on any medication therapies at that time. he was lost to follow up and has not been seen by a PCP since that time. pt states that he initiated dietary changes with intent to control his dm. Plan Lispro 5 units TID with meals scheduled (3-->5) Degludec 20 units qhs (increased 7-->10-->15-->20) ISS step 3 ACHS Bedside glucose checks Diet, carb consistent diabetes education dietitian consulted, appreciate recs Normocytic Anemia Hemoglobin has been downtrending Plan Transfuse if hemoglobin less than 7 Mild hyponatremia Mild hypochloremia Hypophosphatemia (Resolved) Corrected sodium 135 based on current glucose Plan: Monitor for now Dispo: Med tele, s/p second washout of R foot abscess with strep dysgalactae on IV broad spectrum abx, and wound vac. WBC trending down. Surgery plans for debridement on 09/25/2025. Considering BKA. Diet: Carb consistent Bowel Reg: senna/docusate scheduled, given opioids given for pain VTE ppx: Heparin GI ppx: Not indicated Code status: FULL Patient was seen and discussed with my attending physician Dr. Case HOLMAN and my senior resident Dr. Patel HOLMAN PGY-2. Moe Celaya DO PGY-1.
[2025-09-24] MEDS: ZINC SULFATE 220 MG CAPSULE PO (08:38)
[2025-09-24] MEDS: ASCORBIC ACID 250 MG TABLET 500 MG PO ×2 (08:38→21:42)
[2025-09-24] MEDS: MULTIVITAMIN 15 ML UDC PO (08:39)
[2025-09-24] MEDS: HEPARIN SOD INJ 5000 UNIT/ML VIAL SC ×2 (08:39→21:43)
[2025-09-24] MEDS: HYDROmorphone INJ 2 MG/ML VIAL 1 MG IVP (11:35)
[2025-09-24] MEDS: SODIUM CL IRRIG SOLN 1,000 ML BAG IRRIG (12:17)
[2025-09-24] MEDS: oxyCODONE HCL 5 MG IR TAB PO (15:12)
--- NOTE | 2025-09-24 15:36 | PC.SS ---
rounding note: S/p I & D. Patient remains on iv. antibiotics. I.v. pain meds. Pending surgery rec's. Post op day 3. Possible BKA.
[2025-09-24] MEDS: HYDROMORPHONE HCL 2 MG TABLET PO ×3 (15:41→22:01)
--- NOTE | 2025-09-24 16:59 | ESPR_ITS ---
Documentation for date of: 09/24/25 Subjective Subjective Brief History: 55M with DMII not on medications (pt states he was told he had preDM but had not followed up) presenting with right foot pain, redness and fatigue. Pt states he fell off a ladder on 09/05 and since then noted worsening pain and appearance of his right foot as well as fatigue. In ER he is found to have WBC 25, A1c [address] showing extensive gas and abscess of R foot PMH: DMII (not on meds) PSHx: None Meds: None Allergies: NKDA Social hx: Nonsmoker Narrative: Pt reports ongoing pain. He has some relief with dilaudid but it does not last and oxycodone helps somewhat. His WBC has decreased to 12 however examination of the foot wounds showed a significant amount of necrotic skin and subcutaneous tissue Exam Vital Signs Temp Pulse Resp BP Pulse Ox O2 Del Method O2 Flow Rate 99.5 F 100 18 127/78 97 Room Air 3 09/24/25 15:55 09/24/25 16:00 09/24/25 15:55 09/24/25 15:55 09/24/25 15:55 09/24/25 15:55 09/21/25 12:00 Constitutional Constitutional: no acute distress Routine Respiratory Exam Respiratory: Present no resp distress Routine Extremities Exam Comments: right foot dusky, lateral wound with necrotic skin and subcutaneous tissue. necrotic skin also on the plantar surface of the foot adjacent to the existing wound Results Results: Laboratory Laboratory results: results reviewed Assessment & Plan Plan 55M with DMII not on meds (A1c 10) presenting with extensive right foot abscess, no signs of osteomyelitis s/p I&D 09/17 and debridement 09/20, with ongoing necrotic skin and subcutaneous tissue. I explained to pt that I can repeat debridement however I do not know what kind of function his foot will go on to have, if it ever were to fully heal from these procedures which is not a guarantee. I explained that below knee amputation would be definitive and that with a prosthetic pt will eventually be able to do all of his usual activities. He is understandably hesitant to undergo amputation but would like to consider and will let me know by tomorrow. OR tomorrow 2pm for either repeat debridement or R BKA Type and screen ordered, 2u PRBC inventory control planner to OR in case of amputation NPO after MN PROCEDURES: Procedures Incision and drainage of right foot abscess, excisional debridement
[2025-09-24] MEDS: ACETAMINOPHEN IVPB 1,000 MG/100 ML VIAL 250 MG IV ×2 (17:31→23:46)
[2025-09-24] MEDS: SENNA/DOCUSATE SOD 1 TAB TABLET PO (21:42)
[2025-09-24] MEDS: INSULIN DEGLUDEC 5 UNIT/0.05 ML (PER 5 UNITS) 20 UNIT SC (21:43)
[2025-09-25] VITALS (14 sets, daily range): BP systolic 101–130; BP diastolic 63–86; PULSE 76–93; RESP 12–18; TEMP 36.1–36.8; O2SAT 95–100
[2025-09-25] MEDS: HYDROMORPHONE HCL 2 MG TABLET PO (04:42)
[2025-09-25] MEDS: ACETAMINOPHEN IVPB 1,000 MG/100 ML VIAL 250 MG IV ×4 (05:01→23:49)
[2025-09-25] MEDS: VANCOMYCIN/WATER 1GM IVPB 200 ML IV (05:46)
[2025-09-25 06:02] LABS: Basophils # (Auto) 0.0 Thou/mm3 (0.0-0.2); Basophils % (Auto) 0 % (0-2.5); Eosinophils # (Auto) 0.1 Thou/mm3 (0.0-0.5); Eosinophils % (Auto) 1 % (0-10); Hematocrit 27.4 % (41.0-53.0); Immature Granulocytes Auto 0.20 Thou/mm3 (0.00-0.00); Lymphocytes # (Auto) 1.3 Thou/mm3 (1.0-4.8); Lymphocytes % (Auto) 12 % (10-50); Mean Corpuscular HGB Conc 32.1 g/dl (31.0-37.0); Mean Corpuscular Hemoglobin 28.7 pg (25.0-35.0); Mean Corpuscular Volume 89 fL (80-100); Monocytes # (Auto) 0.9 Thou/mm3 (0.0-0.8); Monocytes % (Auto) 9 % (0-12); Neutrophils # (Auto) 8.1 Thou/mm3 (1.8-7.7); Neutrophils % (Auto) 76 % (37-80); Nucleated Red Blood Cell # 0.00 Thou/mm3 (0.00-0.00); Nucleated Red Blood Cell % 0 /100 WBC (0); Platelet Count 843 Thou/mm3 (140-440); RDW Standard Deviation 46.3 fL (35.1-43.9); Red Blood Count 3.07 Miln/mm3 (4.50-5.90); White Blood Count 10.7 Thou/mm3 (3.8-10.6)
[2025-09-25 06:34] LABS: Alanine Aminotransferase 24 U/L (10-49); Albumin, Serum 3.4 gm/dL (3.5-5.0); Albumin/Globulin Ratio 0.7 (1.2-2.2); Anion Gap 8 (7-16); Aspartate Amino Transferase 33 U/L (0-34); BUN/Creatinine Ratio 11 Ratio (12-20); Bilirubin,Total 0.5 mg/dL (0.3-1.2); Blood Urea Nitrogen 9 mg/dL (9-23); Calcium 8.9 mg/dL (8.3-10.6); Calcium (Corrected) 9.4 mg/dL (8.5-10.1); Carbon Dioxide 28.2 mMol/L (20.0-31.0); Chloride 97 mMol/L (98-107); Creatinine (Component) 0.8 mg/dL (0.6-1.3); Estimated Creatinine Clearance 102.1 mL/min (>60); Globulin 4.6 gm/dL (2.3-3.5); Glucose 240 mg/dL (74-106); Osmolality,Calculated 273 (275-295); Potassium 4.1 mMol/L (3.4-5.1); Sodium 133 mMol/L (136-145); Total Protein 8.0 gm/dL (5.7-8.2); eGFR > 60 See Note
[2025-09-25 06:49] LABS: Hemoglobin 8.8 g/dL (13.5-16.0)
[2025-09-25 06:55] LABS: Alkaline Phosphatase 180 U/L (46-116)
--- NOTE | 2025-09-25 07:56 | ESPR_ITS ---
<Statement entered by Mattie Sweeney MD - 09/26/25 16:12> Pt is scheduled to undergo I&D with surgery, continues to have pain in the foot. Will continue IV abx and pain meds. No plans for BKA at this time. Patient was seen and examined by me personally. I have directly supervised and reviewed documentation by the team resident and agree with its findings. ------- Plan of care was discussed with the attending, Dr. Maryan Sweeney, PGY-2 Documentation for date of: 09/25/25 Subjective Subjective Interval history: npo pending surgery today at 1400 with [place] possble bka vs wash out, pt to decide today. Exam Vital Signs Temp Pulse Resp BP Pulse Ox O2 Del Method O2 Flow Rate 97.2 F 77 17 111/65 98 Room Air 3 09/25/25 04:00 09/25/25 04:00 09/25/25 04:00 09/25/25 04:00 09/25/25 04:00 09/25/25 04:00 09/21/25 12:00 Narrative Exam General: Awake and in no acute distress. Conversational and non-toxic appearing. Neurologic: GCS 15. Alert and oriented x3, no gross neurological deficit, and patient able to move all 4 extremities. HEENT: Normocephalic, atraumatic, mucous membranes moist. Pupils reactive to light. Heart: Regular rate and rhythm, normal S1 and S2, no murmurs. Lungs: Clear to auscultation bilaterally with no wheezing or crackles. Abdomen: Soft, nondistended, nontender, positive bowel sounds. No guarding or rebound tenderness. Extremities: Right foot has circumferential wound (?dusky per wound care with tendons visable , wound vac was removed yesterday, foot is wraped in kerlix with some drainage noted on the achilles. Skin: Warm. Dry. No rash or ecchymoses. Objective Labs 09/26/25 05:00 09/26/25 05:00 Labs: Laboratory Results - last 24 hr 09/25/25 05:01 WBC 10.7 H RBC 3.07 L Hgb 8.8 L Hct 27.4 L MCV 89 MCH 28.7 MCHC 32.1 RDW Std Deviation 46.3 H Plt Count 843 H D Neut % (Auto) 76 Lymph % (Auto) 12 [place] % (Auto) 9 Eos % (Auto) 1 Baso % (Auto) 0 Neut # (Auto) 8.1 H Lymph # (Auto) 1.3 [place] # (Auto) 0.9 H Eos # (Auto) 0.1 Baso # (Auto) 0.0 Immature Gran # (Auto) 0.20 H Absolute Nucleated RBC 0.00 Immature Gran % 2 H Nucleated RBC % 0 Sodium 133 L Potassium 4.1 Chloride 97 L Carbon Dioxide 28.2 Anion Gap 8 BUN 9 Creatinine 0.8 Estim Creat Clear Calc 102.1 eGFR > 60 BUN/Creatinine Ratio 11 L Glucose 240 H Calculated Osmolality 273 L Calcium 8.9 Corrected Calcium 9.4 Total Bilirubin 0.5 AST 33 ALT 24 Alkaline Phosphatase 180 H Total Protein 8.0 Albumin 3.4 L D Globulin 4.6 H Albumin/Globulin Ratio 0.7 L ABG Interpretation ABG results: 09/17/25 09:45 VBG pH 7.48 VBG pCO2 41 VBG pO2 46 VBG Base Excess 6 H Quality Measures Quality Measures VTE prophylaxis Assessment & Plan Assessment Current Active Medications: Generic Name Dose Route Start Last Admin Trade Name Freq PRN Reason Stop Dose Admin Ascorbic Acid 500 mg 09/21/25 21:00 09/24/25 21:42 Ascorbic Acid 250 Mg Tablet PO 10/21/25 20:59 500 mg BID CELESTINE Administration Dextrose 25 ml 09/17/25 19:54 Dextrose 50%-Water Inj 50 Ml Syringe IV 10/17/25 19:53 Q15MIN PRN BG 50-70 responsive npo pt Dextrose 50 ml 09/17/25 19:54 Dextrose 50%-Water Inj 50 Ml Syringe IV 10/17/25 19:53 Q15MIN PRN BG <50 OR BG <70 & pt unresponsive Gabapentin 200 mg 09/18/25 14:00 09/25/25 05:54 Gabapentin 100 Mg Capsule PO 10/18/25 13:59 Not Given TID CELESTINE Glucagon 1 mg 09/17/25 19:54 Glucagon Inj 1 Mg Vial IM Q15MIN PRN BG <70, and no IV access Heparin Sodium (Porcine) 5,000 unit 09/22/25 21:00 09/24/25 21:43 Heparin Sod Inj 5000 Unit/Ml Vial SC 10/06/25 20:59 5,000 unit Q12HR CELESTINE Administration Hydromorphone HCl 2 mg 09/24/25 15:28 09/25/25 04:42 Hydromorphone Hcl 2 Mg Tablet PO 09/29/25 15:27 2 mg Q3HR PRN Administration BREAKTHROUGH PAIN (SEVERE) Vancomycin HCl 200 mls @ 120 mls/hr 09/23/25 14:00 09/25/25 05:46 Vancomycin/Water 1gm Ivpb IV 09/30/25 13:59 120 mls/hr Q8HR CELESTINE Administration Protocol Acetaminophen 1,000 mg in 100 mls @ 250 mls/hr 09/24/25 17:00 09/25/25 05:01 Ofirmev Inj IV 09/25/25 12:23 250 mls/hr Q6HR CELESTINE Administration Insulin Degludec 20 unit 09/22/25 21:00 09/24/25 21:43 Insulin Degludec 5 Unit/0.05 Ml (Per 5 Units) SC 10/22/25 20:59 20 unit HS CELESTINE Administration Insulin Human Lispro 0 unit 09/20/25 17:00 09/25/25 07:21 Insulin Lispro (Admelog) 1 Unit/0.01 Ml Unit SC 10/20/25 16:59 Not Given ACHS [facility] Protocol Insulin Human Lispro 5 unit 09/22/25 17:00 09/25/25 07:22 Insulin Lispro (Admelog) 1 Unit/0.01 Ml Unit SC 10/22/25 16:59 Not Given AC [facility] Multivitamins/Minerals 15 ml 09/22/25 09:00 09/24/25 08:39 Multivitamin 15 Ml Udc PO 10/22/25 08:59 15 ml QDAY CELESTINE Administration Ondansetron HCl 4 mg 09/17/25 15:09 Ondansetron Inj 2 Mg/Ml Inj 2 Ml IVP 10/17/25 15:08 Q6H PRN NAUSEA OR VOMITING Protocol Oxycodone HCl 10 mg 09/20/25 18:00 09/25/25 05:54 Oxycodone Hcl 5 Mg Ir Tab PO 09/25/25 17:59 Not Given Q6HR [facility] Pantoprazole Sodium 40 mg 09/21/25 22:30 09/24/25 08:46 Pantoprazole Inj 40 Mg Vial IVP 10/21/25 22:29 40 mg QDAY CELESTINE Administration Pharmacy Consult 1 each 09/18/25 09:00 09/24/25 10:59 Vancomycin Pharmacy To Dose 1 Each Each IV 10/18/25 08:59 Not Given QDAY CELESTINE Sennosides 1 tab 09/22/25 21:00 09/24/25 21:42 Senna/Docusate Sod 1 Tab Tablet PO 10/22/25 20:59 1 tab HS CELESTINE Administration Protocol Sodium Chloride 0 ml 09/21/25 16:00 09/24/25 12:17 Sodium Cl Irrig Soln 1,000 Ml Bag IRRIG 10/21/25 15:59 50 ml On Hold: 09/24/25 15:59 QDAY CELESTINE Administration Resume: 09/26/25 08:00 Zinc Sulfate 220 mg 09/22/25 09:00 09/24/25 08:38 Zinc Sulfate 220 Mg Capsule PO 10/05/25 08:59 220 mg QDAY CELESTINE Administration Plan Mr. Carrera is a 55 year old gentleman with a hx of T2DM- poorly controlled (a1c 10) with no active PCP managment who presented to the ed on 09/17 10 days after a fall from a ladder resulting in injury of his R foot and subsequent errythema and swelling, found to have R foot abscess concerning for nec fasc, s/p incision and drainage with Dr. Ruffin on 09/17, on IV broad spectrum antibiotics, with plan for likely subsequent incisions and drainages, and possible amputation.leukocytosis downtrending. possible bka today R foot abscess concerning for necrotizing fasciaitis s/p I and Dx2 elevated alk phos s/p I and D with Dr. Ruffin 09/17 pt presented 10 days after falling off of a ladder at work. he states that his foot got caught in the rung of the ladder and that he fell backwards and twisted and injured his ankle. he did not seek medical attention at that time. His pain and swelling worsened and he experienced chills which prompted him to present to the ED. suspect that R foot wound did not heal 2/2 poorly controlled DM and immuno compromised state and poor peripheral perfusion. leukocytosis is downtrending, lots of pus expressed during wound care on 09/19 s/p 2nd I and D with Dr Ruffin 09/20, wbc stable at 17 09/21 with wound vac and straw collored copius output. 09/23: Patient continues to have straw-colored/wihtehead-colored output from wound VAC. Surrounding erythema and edema. Pain is well-controlled. 09/24: Whitehead-colored output from wound VAC continues. Surgery plans for debridement versus BKA on 09/25/2025. 09/25: pending 3rd surgery today , i and d vs bka. Dx Foot CT: Extensive soft tissue infection with gas-forming organisms involving all of the soft tissues of the foot BLE DVT US : negative for DVT wound cultures prelim with Strep Dysgalataie, Ucx NGTD blood cultures ngtd @48 hours Abx Vancomycin 1gm IV pharmacy to dose (09/17-09/25) Zosyn 3.375 gm IV q8hr (09/17-09/24) Clindamycin 600mg IV q6hr (09/17- Cefepime x1 in the ED Pain management Discontinued NORCO 5-325 q4hr prn for moderate to severe pain REcontinued IV Dilaudid 09/25/2025 1 mg IVP q4hrs APAP IV q6hr celestine oxycodone 10 mg q6hr celestine (helps with the minimizing having excrutiating pain, still having severe break through pain, was crying on 09/22) oxycodone 5 mg q4hr prn for moderate to severe pain. Gabapentin 200 mg TID- pt reports that it makes him very tired but with minimal relief of his foot pain Plan - surgery consulted, appreciate recs, s/p incision and drainage by Dr. Ruffin on 09/17 and 09/20 wounds left open to promote drainage. Copius pus found during surgery - NPO at midight pending 3rd washout with Dr. Ruffin on 09/25/2025 -per patient he is to decide on below-knee amputation could require multiple incisions, and will require wounds to remain open for adequate drainage. I also informed pt that depending on the extent of the infection and his recovery in the coming days he may go on to require amputation - CTM leukocytosis , CRP, ESR, - Consider repeat imaging, per surgery recommendations - Monitor for new or worsening errythema or crepitus and call monotype setter surgeon emergently given c/f spreading of nec fasc - incentive spirometry for pna ppx - wound care consulted, appreciate recs - Vit C 500mg BID - Zinc Sulfate 220mg qd for 14 days (09/22- 10/05 end date ) - multivitamin 15 ml QD T2DM- poorly controlled A1c 10.7 on admission. pt states that he was diagnosed with dm in 2014, by his pcp and was not initiated on any medication therapies at that time. he was lost to follow up and has not been seen by a PCP since that time. pt states that he initiated dietary changes with intent to control his dm. Plan Lispro 5 units TID with meals scheduled (3-->5) Degludec 25 units qhs (increased 7-->10-->15-->20-->25) ISS step 3 ACHS Bedside glucose checks Diet, carb consistent diabetes education dietitian consulted, appreciate recs Normocytic Anemia Hemoglobin has been downtrending Plan Transfuse if hemoglobin less than 7 Constipation - senna and docusate qd - give x1 lactulose tonight if no BM this AM, last BM on 09/22 Mild hyponatremia Mild hypochloremia Hypophosphatemia (Resolved) Corrected sodium 135 based on current glucose Plan: Monitor for now Dispo: Med tele,npo pending third washout of R foot abscess with strep dysgalactae on IV broad spectrum abx, WBC trending down. Surgery plans for debridement on 09/25/2025. Considering BKA. Diet: NPO pending surgery, Carb consistent Bowel Reg: senna/docusate scheduled, given opioids given for pain VTE ppx: Heparin GI ppx: Not indicated Code status: FULL Plan discussed with my attending Dr. Steinberg and my senior Dr. Patel Gordon MD PGY1 Attending Provider Attestation/Addendum I have seen and examined the patient. I was physically present for the [place] portions of the services provided including history, physical exam, diagnosis, treatment plans and orders. I agree with assessment and plan of care as documented by residents. Patient seen and examined at bedside this morning. Appears comfortable and denies any new complaints. Vital signs are stable , Lab results show worsening WBC, likely secondary to procedure yesterday. Analgesic regimen switched from IV Dilaudid to IV ketorolac, we will attempt to taper down. General surgery following closely, plans to change dressing on Wednesday. Continues to be on IV clindamycin. Even though this this note was carefully revised there may still be minor errors in wire annealer due to voice recognition software. Juventino Steinberg MD
[2025-09-25] MEDS: HYDROmorphone INJ 2 MG/ML VIAL 1 MG IVP ×3 (10:03→20:57)
[2025-09-25] MEDS: oxyCODONE HCL 5 MG IR TAB 10 MG PO (12:08)
[2025-09-25] MEDS: CLINDAMYCIN/NS 300MG IVPB 300 MG/50 ML BAG 100 MG IV ×2 (12:43→18:24)
--- NOTE | 2025-09-25 15:16 | PD.SUROPNT ---
Date of Procedure 09/25/25 Pre Op Diagnosis Right foot abscess with necrotic tissue Post Op Diagnosis Same Procedure Excisional debridement of right foot wounds Findings Right foot wounds with necrotic subcutaneous tissue and pus Procedure Description After discussion of risks and benefits including the possibility of requiring further procedures including below-knee potation, patient ultimately preferred to undergo another debridement procedure. He was brought to the operating room and general anesthesia with LMA was induced. He is already receiving preoperative antibiotics and was prepped and draped in the usual sterile fashion. After timeout the wound at the lateral aspect of the foot was first addressed. Necrotic subcutaneous tissue was sharply debrided down to the level of bone using a curette. There was a pocket of pus towards the heel. I then turned attention to the wound on the medial and distal aspect of the foot. There was some necrotic skin which was sharply excised with scissors and there was also necrotic subcutaneous tissue which was curettaged down to the level of muscle. Again there was a pocket of pus which was expressed. On the medial malleolus there was an existing wound which was also curettaged down to the level of subcutaneous tissue. Each of these wounds was irrigated with Betadine, hydrogen peroxide and saline. Hemostasis was achieved with electrocautery. Wounds were packed with moistened Kerlix and wrapped with fluffs which were secured with Kerlix. Patient was extubated and brought to PACU in stable condition Pathology / specimen None Estimated Blood Loss 20 Surgeon Kimmie Ruffin MD Surgical Staff Operation Date: 09/25/25 14:15 Case Staff Anesthesiologist: Aidan Edgar RN First Assistant: Lindsey Glass
[2025-09-25] MEDS: fentaNYL CIT INJ 50 mCg/ML AMP 2ML 25 MCG IVP ×3 (15:46→16:34)
--- NOTE | 2025-09-25 16:42 | SUR.PHASEI ---
pt awake and alert, breathing unlabored on room air. v/s stable. pt dressing to right foot cdi. report called to Regulo Kennedy. pt will be transferred to room at this time.
[2025-09-25] MEDS: INSULIN LISPRO (AdmeLOG) 1 UNIT/0.01 ML UNIT SC ×2 (17:36→21:05)
[2025-09-25] MEDS: INSULIN LISPRO (AdmeLOG) 1 UNIT/0.01 ML UNIT 5 UNIT SC (17:36)
[2025-09-25] MEDS: ASCORBIC ACID 250 MG TABLET 500 MG PO (21:02)
[2025-09-25] MEDS: GABAPENTIN 100 MG CAPSULE 200 MG PO (21:03)
[2025-09-25] MEDS: INSULIN DEGLUDEC 5 UNIT/0.05 ML (PER 5 UNITS) 25 UNIT SC (21:06)
[2025-09-25] MEDS: HEPARIN SOD INJ 5000 UNIT/ML VIAL SC (21:09)
[2025-09-25] MEDS: oxyCODONE HCL 5 MG IR TAB PO (21:24)
[2025-09-26] VITALS (9 sets, daily range): BP systolic 92–136; BP diastolic 56–79; PULSE 71–92; RESP 17–18; TEMP 36.1; O2SAT 96–99
[2025-09-26] MEDS: HYDROmorphone INJ 2 MG/ML VIAL 1 MG IVP ×3 (00:29→08:12)
[2025-09-26] MEDS: CLINDAMYCIN/NS 300MG IVPB 300 MG/50 ML BAG 100 MG IV ×5 (00:33→23:27)
[2025-09-26] MEDS: oxyCODONE HCL 5 MG IR TAB PO ×4 (03:06→23:26)
[2025-09-26 05:51] LABS: Basophils # (Auto) 0.0 Thou/mm3 (0.0-0.2); Basophils % (Auto) 0 % (0-2.5); Eosinophils # (Auto) 0.0 Thou/mm3 (0.0-0.5); Eosinophils % (Auto) 0 % (0-10); Hematocrit 29.2 % (41.0-53.0); Hemoglobin 9.6 g/dL (13.5-16.0); Immature Granulocytes Auto 0.24 Thou/mm3 (0.00-0.00); Lymphocytes # (Auto) 1.3 Thou/mm3 (1.0-4.8); Lymphocytes % (Auto) 8 % (10-50); Mean Corpuscular HGB Conc 32.9 g/dl (31.0-37.0); Mean Corpuscular Hemoglobin 29.6 pg (25.0-35.0); Mean Corpuscular Volume 90 fL (80-100); Monocytes # (Auto) 0.7 Thou/mm3 (0.0-0.8); Monocytes % (Auto) 4 % (0-12); Neutrophils # (Auto) 15.5 Thou/mm3 (1.8-7.7); Neutrophils % (Auto) 87 % (37-80); Nucleated Red Blood Cell # 0.00 Thou/mm3 (0.00-0.00); Nucleated Red Blood Cell % 0 /100 WBC (0); Platelet Count 734 Thou/mm3 (140-440); RDW Standard Deviation 47.7 fL (35.1-43.9); Red Blood Count 3.24 Miln/mm3 (4.50-5.90); White Blood Count 17.8 Thou/mm3 (3.8-10.6)
[2025-09-26] MEDS: GABAPENTIN 100 MG CAPSULE 200 MG PO ×3 (05:53→21:01)
[2025-09-26] MEDS: ACETAMINOPHEN IVPB 1,000 MG/100 ML VIAL 250 MG IV ×3 (05:55→18:33)
[2025-09-26 06:07] LABS: Alanine Aminotransferase 21 U/L (10-49); Albumin, Serum 3.6 gm/dL (3.5-5.0); Albumin/Globulin Ratio 0.7 (1.2-2.2); Alkaline Phosphatase 190 U/L (46-116); Anion Gap 9 (7-16); Aspartate Amino Transferase 25 U/L (0-34); BUN/Creatinine Ratio 16 Ratio (12-20); Bilirubin,Total 0.5 mg/dL (0.3-1.2); Blood Urea Nitrogen 13 mg/dL (9-23); Calcium 8.7 mg/dL (8.3-10.6); Calcium (Corrected) 9.0 mg/dL (8.5-10.1); Carbon Dioxide 28.0 mMol/L (20.0-31.0); Chloride 97 mMol/L (98-107); Creatinine (Component) 0.8 mg/dL (0.6-1.3); Estimated Creatinine Clearance 102.1 mL/min (>60); Globulin 5.0 gm/dL (2.3-3.5); Glucose 355 mg/dL (74-106); Osmolality,Calculated 282 (275-295); Potassium 4.4 mMol/L (3.4-5.1); Sodium 134 mMol/L (136-145); Total Protein 8.6 gm/dL (5.7-8.2); eGFR > 60 See Note
--- NOTE | 2025-09-26 07:38 | CHAP ---
Patient was visited by a Spiritual Care Volunteer on 09/25/2025 between 0900 and 1200 and received comfort, encouragement and/or prayer.
[2025-09-26] MEDS: INSULIN LISPRO (AdmeLOG) 1 UNIT/0.01 ML UNIT SC ×3 (07:58→20:58)
[2025-09-26] MEDS: INSULIN LISPRO (AdmeLOG) 1 UNIT/0.01 ML UNIT 5 UNIT SC (07:59)
[2025-09-26] MEDS: ZINC SULFATE 220 MG CAPSULE PO (08:13)
[2025-09-26] MEDS: MULTIVITAMIN 15 ML UDC PO (08:13)
[2025-09-26] MEDS: HEPARIN SOD INJ 5000 UNIT/ML VIAL SC ×2 (08:13→21:00)
[2025-09-26] MEDS: ASCORBIC ACID 250 MG TABLET 500 MG PO ×2 (08:13→21:02)
--- NOTE | 2025-09-26 08:13 | ESPR_ITS ---
<Statement entered by Mattie Sweeney MD - 09/26/25 17:31> pt is seen at bedside, reports he has a bowel movement, pain is well controlled. Discussed with surgery no further plans for repeat I&D or wound VAC. Pt will likely need BKA, will continue IV abx and wound care for now. Pt needs more time to think about if he wants to get BKA during this hospital admission or outpatient after more time with wound care. Patient was seen and examined by me personally. I have directly supervised and reviewed documentation by the team resident and agree with its findings. ------- Plan of care was discussed with the attending, Dr. Maryan Sweeney, PGY-2 Documentation for date of: 09/26/25 Subjective Subjective Interval history: Patient seen and examined at bedside. Patient seen post third debridement with Dr. Ruffin Right foot is bandaged with Kerlix. Patient reports pain is well-controlled with current regimen Patient had bowel movement. Exam Vital Signs Temp Pulse Resp BP Pulse Ox O2 Del Method O2 Flow Rate 97.0 F 72 17 100/74 97 Room Air 4 09/26/25 07:39 09/26/25 07:39 09/26/25 07:39 09/26/25 07:39 09/26/25 07:39 09/26/25 07:39 09/25/25 16:00 Narrative Exam General: Awake and in no acute distress. Conversational and non-toxic appearing. Neurologic: GCS 15. Alert and oriented x3, no gross neurological deficit, and patient able to move all 4 extremities. HEENT: Normocephalic, atraumatic, mucous membranes moist. Pupils reactive to light. Heart: Regular rate and rhythm, normal S1 and S2, no murmurs. Lungs: Clear to auscultation bilaterally with no wheezing or crackles. Abdomen: Soft, nondistended, nontender, positive bowel sounds. No guarding or rebound tenderness. Extremities: Right foot has circumferential wounds, foot is wraped in kerlix status post I&D with Dr. Webster on 09/25. Skin: Warm. Dry. No rash or ecchymoses. Objective Labs 09/26/25 05:00 09/26/25 05:00 Labs: Laboratory Results - last 24 hr 09/25/25 09/25/25 09/26/25 05:01 08:26 05:00 WBC 17.8 H D RBC 3.24 L Hgb 9.6 L Hct 29.2 L MCV 90 MCH 29.6 MCHC 32.9 RDW Std Deviation 47.7 H Plt Count 734 H D Neut % (Auto) 87 H Lymph % (Auto) 8 L [place] % (Auto) 4 Eos % (Auto) 0 Baso % (Auto) 0 Neut # (Auto) 15.5 H Lymph # (Auto) 1.3 [place] # (Auto) 0.7 Eos # (Auto) 0.0 Baso # (Auto) 0.0 Immature Gran # (Auto) 0.24 H Absolute Nucleated RBC 0.00 Immature Gran % 1 H Nucleated RBC % 0 Sodium 134 L Potassium 4.4 Chloride 97 L Carbon Dioxide 28.0 Anion Gap 9 BUN 13 Creatinine 0.8 Estim Creat Clear Calc 102.1 eGFR > 60 BUN/Creatinine Ratio 16 Glucose 355 H D Calculated Osmolality 282 Calcium 8.7 Corrected Calcium 9.0 Total Bilirubin 0.5 AST 25 ALT 21 Alkaline Phosphatase 190 H Total Protein 8.6 H Albumin 3.6 Globulin 5.0 H Albumin/Globulin Ratio 0.7 L Blood Type Cancelled O Positive Antibody Screen Cancelled NEGATIVE Crossmatch See Detail Blood Bank Wristband ID Cancelled Yes ABG Interpretation ABG results: 09/17/25 09:45 VBG pH 7.48 VBG pCO2 41 VBG pO2 46 VBG Base Excess 6 H Quality Measures Quality Measures VTE prophylaxis Assessment & Plan Assessment Current Active Medications: Generic Name Dose Route Start Last Admin Trade Name Freq PRN Reason Stop Dose Admin Ascorbic Acid 500 mg 09/21/25 21:00 09/25/25 21:02 Ascorbic Acid 250 Mg Tablet PO 10/21/25 20:59 500 mg BID CELESTINE Administration Cadexomer Iodine 0 gm 09/26/25 09:00 Cadexomer Iodine Gel 40 Gm Tube TOP 10/03/25 08:59 DAILY CELESTINE Dextrose 25 ml 09/17/25 19:54 Dextrose 50%-Water Inj 50 Ml Syringe IV 10/17/25 19:53 Q15MIN PRN BG 50-70 responsive npo pt Dextrose 50 ml 09/17/25 19:54 Dextrose 50%-Water Inj 50 Ml Syringe IV 10/17/25 19:53 Q15MIN PRN BG <50 OR BG <70 & pt unresponsive Gabapentin 200 mg 09/18/25 14:00 09/26/25 05:53 Gabapentin 100 Mg Capsule PO 10/18/25 13:59 200 mg TID CELESTINE Administration Glucagon 1 mg 09/17/25 19:54 Glucagon Inj 1 Mg Vial IM Q15MIN PRN BG <70, and no IV access Heparin Sodium (Porcine) 5,000 unit 09/22/25 21:00 09/25/25 21:09 Heparin Sod Inj 5000 Unit/Ml Vial SC 10/06/25 20:59 5,000 unit Q12HR CELESTINE Administration Hydromorphone HCl 1 mg 09/25/25 09:31 09/26/25 04:10 Hydromorphone Inj 2 Mg/Ml Vial IVP 09/30/25 09:30 1 mg Q4HR PRN Administration severe break through pain 7-10 Clindamycin/Sodium Chloride 300 mg in 50 mls @ 100 mls/hr 09/25/25 12:00 09/26/25 06:30 Cleocin/Ns Ivpb IV 10/02/25 11:59 Infused Q6HR CELESTINE Infusion Acetaminophen 1,000 mg in 100 mls @ 250 mls/hr 09/25/25 18:40 09/26/25 06:19 Ofirmev Inj IV 09/28/25 01:03 Infused Q6H CELESTINE Infusion Insulin Degludec 25 unit 09/25/25 21:00 09/25/25 21:06 Insulin Degludec 5 Unit/0.05 Ml (Per 5 Units) SC 10/25/25 20:59 25 unit HS CELESTINE Administration Insulin Human Lispro 0 unit 09/20/25 17:00 09/26/25 07:58 Insulin Lispro (Admelog) 1 Unit/0.01 Ml Unit SC 10/20/25 16:59 6 unit ACHS CELESTINE Administration Protocol Insulin Human Lispro 5 unit 09/22/25 17:00 09/26/25 07:59 Insulin Lispro (Admelog) 1 Unit/0.01 Ml Unit SC 10/22/25 16:59 5 unit AC CELESTINE Administration Multivitamins/Minerals 15 ml 09/22/25 09:00 09/25/25 10:00 Multivitamin 15 Ml Udc PO 10/22/25 08:59 Not Given QDAY [facility] Ondansetron HCl 4 mg 09/17/25 15:09 Ondansetron Inj 2 Mg/Ml Inj 2 Ml IVP 10/17/25 15:08 Q6H PRN NAUSEA OR VOMITING Protocol Oxycodone HCl 5 mg 09/25/25 09:33 09/26/25 03:06 Oxycodone Hcl 5 Mg Ir Tab PO 09/30/25 09:32 5 mg Q6HR PRN Administration moderate to severe pain 5- 8 Pantoprazole Sodium 40 mg 09/21/25 22:30 09/25/25 10:02 Pantoprazole Inj 40 Mg Vial IVP 10/21/25 22:29 40 mg QDAY CELESTINE Administration Sennosides 1 tab 09/22/25 21:00 09/25/25 21:00 Senna/Docusate Sod 1 Tab Tablet PO 10/22/25 20:59 Not Given HS CELESTINE Protocol Zinc Sulfate 220 mg 09/22/25 09:00 09/25/25 10:00 Zinc Sulfate 220 Mg Capsule PO 10/05/25 08:59 Not Given QDAY CELESTINE Plan Mr. Carrera is a 55 year old gentleman with a hx of T2DM- poorly controlled (a1c 10) with no active PCP managment who presented to the ed on 09/17 10 days after a fall from a ladder resulting in injury of his R foot and subsequent errythema and swelling, found to have R foot abscess concerning for nec fasc, s/p incision and drainage with Dr. Ruffin on 09/17, on IV broad spectrum antibiotics, with plan for likely subsequent incisions and drainages, and possible amputation.leukocytosis downtrending. possible bka today R foot abscess concerning for necrotizing fasciaitis s/p I and Dx3 elevated alk phos s/p I and D with Dr. Ruffin 09/17 pt presented 10 days after falling off of a ladder at work. he states that his foot got caught in the rung of the ladder and that he fell backwards and twisted and injured his ankle. he did not seek medical attention at that time. His pain and swelling worsened and he experienced chills which prompted him to present to the ED. suspect that R foot wound did not heal 2/2 poorly controlled DM and immuno compromised state and poor peripheral perfusion. leukocytosis is downtrending, lots of pus expressed during wound care on 09/19 s/p 2nd I and D with Dr Ruffin 09/20, wbc stable at 17 11/21 with wound vac and straw collored copius output. 09/23: Patient continues to have straw-colored/whitehead-colored output from wound VAC. Surrounding erythema and edema. Pain is well-controlled. 09/24: Whitehead-colored output from wound VAC continues. Surgery plans for debridement versus BKA on 09/25/2025. 09/25: s/p 3rd surgery today , i and d 09/26: reactive leuko Dx Foot CT: Extensive soft tissue infection with gas-forming organisms involving all of the soft tissues of the foot BLE DVT US : negative for DVT wound cultures prelim with Strep Dysgalataie, Ucx NGTD blood cultures ngtd @48 hours Abx Clindamycin 600mg IV q6hr (09/17- )d/c when no further debridement is indicated. Vancomycin 1gm IV pharmacy to dose (09/17-09/25) Zosyn 3.375 gm IV q8hr (09/17-09/24) Cefepime x1 in the ED Pain management Discontinued NORCO 5-325 q4hr prn for moderate to severe pain REcontinued IV Dilaudid 09/25/2025 1 mg IVP q4hrs APAP IV q6hr celestine oxycodone 5 mg q4hr prn for moderate to severe pain. Gabapentin 200 mg TID- pt reports that it makes him very tired but with minimal relief of his foot pain Plan - surgery consulted, appreciate recs, s/p incision and drainage by Dr. Ruffin on 09/17 and 09/20 wounds left open to promote drainage. Copius pus found during surgery could require multiple incisions, and will require wounds to remain open for adequate drainage. 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 pt states that he was diagnosed with dm in 2014, by his pcp and was not initiated on any medication therapies at that time. he was lost to follow up and has not been seen by a PCP since that time. pt states that he initiated dietary changes with intent to control his dm. Plan Lispro 7 units TID with meals scheduled (3-->5-->7) Degludec 30 units qhs (increased 7-->10-->15-->20-->25-->30) ISS step 3 ACHS Bedside glucose checks Diet, carb consistent diabetes education dietitian consulted, appreciate recs Normocytic Anemia Hemoglobin has been downtrending Plan Transfuse if hemoglobin less than 7 Constipation concern given constipating medications the patient is on, opioids for pain 09/25 pt had BM - senna and docusate qd Mild hyponatremia Mild hypochloremia Hypophosphatemia (Resolved) Corrected sodium 135 based on current glucose Plan: Monitor for now Dispo: Med tele,npo s/p third washout of R foot abscess with strep dysgalactae on IV broad spectrum abx, WBC reactive elevation to 17. Considering BKA. Diet:Carb consistent Bowel Reg: senna/docusate scheduled, given opioids given for pain VTE ppx: Heparin GI ppx: protonix qd 40 iv Code status: FULL Plan discussed with my attending Dr. Steinberg and my senior Dr. Patel Gordon MD PGY1 Attending Provider Attestation/Addendum I have seen and examined the patient. I was physically present for the [place] portions of the services provided including history, physical exam, diagnosis, treatment plans and orders. I agree with assessment and plan of care as documented by residents. Patient seen and examined at bedside this morning. Appears comfortable and denies any new complaints. Pain has been well-controlled with analgesic regimen. Changed IV Dilaudid to IV ketorolac. General surgery has been following closely, plan to change dressing on Wednesday. Even though this this note was carefully revised there may still be minor errors in regional sales leader due to voice recognition software. Juventino Steinberg MD
[2025-09-26 09:55] LABS: Sed Rate (ESR) 44 mm/hr (0-20)
--- NOTE | 2025-09-26 10:06 | ESPR_ITS ---
Documentation for date of: 09/26/25 Subjective Subjective Brief History: 55M with DMII not on medications (pt states he was told he had preDM but had not followed up) presenting with right foot pain, redness and fatigue. Pt states he fell off a ladder on 09/05 and since then noted worsening pain and appearance of his right foot as well as fatigue. In ER he is found to have WBC 25, A1c [address] showing extensive gas and abscess of R foot PMH: DMII (not on meds) PSHx: None Meds: None Allergies: NKDA Social hx: Nonsmoker Narrative: Yesterday pt requested debridement as he is hoping to avoid amputation. Pain better controlled today, WBC up to 17 but remaining afebrile, finger sticks 200s-370 Exam Vital Signs Temp Pulse Resp BP Pulse Ox O2 Del Method O2 Flow Rate 97.0 F 92 17 100/74 97 Room Air 4 09/26/25 07:39 09/26/25 08:00 09/26/25 07:39 09/26/25 07:39 09/26/25 07:39 09/26/25 07:39 09/25/25 16:00 Constitutional Constitutional: no acute distress Routine Respiratory Exam Respiratory: Present no resp distress Routine Extremities Exam Comments: right foot lateral and medial wounds with necrotic tissue at base, dorsum of foot somewhat dusky Results Results: Laboratory Laboratory results: results reviewed Assessment & Plan Plan 55M with DMII not on meds (A1c 10) presenting with extensive right foot abscess, no signs of osteomyelitis s/p I&D 09/17 and debridement 09/20 and 09/26, with ongoing necrotic tissue. Again today I along with our local operator explained to pt that he continues to have extensive necrotic tissue, now extending to the level of bone, despite having multiple debridements and regular wound care. The concern is that his foot may not ever fully heal and/or if the wounds themselves were to heal, the involvement of his tendons may mean he is not able to have full function of the foot. Pt is still hoping for salvage so he is not ready to pursue amputation for now but will consider it. Dressing change today with iodosorb, will leave in place until 09/28 and at that time I will change it Monitor finger sticks Continue abx PROCEDURES: Procedures Excisional debridement of right foot wounds
[2025-09-26] MEDS: CADEXOMER IODINE GEL 40 GM TUBE TOP (10:16)
[2025-09-26 10:19] LABS: C-Reactive Protein 21.1 mg/dL (0.0-0.9)
[2025-09-26] MEDS: KETOROLAC INJ 30 MG/ML VIAL IVP ×2 (12:12→20:38)
[2025-09-26] MEDS: INSULIN LISPRO (AdmeLOG) 1 UNIT/0.01 ML UNIT 7 UNIT SC ×2 (12:12→17:22)
--- NOTE | 2025-09-26 15:08 | PC.SS ---
rounding note: Gen surgeon will meet with patient again on Wednesday to discuss BKA. If patient is agreeable they will have surgery and he will need further PT and wound care. If patient declines, he will be discharged to follow up with o/p wound clinic and follow up with gen surgery.
[2025-09-26] MEDS: INSULIN DEGLUDEC 5 UNIT/0.05 ML (PER 5 UNITS) 30 UNIT SC (20:57)
[2025-09-27] VITALS (8 sets, daily range): BP systolic 114–135; BP diastolic 70–79; PULSE 73–92; RESP 16–17; TEMP 36.1–36.2; O2SAT 93–99
[2025-09-27] MEDS: ACETAMINOPHEN IVPB 1,000 MG/100 ML VIAL 250 MG IV ×4 (00:29→18:36)
[2025-09-27] MEDS: KETOROLAC INJ 30 MG/ML VIAL IVP ×4 (02:33→22:23)
[2025-09-27] MEDS: oxyCODONE HCL 5 MG IR TAB PO ×3 (05:20→17:50)
[2025-09-27] MEDS: GABAPENTIN 100 MG CAPSULE 200 MG PO ×3 (05:21→21:58)
[2025-09-27] MEDS: CLINDAMYCIN/NS 300MG IVPB 300 MG/50 ML BAG 100 MG IV ×3 (05:23→17:50)
[2025-09-27 06:00] LABS: Basophils # (Auto) 0.0 Thou/mm3 (0.0-0.2); Basophils % (Auto) 0 % (0-2.5); Eosinophils # (Auto) 0.2 Thou/mm3 (0.0-0.5); Eosinophils % (Auto) 1 % (0-10); Hematocrit 24.0 % (41.0-53.0); Immature Granulocytes Auto 0.18 Thou/mm3 (0.00-0.00); Lymphocytes # (Auto) 2.1 Thou/mm3 (1.0-4.8); Lymphocytes % (Auto) 18 % (10-50); Mean Corpuscular HGB Conc 32.5 g/dl (31.0-37.0); Mean Corpuscular Hemoglobin 29.1 pg (25.0-35.0); Mean Corpuscular Volume 90 fL (80-100); Monocytes # (Auto) 0.6 Thou/mm3 (0.0-0.8); Monocytes % (Auto) 5 % (0-12); Neutrophils # (Auto) 8.4 Thou/mm3 (1.8-7.7); Neutrophils % (Auto) 73 % (37-80); Nucleated Red Blood Cell # 0.00 Thou/mm3 (0.00-0.00); Nucleated Red Blood Cell % 0 /100 WBC (0); Platelet Count 936 Thou/mm3 (140-440); RDW Standard Deviation 48.1 fL (35.1-43.9); Red Blood Count 2.68 Miln/mm3 (4.50-5.90); White Blood Count 11.5 Thou/mm3 (3.8-10.6)
[2025-09-27 06:03] LABS: Hemoglobin 7.8 g/dL (13.5-16.0)
[2025-09-27 06:20] LABS: Alanine Aminotransferase 22 U/L (10-49); Albumin, Serum 3.1 gm/dL (3.5-5.0); Albumin/Globulin Ratio 0.7 (1.2-2.2); Alkaline Phosphatase 172 U/L (46-116); Anion Gap 9 (7-16); Aspartate Amino Transferase 27 U/L (0-34); BUN/Creatinine Ratio 18 Ratio (12-20); Bilirubin,Total 0.3 mg/dL (0.3-1.2); Blood Urea Nitrogen 22 mg/dL (9-23); Calcium 8.3 mg/dL (8.3-10.6); Calcium (Corrected) 9.0 mg/dL (8.5-10.1); Carbon Dioxide 27.7 mMol/L (20.0-31.0); Chloride 102 mMol/L (98-107); Creatinine (Component) 1.2 mg/dL (0.6-1.3); Estimated Creatinine Clearance 68.1 mL/min (>60); Globulin 4.2 gm/dL (2.3-3.5); Glucose 314 mg/dL (74-106); Osmolality,Calculated 292 (275-295); Potassium 4.4 mMol/L (3.4-5.1); Sodium 139 mMol/L (136-145); Total Protein 7.3 gm/dL (5.7-8.2); eGFR > 60 See Note
[2025-09-27] MEDS: INSULIN LISPRO (AdmeLOG) 1 UNIT/0.01 ML UNIT SC ×3 (07:38→22:13)
[2025-09-27] MEDS: INSULIN LISPRO (AdmeLOG) 1 UNIT/0.01 ML UNIT 7 UNIT SC (07:40)
--- NOTE | 2025-09-27 07:40 | ESPR_ITS ---
Documentation for date of: 09/27/25 Subjective Subjective Interval history: patient seen and examined at bedside Patient is thinking through his decision to proceed with BKA. He is starting to accept that he will likely proceed with the surgery. pt waiting to make final decision on Wednesday WBC downtrending 11 from 17, likely reactive post op. pain is well controlled on current regimen CMP with elevated cr 1.2 from 0.8, giving IV fluids, and encourage PO intake, some c/f elevation 2/2 to toradol for pain, will get pm renal panel and reasses. Exam Vital Signs Temp Pulse Resp BP Pulse Ox O2 Del Method O2 Flow Rate 97.0 F 78 17 114/78 99 Room Air 4 09/27/25 04:00 09/27/25 04:00 09/27/25 04:00 09/27/25 04:00 09/27/25 04:00 09/27/25 04:00 09/25/25 16:00 Narrative Exam General: Awake and in no acute distress. Conversational and non-toxic appearing. Neurologic: GCS 15. Alert and oriented x3, no gross neurological deficit, and patient able to move all 4 extremities. HEENT: Normocephalic, atraumatic, mucous membranes moist. Pupils reactive to light. Heart: Regular rate and rhythm, normal S1 and S2, no murmurs. Lungs: Clear to auscultation bilaterally with no wheezing or crackles. Abdomen: Soft, nondistended, nontender, positive bowel sounds. No guarding or rebound tenderness. Extremities: Right foot has circumferential wounds, foot is wraped in kerlix status post I&D with Dr. Webster on 09/25. Skin: Warm. Dry. No rash or ecchymoses. Objective Labs 09/27/25 04:35 09/27/25 04:35 Labs: Laboratory Results - last 24 hr 09/26/25 09/27/25 05:00 04:35 WBC 11.5 H D RBC 2.68 L Hgb 7.8 L Hct 24.0 L MCV 90 MCH 29.1 MCHC 32.5 RDW Std Deviation 48.1 H Plt Count 936 H D Neut % (Auto) 73 Lymph % (Auto) 18 [place] % (Auto) 5 Eos % (Auto) 1 Baso % (Auto) 0 Neut # (Auto) 8.4 H Lymph # (Auto) 2.1 [place] # (Auto) 0.6 Eos # (Auto) 0.2 Baso # (Auto) 0.0 Immature Gran # (Auto) 0.18 H Absolute Nucleated RBC 0.00 Immature Gran % 2 H Nucleated RBC % 0 ESR 44 H Sodium 139 Potassium 4.4 Chloride 102 Carbon Dioxide 27.7 Anion Gap 9 BUN 22 Creatinine 1.2 Estim Creat Clear Calc 68.1 eGFR > 60 BUN/Creatinine Ratio 18 Glucose 314 H Calculated Osmolality 292 Calcium 8.3 Corrected Calcium 9.0 Total Bilirubin 0.3 AST 27 ALT 22 Alkaline Phosphatase 172 H C-Reactive Prot, Quant 21.1 H Total Protein 7.3 Albumin 3.1 L D Globulin 4.2 H Albumin/Globulin Ratio 0.7 L ABG Interpretation ABG results: 09/17/25 09:45 VBG pH 7.48 VBG pCO2 41 VBG pO2 46 VBG Base Excess 6 H Quality Measures Quality Measures VTE prophylaxis Assessment & Plan Assessment Current Active Medications: Generic Name Dose Route Start Last Admin Trade Name Freq PRN Reason Stop Dose Admin Ascorbic Acid 500 mg 09/21/25 21:00 09/26/25 21:02 Ascorbic Acid 250 Mg Tablet PO 10/21/25 20:59 500 mg BID CELESTINE Administration Cadexomer Iodine 0 gm 09/28/25 09:00 Cadexomer Iodine Gel 40 Gm Tube TOP 10/05/25 08:59 Q2D CELESTINE Dextrose 25 ml 09/17/25 19:54 Dextrose 50%-Water Inj 50 Ml Syringe IV 10/17/25 19:53 Q15MIN PRN BG 50-70 responsive npo pt Dextrose 50 ml 09/17/25 19:54 Dextrose 50%-Water Inj 50 Ml Syringe IV 10/17/25 19:53 Q15MIN PRN BG <50 OR BG <70 & pt unresponsive Gabapentin 200 mg 09/18/25 14:00 09/27/25 05:21 Gabapentin 100 Mg Capsule PO 10/18/25 13:59 200 mg TID CELESTINE Administration Glucagon 1 mg 09/17/25 19:54 Glucagon Inj 1 Mg Vial IM Q15MIN PRN BG <70, and no IV access Heparin Sodium (Porcine) 5,000 unit 09/22/25 21:00 09/26/25 21:00 Heparin Sod Inj 5000 Unit/Ml Vial SC 10/06/25 20:59 5,000 unit Q12HR CELESTINE Administration Clindamycin/Sodium Chloride 300 mg in 50 mls @ 100 mls/hr 09/25/25 12:00 09/27/25 05:53 Cleocin/Ns Ivpb IV 10/02/25 11:59 Infused Q6HR CELESTINE Infusion Acetaminophen 1,000 mg in 100 mls @ 250 mls/hr 09/25/25 18:40 09/27/25 06:14 Ofirmev Inj IV 09/28/25 01:03 250 mls/hr Q6H CELESTINE Administration Insulin Degludec 30 unit 09/26/25 21:00 09/26/25 20:57 Insulin Degludec 5 Unit/0.05 Ml (Per 5 Units) SC 10/26/25 20:59 30 unit HS CELESTINE Administration Insulin Human Lispro 0 unit 09/20/25 17:00 09/26/25 20:58 Insulin Lispro (Admelog) 1 Unit/0.01 Ml Unit SC 10/20/25 16:59 6 unit ACHS CELESTINE Administration Protocol Insulin Human Lispro 7 unit 09/26/25 11:30 09/26/25 17:22 Insulin Lispro (Admelog) 1 Unit/0.01 Ml Unit SC 10/26/25 11:29 7 unit AC CELESTINE Administration Ketorolac Tromethamine 30 mg 09/26/25 11:10 09/27/25 02:33 Ketorolac Inj 30 Mg/Ml Vial IVP 10/01/25 11:09 30 mg Q6HR PRN Administration for severe pain 7-10 Protocol Multivitamins/Minerals 15 ml 09/22/25 09:00 09/26/25 08:13 Multivitamin 15 Ml Udc PO 10/22/25 08:59 15 ml QDAY CELESTINE Administration Ondansetron HCl 4 mg 09/17/25 15:09 Ondansetron Inj 2 Mg/Ml Inj 2 Ml IVP 10/17/25 15:08 Q6H PRN NAUSEA OR VOMITING Protocol Oxycodone HCl 5 mg 09/25/25 09:33 09/27/25 05:20 Oxycodone Hcl 5 Mg Ir Tab PO 09/30/25 09:32 5 mg Q6HR PRN Administration moderate to severe pain 5- 8 Protocol Pantoprazole Sodium 40 mg 09/21/25 22:30 09/26/25 08:13 Pantoprazole Inj 40 Mg Vial IVP 10/21/25 22:29 40 mg QDAY CELESTINE Administration Sennosides 1 tab 09/22/25 21:00 09/26/25 22:04 Senna/Docusate Sod 1 Tab Tablet PO 10/22/25 20:59 Not Given HS [facility] Protocol Zinc Sulfate 220 mg 09/22/25 09:00 09/26/25 08:13 Zinc Sulfate 220 Mg Capsule PO 10/05/25 08:59 220 mg QDAY CELESTINE Administration Plan Mr. Carrera is a 55 year old gentleman with a hx of T2DM- poorly controlled (a1c 10) with no active PCP managment who presented to the ed on 09/17 10 days after a fall from a ladder resulting in injury of his R foot and subsequent errythema and swelling, found to have R foot abscess concerning for nec fasc, s/p incision and drainage with Dr. Ruffin on 09/17, on IV broad spectrum antibiotics, with plan for likely subsequent incisions and drainages, and possible amputation.leukocytosis downtrending. possible bka 10/01 (pt is waiting to decide) R foot abscess concerning for necrotizing fasciaitis s/p I and Dx3 elevated alk phos - downtrending Thrombocytosis s/p I and D with Dr. Ruffin 09/17 pt presented 10 days after falling off of a ladder at work. he states that his foot got caught in the rung of the ladder and that he fell backwards and twisted and injured his ankle. he did not seek medical attention at that time. His pain and swelling worsened and he experienced chills which prompted him to present to the ED. suspect that R foot wound did not heal 2/2 poorly controlled DM and immuno compromised state and poor peripheral perfusion. leukocytosis is downtrending, lots of pus expressed during wound care on 09/19 s/p 2nd I and D with Dr Ruffin 09/20, wbc stable at 17 09/21 with wound vac and straw collored copius output. 09/23: Patient continues to have straw-colored/whitehead-colored output from wound VAC. Surrounding erythema and edema. Pain is well-controlled. 09/24: Whitehead-colored output from wound VAC continues. Surgery plans for debridement versus BKA on 09/25/2025. 09/25: s/p 3rd surgery today , i and d 09/26: reactive leuko Dx Foot CT: Extensive soft tissue infection with gas-forming organisms involving all of the soft tissues of the foot BLE DVT US : negative for DVT wound cultures prelim with Strep Dysgalataie, Ucx NGTD blood cultures ngtd @48 hours Abx Clindamycin 600mg IV q6hr (09/17- )d/c when no further debridement is indicated. Vancomycin 1gm IV pharmacy to dose (09/17-09/25) Zosyn 3.375 gm IV q8hr (09/17-09/24) Cefepime x1 in the ED Pain management APAP IV q6hr celestine oxycodone 5 mg q4hr prn for moderate to severe pain. Gabapentin 200 mg TID- pt reports that it makes him very tired but with minimal relief of his foot pain Ketoralac 30 mg IV q6hr prn- CTM renal function Plan - surgery consulted, appreciate recs, s/p incision and drainage by Dr. Ruffin on 09/17 , 09/20, and 09/25 wounds left open to promote drainage. Copius pus found during surgery, BKA likely on Monday 10/01 could require multiple incisions, and will require wounds to remain open for adequate drainage. I also informed pt that depending on the extent of the infection and his recovery in the coming days he may go on to require amputation - CTM leukocytosis , CRP, ESR, - Consider repeat imaging, per surgery recommendations - incentive spirometry for pna ppx - wound care consulted, appreciate recs - Vit C 500mg BID - Zinc Sulfate 220mg qd for 14 days (09/22- 10/05 end date ) - multivitamin 15 ml QD AYSE - likely prerenal vs intrarenal pt renal function has been ok thoughout this admission, pt was started on ketoralac for pain management and on 09/27, has small ayse with Cr 1.2 with a baseline of 0.8. Plan Encourage PO intake IV LR 95cc/hr 2 bags PM renal panel at 1400 T2DM- poorly controlled A1c 10.7 on admission. pt states that he was diagnosed with dm in 2014, by his pcp and was not initiated on any medication therapies at that time. he was lost to follow up and has not been seen by a PCP since that time. pt states that he initiated dietary changes with intent to control his dm. Plan Lispro 10 units TID with meals scheduled (3-->5-->7-->10) Degludec 36 units qhs (increased 7-->10-->15-->20-->25-->30-->36) ISS step 3 ACHS Bedside glucose checks Diet, carb consistent diabetes education dietitian consulted, appreciate recs Normocytic Anemia Hemoglobin has been downtrending, likely post surgical Plan Transfuse if hemoglobin less than 7 Constipation concern given constipating medications the patient is on, opioids for pain patient continues to have regular BM, - CTM - senna and docusate qd Mild hyponatremia - resolved Mild hypochloremia - resolved Hypophosphatemia (Resolved) Corrected sodium 135 based on current glucose Plan: Monitor for now Dispo: Med tele, WBC downtrending 11 from 17 (reactive), remains afebrile and well appearing. Considering BKA, cont iv abx Diet:Carb consistent Bowel Reg: senna/docusate scheduled, given opioids given for pain VTE ppx: Heparin GI ppx: protonix qd 40 iv Code status: FULL Plan discussed with my attending Dr. Maryan Gordon MD PGY1 Attending Provider Attestation/Addendum I have seen and examined the patient. I was physically present for the [place] portions of the services provided including history, physical exam, diagnosis, treatment plans and orders. I agree with assessment and plan of care as documented by residents. Patient seen and examined at bedside this morning. Appears comfortable and denies new complaints. Pain has been well-controlled with current analgesic regimen. General surgery following closely, appreciate recommendations. Continues to be on IV clindamycin. Wound care following. Even though this this note was carefully revised there may still be minor errors in box spring maker due to voice recognition software. Juventino Steinberg MD
[2025-09-27] MEDS: RINGERS LACTATED 1000 ML 1,000 ML 95 ML IV ×2 (08:39→22:01)
[2025-09-27] MEDS: HEPARIN SOD INJ 5000 UNIT/ML VIAL SC ×2 (08:42→22:00)
[2025-09-27] MEDS: ZINC SULFATE 220 MG CAPSULE PO (08:44)
[2025-09-27] MEDS: ASCORBIC ACID 250 MG TABLET 500 MG PO ×2 (08:44→21:58)
[2025-09-27] MEDS: MULTIVITAMIN 15 ML UDC PO (08:44)
[2025-09-27] MEDS: INSULIN LISPRO (AdmeLOG) 1 UNIT/0.01 ML UNIT 10 UNIT SC (11:41)
[2025-09-27 14:41] LABS: Albumin, Serum 3.4 gm/dL (3.5-5.0); Anion Gap 12 (7-16); BUN/Creatinine Ratio 24 Ratio (12-20); Blood Urea Nitrogen 22 mg/dL (9-23); Calcium 8.3 mg/dL (8.3-10.6); Calcium (Corrected) 8.8 mg/dL (8.5-10.1); Carbon Dioxide 25.3 mMol/L (20.0-31.0); Chloride 102 mMol/L (98-107); Creatinine (Component) 0.9 mg/dL (0.6-1.3); Estimated Creatinine Clearance 90.8 mL/min (>60); Glucose 128 mg/dL (74-106); Osmolality,Calculated 282 (275-295); Phosphorous 3.2 mg/dL (2.4-5.1); Potassium 3.9 mMol/L (3.4-5.1); Sodium 139 mMol/L (136-145); eGFR > 60 See Note
[2025-09-27] MEDS: SENNA/DOCUSATE SOD 1 TAB TABLET PO (21:58)
[2025-09-27] MEDS: INSULIN DEGLUDEC 5 UNIT/0.05 ML (PER 5 UNITS) 36 UNIT SC (22:13)
[2025-09-28] VITALS (7 sets, daily range): BP systolic 115–144; BP diastolic 66–78; PULSE 76–87; RESP 17–20; TEMP 36.4–36.8; O2SAT 95–99; BMI 25.9
[2025-09-28] MEDS: CLINDAMYCIN/NS 300MG IVPB 300 MG/50 ML BAG 100 MG IV ×5 (00:06→23:27)
[2025-09-28] MEDS: ACETAMINOPHEN IVPB 1,000 MG/100 ML VIAL 250 MG IV ×3 (01:03→17:56)
[2025-09-28] MEDS: KETOROLAC INJ 30 MG/ML VIAL IVP ×4 (04:32→22:40)
[2025-09-28] MEDS: GABAPENTIN 100 MG CAPSULE 200 MG PO ×3 (05:21→21:28)
[2025-09-28] MEDS: oxyCODONE HCL 5 MG IR TAB PO ×3 (05:21→18:46)
[2025-09-28 05:54] LABS: Basophils # (Auto) 0.1 Thou/mm3 (0.0-0.2); Basophils % (Auto) 1 % (0-2.5); Eosinophils # (Auto) 0.2 Thou/mm3 (0.0-0.5); Eosinophils % (Auto) 1 % (0-10); Hematocrit 24.1 % (41.0-53.0); Immature Granulocytes Auto 0.21 Thou/mm3 (0.00-0.00); Lymphocytes # (Auto) 1.9 Thou/mm3 (1.0-4.8); Lymphocytes % (Auto) 17 % (10-50); Mean Corpuscular HGB Conc 32.0 g/dl (31.0-37.0); Mean Corpuscular Hemoglobin 28.8 pg (25.0-35.0); Mean Corpuscular Volume 90 fL (80-100); Monocytes # (Auto) 0.6 Thou/mm3 (0.0-0.8); Monocytes % (Auto) 5 % (0-12); Neutrophils # (Auto) 8.2 Thou/mm3 (1.8-7.7); Neutrophils % (Auto) 74 % (37-80); Nucleated Red Blood Cell # 0.00 Thou/mm3 (0.00-0.00); Nucleated Red Blood Cell % 0 /100 WBC (0); Platelet Count 867 Thou/mm3 (140-440); RDW Standard Deviation 47.7 fL (35.1-43.9); Red Blood Count 2.67 Miln/mm3 (4.50-5.90); White Blood Count 11.1 Thou/mm3 (3.8-10.6)
[2025-09-28 05:57] LABS: Hemoglobin 7.7 g/dL (13.5-16.0)
[2025-09-28 06:29] LABS: Alanine Aminotransferase 21 U/L (10-49); Albumin, Serum 3.1 gm/dL (3.5-5.0); Albumin/Globulin Ratio 0.7 (1.2-2.2); Alkaline Phosphatase 164 U/L (46-116); Anion Gap 10 (7-16); Aspartate Amino Transferase 26 U/L (0-34); BUN/Creatinine Ratio 21 Ratio (12-20); Bilirubin,Total 0.3 mg/dL (0.3-1.2); Blood Urea Nitrogen 17 mg/dL (9-23); Calcium 8.3 mg/dL (8.3-10.6); Calcium (Corrected) 9.0 mg/dL (8.5-10.1); Carbon Dioxide 28.1 mMol/L (20.0-31.0); Chloride 102 mMol/L (98-107); Creatinine (Component) 0.8 mg/dL (0.6-1.3); Estimated Creatinine Clearance 102.1 mL/min (>60); Globulin 4.4 gm/dL (2.3-3.5); Glucose 192 mg/dL (74-106); Magnesium 1.8 mg/dL (1.6-2.6); Osmolality,Calculated 285 (275-295); Phosphorous 3.2 mg/dL (2.4-5.1); Potassium 4.1 mMol/L (3.4-5.1); Sodium 140 mMol/L (136-145); Total Protein 7.5 gm/dL (5.7-8.2); eGFR > 60 See Note
[2025-09-28] MEDS: INSULIN LISPRO (AdmeLOG) 1 UNIT/0.01 ML UNIT SC ×3 (07:40→20:31)
[2025-09-28] MEDS: INSULIN LISPRO (AdmeLOG) 1 UNIT/0.01 ML UNIT 10 UNIT SC ×3 (07:40→17:44)
[2025-09-28] MEDS: Magnesium Sulfate 4 GM Ivpb 4 GM/50 ML BAG IV (07:56)
[2025-09-28] MEDS: ASCORBIC ACID 250 MG TABLET 500 MG PO ×2 (08:02→20:30)
[2025-09-28] MEDS: ZINC SULFATE 220 MG CAPSULE PO (08:02)
[2025-09-28] MEDS: MULTIVITAMIN 15 ML UDC PO (08:02)
--- NOTE | 2025-09-28 10:45 | CHAP ---
Patient was visited by the Spiritual Care Volunteer who prayed for them. (Volunteer was in the hospital from 09:30-10:45)
--- NOTE | 2025-09-28 10:47 | PC.SS ---
rounding note: Pending Dr Ruffin's recommendation. Patient to make his decision today regarding BKA. If he chooses not to have amputation he will be discharged home today and follow up o/p services. If he agrees to amputation patient will stay for pending surgery and further rehab.
--- NOTE | 2025-09-28 14:00 | PC.NURSE ---
Dr. Ruffin in to see pt. Dressing changed by
--- NOTE | 2025-09-28 14:09 | PD.RESPRO ---
Documentation for date of: 09/28/25 Subjective Subjective Interval history: patient seen and examined at bedside he reports having a difficult night because he was not woken up overnight to get his pain medication and had extreme pain early this morning wound care today with Dr. Ruffin, pending decision to BKA or follow up outpatient. Exam Vital Signs Temp Pulse Resp BP Pulse Ox O2 Del Method O2 Flow Rate 98.1 F 85 18 137/75 H 95 Room Air 4 09/28/25 07:47 09/28/25 07:47 09/28/25 07:47 09/28/25 07:47 09/28/25 07:47 09/28/25 07:47 09/25/25 16:00 Narrative Exam General: Awake and in no acute distress. Conversational and non-toxic appearing. Neurologic: GCS 15. Alert and oriented x3, no gross neurological deficit, and patient able to move all 4 extremities. HEENT: Normocephalic, atraumatic, mucous membranes moist. Pupils reactive to light. Heart: Regular rate and rhythm, normal S1 and S2, no murmurs. Lungs: Clear to auscultation bilaterally with no wheezing or crackles. Abdomen: Soft, nondistended, nontender, positive bowel sounds. No guarding or rebound tenderness. Extremities: Right foot has circumferential wounds, foot is wraped in kerlix status post I&D with Dr. Webster on 09/25. Skin: Warm. Dry. No rash or ecchymoses. Objective Labs 09/28/25 04:50 09/28/25 04:50 Labs: Laboratory Results - last 24 hr 09/25/25 09/27/25 09/28/25 08:26 14:05 04:50 WBC 11.1 H RBC 2.67 L Hgb 7.7 L Hct 24.1 L MCV 90 MCH 28.8 MCHC 32.0 RDW Std Deviation 47.7 H Plt Count 867 H D Neut % (Auto) 74 Lymph % (Auto) 17 [place] % (Auto) 5 Eos % (Auto) 1 Baso % (Auto) 1 Neut # (Auto) 8.2 H Lymph # (Auto) 1.9 [place] # (Auto) 0.6 Eos # (Auto) 0.2 Baso # (Auto) 0.1 Immature Gran # (Auto) 0.21 H Absolute Nucleated RBC 0.00 Immature Gran % 2 H Nucleated RBC % 0 Sodium 139 140 Potassium 3.9 D 4.1 Chloride 102 102 Carbon Dioxide 25.3 28.1 Anion Gap 12 10 BUN 22 17 Creatinine 0.9 0.8 Estim Creat Clear Calc 90.8 102.1 eGFR > 60 > 60 BUN/Creatinine Ratio 24 H 21 H Glucose 128 H D 192 H D Calculated Osmolality 282 285 Calcium 8.3 8.3 Corrected Calcium 8.8 9.0 Phosphorus 3.2 3.2 Magnesium 1.8 Total Bilirubin 0.3 AST 26 ALT 21 Alkaline Phosphatase 164 H Total Protein 7.5 Albumin 3.4 L 3.1 L Globulin 4.4 H Albumin/Globulin Ratio 0.7 L Crossmatch See Detail ABG Interpretation ABG results: 09/17/25 09:45 VBG pH 7.48 VBG pCO2 41 VBG pO2 46 VBG Base Excess 6 H Quality Measures Quality Measures VTE prophylaxis Assessment & Plan Assessment Current Active Medications: Generic Name Dose Route Start Last Admin Trade Name Freq PRN Reason Stop Dose Admin Ascorbic Acid 500 mg 09/21/25 21:00 09/28/25 08:02 Ascorbic Acid 250 Mg Tablet PO 10/21/25 20:59 500 mg BID CELESTINE Administration Cadexomer Iodine 0 gm 09/28/25 09:00 09/28/25 14:05 Cadexomer Iodine Gel 40 Gm Tube TOP 10/05/25 08:59 Not Given Q2D CELESTINE Dextrose 25 ml 09/17/25 19:54 Dextrose 50%-Water Inj 50 Ml Syringe IV 10/17/25 19:53 Q15MIN PRN BG 50-70 responsive npo pt Dextrose 50 ml 09/17/25 19:54 Dextrose 50%-Water Inj 50 Ml Syringe IV 10/17/25 19:53 Q15MIN PRN BG <50 OR BG <70 & pt unresponsive Gabapentin 200 mg 09/18/25 14:00 09/28/25 13:40 Gabapentin 100 Mg Capsule PO 10/18/25 13:59 200 mg TID CELESTINE Administration Glucagon 1 mg 09/17/25 19:54 Glucagon Inj 1 Mg Vial IM Q15MIN PRN BG <70, and no IV access Heparin Sodium (Porcine) 5,000 unit 09/22/25 21:00 09/28/25 08:56 Heparin Sod Inj 5000 Unit/Ml Vial SC 10/06/25 20:59 Not Given Q12HR CELESTINE Clindamycin/Sodium Chloride 300 mg in 50 mls @ 100 mls/hr 09/25/25 12:00 09/28/25 12:04 Cleocin/Ns Ivpb IV 10/02/25 11:59 100 mls/hr Q6HR CELESTINE Administration Insulin Degludec 36 unit 09/27/25 21:00 09/27/25 22:13 Insulin Degludec 5 Unit/0.05 Ml (Per 5 Units) SC 10/27/25 20:59 36 unit HS CELESTINE Administration Insulin Human Lispro 0 unit 09/20/25 17:00 09/28/25 12:03 Insulin Lispro (Admelog) 1 Unit/0.01 Ml Unit SC 10/20/25 16:59 Not Given ACHS CELESTINE Protocol Insulin Human Lispro 10 unit 09/27/25 11:30 09/28/25 12:02 Insulin Lispro (Admelog) 1 Unit/0.01 Ml Unit SC 10/27/25 11:29 10 unit AC CELESTINE Administration Ketorolac Tromethamine 30 mg 09/26/25 11:10 09/28/25 10:39 Ketorolac Inj 30 Mg/Ml Vial IVP 10/01/25 11:09 30 mg Q6HR PRN Administration for severe pain 7-10 Protocol Multivitamins/Minerals 15 ml 09/22/25 09:00 09/28/25 08:02 Multivitamin 15 Ml Udc PO 10/22/25 08:59 15 ml QDAY CELESTINE Administration Ondansetron HCl 4 mg 09/17/25 15:09 Ondansetron Inj 2 Mg/Ml Inj 2 Ml IVP 10/17/25 15:08 Q6H PRN NAUSEA OR VOMITING Protocol Oxycodone HCl 5 mg 09/25/25 09:33 09/28/25 11:55 Oxycodone Hcl 5 Mg Ir Tab PO 09/30/25 09:32 5 mg Q6HR PRN Administration moderate to severe pain 5- 8 Protocol Pantoprazole Sodium 40 mg 09/21/25 22:30 09/28/25 08:03 Pantoprazole Inj 40 Mg Vial IVP 10/21/25 22:29 40 mg QDAY CELESTINE Administration Sennosides 1 tab 09/22/25 21:00 09/27/25 21:58 Senna/Docusate Sod 1 Tab Tablet PO 10/22/25 20:59 1 tab HS CELESTINE Administration Protocol Zinc Sulfate 220 mg 09/22/25 09:00 09/28/25 08:02 Zinc Sulfate 220 Mg Capsule PO 10/05/25 08:59 220 mg QDAY CELESTINE Administration Plan Mr. Carrera is a 55 year old gentleman with a hx of T2DM- poorly controlled (a1c 10) with no active PCP managment who presented to the ed on 09/17 10 days after a fall from a ladder resulting in injury of his R foot and subsequent errythema and swelling, found to have R foot abscess concerning for nec fasc, s/p incision and drainage with Dr. Ruffin on 09/17, on IV broad spectrum antibiotics, with plan for likely subsequent incisions and drainages, and possible amputation.leukocytosis downtrending. possible bka, patient to discuss with surgeon today. R foot abscess s/p I and Dx3 elevated alk phos - downtrending Thrombocytosis s/p I and D with Dr. Ruffin 09/17 pt presented 10 days after falling off of a ladder at work. he states that his foot got caught in the rung of the ladder and that he fell backwards and twisted and injured his ankle. he did not seek medical attention at that time. His pain and swelling worsened and he experienced chills which prompted him to present to the ED. suspect that R foot wound did not heal 2/2 poorly controlled DM and immuno compromised state and poor peripheral perfusion. leukocytosis is downtrending, lots of pus expressed during wound care on 09/19 s/p 2nd I and D with Dr Ruffin 09/20, wbc stable at 17 09/21 with wound vac and straw collored copius output. 09/23: Patient continues to have straw-colored/whitehead-colored output from wound VAC. Surrounding erythema and edema. Pain is well-controlled. 09/24: Whitehead-colored output from wound VAC continues. Surgery plans for debridement versus BKA on 09/25/2025. 09/25: s/p 3rd surgery today , i and d 09/26: reactive leuko 09/28: wound care with Alber Ruffin Foot CT: Extensive soft tissue infection with gas-forming organisms involving all of the soft tissues of the foot Abx Clindamycin 300mg IV q6hr (09/25- )d/c when no further debridement is indicated. Pain management APAP IV q6hr celestine oxycodone 5 mg q4hr prn for moderate to severe pain. Gabapentin 200 mg TID- pt reports that it makes him very tired but with minimal relief of his foot pain Ketoralac 30 mg IV q6hr prn- CTM renal function Plan - surgery consulted, appreciate recs,s/p [address] Ruffin, JACKIE likely on Monday 10/01 - CTM leukocytosis , CRP, ESR, - incentive spirometry for pna ppx - wound care consulted, appreciate recs - Vit C 500mg BID - Zinc Sulfate 220mg qd for 14 days (09/22- 10/05 end date ) - multivitamin 15 ml QD AYSE - likely prerenal vs intrarenal - resolved Plan Encourage PO intake T2DM- poorly controlled A1c 10.7 on admission. pt states that he was diagnosed with dm in 2014, by his pcp and was not initiated on any medication therapies at that time. he was lost to follow up and has not been seen by a PCP since that time. pt states that he initiated dietary changes with intent to control his dm. Plan Lispro 10 units TID with meals scheduled (3-->5-->7-->10) Degludec 36 units qhs (increased 7-->10-->15-->20-->25-->30-->36) ISS step 3 ACHS Bedside glucose checks Diet, carb consistent diabetes education dietitian consulted, appreciate recs Normocytic Anemia Hemoglobin has been downtrending, likely post surgical Plan Transfuse if hemoglobin less than 7 Constipation concern given constipating medications the patient is on, opioids for pain patient continues to have regular BM, - CTM - senna and docusate qd Mild hyponatremia - resolved Mild hypochloremia - resolved Hypophosphatemia (Resolved) Corrected sodium 135 based on current glucose Plan: Monitor for now Dispo: Med tele, remains afebrile and well appearing. Considering BKA, cont iv abx Diet:Carb consistent Bowel Reg: senna/docusate scheduled, given opioids given for pain VTE ppx: Heparin GI ppx: protonix qd 40 iv Code status: FULL Plan discussed with my attending Dr. Maryan Gordon MD PGY1 Attending Provider Attestation/Addendum I have seen and examined the patient. I was physically present for the [place] portions of the services provided including history, physical exam, diagnosis, treatment plans and orders. I agree with assessment and plan of care as documented by residents. Patient underwent dressing change by general surgery. He is still not decided about amputation, we will let us know on Wednesday. Vital signs have been stable. Lab results show improving WBCs, rest of the labs are stable as well. Continues to be on IV clindamycin for leg abscess. Analgesic regimen on board. Even though this this note was carefully revised there may still be minor errors in medical insurance collector due to voice recognition software. Juventino Steinberg MD
--- NOTE | 2025-09-28 15:05 | PD.SURPROG ---
Documentation for date of: 09/28/25 Subjective Subjective Brief History: 55M with DMII not on medications (pt states he was told he had preDM but had not followed up) presenting with right foot pain, redness and fatigue. Pt states he fell off a ladder on 09/05 and since then noted worsening pain and appearance of his right foot as well as fatigue. In ER he is found to have WBC 25, A1c [address] showing extensive gas and abscess of R foot PMH: DMII (not on meds) PSHx: None Meds: None Allergies: NKDA Social hx: Nonsmoker Narrative: Pt reports having severe pain this morning but more controlled this afternoon, finger sticks <300, WBC 11, remaining afebrile Exam Vital Signs Temp Pulse Resp BP Pulse Ox O2 Del Method O2 Flow Rate 98.3 F 81 17 128/73 97 Room Air 4 09/28/25 12:00 09/28/25 12:00 09/28/25 12:00 09/28/25 12:00 09/28/25 12:00 09/28/25 12:00 09/25/25 16:00 Constitutional Constitutional: no acute distress Routine Respiratory Exam Respiratory: Present no resp distress Routine Extremities Exam Comments: right foot dusky, wounds with iodosorb which has turned white, remaining tissue in wound beds appears dusky/fibrinous. new area of necrotic skin on the plantar surface of the foot Results Results: Laboratory Laboratory results: results reviewed Assessment & Plan Plan 55M with DMII not on meds (A1c 10) presenting with extensive right foot abscess, no signs of osteomyelitis s/p I&D 09/17 and debridement 09/20 and 09/26, with ongoing necrotic tissue. Pt is still considering amputation and is not yet ready to decide, would like to let me know on Monday 10/01 Wet-dry dressings BID Continue abx Will follow up PROCEDURES: Procedures Excisional debridement of right foot wounds
[2025-09-28] MEDS: SENNA/DOCUSATE SOD 1 TAB TABLET PO (20:30)
[2025-09-28] MEDS: INSULIN DEGLUDEC 5 UNIT/0.05 ML (PER 5 UNITS) 36 UNIT SC (20:32)
[2025-09-28] MEDS: HEPARIN SOD INJ 5000 UNIT/ML VIAL SC (20:33)
[2025-09-29] VITALS: BP 124/76; PULSE 78; RESP 17; TEMP 36.1; O2SAT 97
[2025-09-29] MEDS: ACETAMINOPHEN IVPB 1,000 MG/100 ML VIAL 250 MG IV ×2 (00:13→05:37)
[2025-09-29] MEDS: oxyCODONE HCL 5 MG IR TAB PO ×5 (00:48→21:18)
[2025-09-29 04:00] VITALS: BP 143/85; PULSE 77; RESP 16; TEMP 36.6; O2SAT 97
[2025-09-29] MEDS: GABAPENTIN 100 MG CAPSULE 200 MG PO ×3 (05:01→21:18)
[2025-09-29] MEDS: CLINDAMYCIN/NS 300MG IVPB 300 MG/50 ML BAG 100 MG IV ×3 (05:01→17:06)
[2025-09-29] MEDS: KETOROLAC INJ 30 MG/ML VIAL IVP ×3 (05:09→18:51)
[2025-09-29 06:29] LABS: Basophils # (Auto) 0.1 Thou/mm3 (0.0-0.2); Basophils % (Auto) 1 % (0-2.5); Eosinophils # (Auto) 0.2 Thou/mm3 (0.0-0.5); Eosinophils % (Auto) 2 % (0-10); Hematocrit 24.0 % (41.0-53.0); Immature Granulocytes Auto 0.15 Thou/mm3 (0.00-0.00); Lymphocytes # (Auto) 2.0 Thou/mm3 (1.0-4.8); Lymphocytes % (Auto) 16 % (10-50); Mean Corpuscular HGB Conc 32.9 g/dl (31.0-37.0); Mean Corpuscular Hemoglobin 29.9 pg (25.0-35.0); Mean Corpuscular Volume 91 fL (80-100); Monocytes # (Auto) 0.7 Thou/mm3 (0.0-0.8); Monocytes % (Auto) 6 % (0-12); Neutrophils # (Auto) 9.1 Thou/mm3 (1.8-7.7); Neutrophils % (Auto) 75 % (37-80); Nucleated Red Blood Cell # 0.00 Thou/mm3 (0.00-0.00); Nucleated Red Blood Cell % 0 /100 WBC (0); Platelet Count 800 Thou/mm3 (140-440); RDW Standard Deviation 47.3 fL (35.1-43.9); Red Blood Count 2.64 Miln/mm3 (4.50-5.90); White Blood Count 12.2 Thou/mm3 (3.8-10.6)
[2025-09-29 06:57] LABS: Alanine Aminotransferase 25 U/L (10-49); Albumin, Serum 3.2 gm/dL (3.5-5.0); Albumin/Globulin Ratio 0.8 (1.2-2.2); Alkaline Phosphatase 157 U/L (46-116); Anion Gap 10 (7-16); Aspartate Amino Transferase 29 U/L (0-34); BUN/Creatinine Ratio 23 Ratio (12-20); Bilirubin,Total 0.4 mg/dL (0.3-1.2); Blood Urea Nitrogen 14 mg/dL (9-23); Calcium 8.7 mg/dL (8.3-10.6); Calcium (Corrected) 9.3 mg/dL (8.5-10.1); Carbon Dioxide 26.8 mMol/L (20.0-31.0); Chloride 102 mMol/L (98-107); Creatinine (Component) 0.6 mg/dL (0.6-1.3); Estimated Creatinine Clearance 136.2 mL/min (>60); Globulin 4.1 gm/dL (2.3-3.5); Glucose 99 mg/dL (74-106); Magnesium 2.2 mg/dL (1.6-2.6); Osmolality,Calculated 278 (275-295); Phosphorous 4.3 mg/dL (2.4-5.1); Potassium 4.3 mMol/L (3.4-5.1); Sodium 139 mMol/L (136-145); Total Protein 7.3 gm/dL (5.7-8.2); eGFR > 60 See Note
[2025-09-29 07:01] LABS: Hemoglobin 7.9 g/dL (13.5-16.0)
[2025-09-29 08:00] VITALS: BP 122/70; PULSE 72; RESP 18; TEMP 36.3; O2SAT 98
--- NOTE | 2025-09-29 09:03 | ESPR_ITS ---
<Statement entered by Mattie Sweeney MD - 09/29/25 16:46> Pt is seen at bedside, Per surgery recommendations pt is informed he will need a BKA due to ongoing infection in his right foot and despite multiple I&D with IV antibiotics there is no improvement. Will is agreeable to BKA either on Wednesday or Wednesday. Patient was seen and examined by me personally. I have directly supervised and reviewed documentation by the team resident and agree with its findings. ------- Plan of care was discussed with the attending, Dr. Maryan Sweeney, PGY-2 Documentation for date of: 09/29/25 Subjective Subjective Interval history: * Patient seen and examined at bedside. * Spoke with surgery, planning for below-knee amputation. * Reduced insulin lispro 10 units to 5 units with meals. Exam Vital Signs Temp Pulse Resp BP Pulse Ox O2 Del Method O2 Flow Rate 97.3 F 72 18 122/70 98 Room Air 4 09/29/25 08:00 09/29/25 08:00 09/29/25 08:00 09/29/25 08:00 09/29/25 08:00 09/29/25 08:00 09/25/25 16:00 Narrative Exam General: Awake and in no acute distress. Conversational and non-toxic appearing. Neurologic: GCS 15. Alert and oriented x3, no gross neurological deficit, and patient able to move all 4 extremities. HEENT: Normocephalic, atraumatic, mucous membranes moist. Pupils reactive to light. Heart: Regular rate and rhythm, normal S1 and S2, no murmurs. Lungs: Clear to auscultation bilaterally with no wheezing or crackles. Abdomen: Soft, nondistended, nontender, positive bowel sounds. No guarding or rebound tenderness. Extremities: Right foot has circumferential wounds, foot is wraped in kerlix status post I&D with Dr. Webster on 09/25. Skin: Warm. Dry. No rash or ecchymoses. Objective Labs 09/30/25 04:20 09/30/25 04:20 Labs: Laboratory Results - last 24 hr 09/29/25 04:38 WBC 12.2 H RBC 2.64 L Hgb 7.9 L Hct 24.0 L MCV 91 MCH 29.9 MCHC 32.9 RDW Std Deviation 47.3 H Plt Count 800 H D Neut % (Auto) 75 Lymph % (Auto) 16 [place] % (Auto) 6 Eos % (Auto) 2 Baso % (Auto) 1 Neut # (Auto) 9.1 H Lymph # (Auto) 2.0 [place] # (Auto) 0.7 Eos # (Auto) 0.2 Baso # (Auto) 0.1 Immature Gran # (Auto) 0.15 H Absolute Nucleated RBC 0.00 Immature Gran % 1 H Nucleated RBC % 0 Sodium 139 Potassium 4.3 Chloride 102 Carbon Dioxide 26.8 Anion Gap 10 BUN 14 Creatinine 0.6 Estim Creat Clear Calc 136.2 eGFR > 60 BUN/Creatinine Ratio 23 H Glucose 99 D Calculated Osmolality 278 Calcium 8.7 Corrected Calcium 9.3 Phosphorus 4.3 Magnesium 2.2 Total Bilirubin 0.4 AST 29 ALT 25 Alkaline Phosphatase 157 H Total Protein 7.3 Albumin 3.2 L Globulin 4.1 H Albumin/Globulin Ratio 0.8 L ABG Interpretation ABG results: 09/17/25 09:45 VBG pH 7.48 VBG pCO2 41 VBG pO2 46 VBG Base Excess 6 H Quality Measures Quality Measures VTE prophylaxis Assessment & Plan Assessment Current Active Medications: Generic Name Dose Route Start Last Admin Trade Name Freq PRN Reason Stop Dose Admin Ascorbic Acid 500 mg 09/21/25 21:00 09/28/25 20:30 Ascorbic Acid 250 Mg Tablet PO 10/21/25 20:59 500 mg BID CELESTINE Administration Cadexomer Iodine 0 gm 09/28/25 09:00 09/28/25 14:05 Cadexomer Iodine Gel 40 Gm Tube TOP 10/05/25 08:59 Not Given Q2D CELESTINE Dextrose 25 ml 09/17/25 19:54 Dextrose 50%-Water Inj 50 Ml Syringe IV 10/17/25 19:53 Q15MIN PRN BG 50-70 responsive npo pt Dextrose 50 ml 09/17/25 19:54 Dextrose 50%-Water Inj 50 Ml Syringe IV 10/17/25 19:53 Q15MIN PRN BG <50 OR BG <70 & pt unresponsive Gabapentin 200 mg 09/18/25 14:00 09/29/25 05:01 Gabapentin 100 Mg Capsule PO 10/18/25 13:59 200 mg TID CELESTINE Administration Glucagon 1 mg 09/17/25 19:54 Glucagon Inj 1 Mg Vial IM Q15MIN PRN BG <70, and no IV access Heparin Sodium (Porcine) 5,000 unit 09/22/25 21:00 09/28/25 20:33 Heparin Sod Inj 5000 Unit/Ml Vial SC 10/06/25 20:59 5,000 unit Q12HR CELESTINE Administration Clindamycin/Sodium Chloride 300 mg in 50 mls @ 100 mls/hr 09/25/25 12:00 09/29/25 05:01 Cleocin/Ns Ivpb IV 10/02/25 11:59 100 mls/hr Q6HR CELESTINE Administration Insulin Degludec 36 unit 09/27/25 21:00 09/28/25 20:32 Insulin Degludec 5 Unit/0.05 Ml (Per 5 Units) SC 10/27/25 20:59 36 unit HS CELESTINE Administration Insulin Human Lispro 0 unit 09/20/25 17:00 09/29/25 08:03 Insulin Lispro (Admelog) 1 Unit/0.01 Ml Unit SC 10/20/25 16:59 Not Given A[facility]S [facility] Protocol Insulin Human Lispro 10 unit 09/27/25 11:30 09/29/25 08:04 Insulin Lispro (Admelog) 1 Unit/0.01 Ml Unit SC 10/27/25 11:29 Not Given AC [facility] Ketorolac Tromethamine 30 mg 09/28/25 16:54 09/29/25 05:09 Ketorolac Inj 30 Mg/Ml Vial IVP 10/01/25 11:09 30 mg Q6HR PRN Administration for severe pain 7-10 Protocol Multivitamins/Minerals 15 ml 09/22/25 09:00 09/28/25 08:02 Multivitamin 15 Ml Udc PO 10/22/25 08:59 15 ml QDAY CELESTINE Administration Ondansetron HCl 4 mg 09/17/25 15:09 Ondansetron Inj 2 Mg/Ml Inj 2 Ml IVP 10/17/25 15:08 Q6H PRN NAUSEA OR VOMITING Protocol Oxycodone HCl 5 mg 09/25/25 09:33 09/29/25 06:42 Oxycodone Hcl 5 Mg Ir Tab PO 09/30/25 09:32 5 mg Q6HR PRN Administration moderate to severe pain 5- 8 Protocol Pantoprazole Sodium 40 mg 09/21/25 22:30 09/28/25 08:03 Pantoprazole Inj 40 Mg Vial IVP 10/21/25 22:29 40 mg QDAY CELESTINE Administration Sennosides 1 tab 09/22/25 21:00 09/28/25 20:30 Senna/Docusate Sod 1 Tab Tablet PO 10/22/25 20:59 1 tab HS CELESTINE Administration Protocol Zinc Sulfate 220 mg 09/22/25 09:00 09/28/25 08:02 Zinc Sulfate 220 Mg Capsule PO 10/05/25 08:59 220 mg QDAY CELESTINE Administration Plan Summary: Mr. Carrera is a 55 year old gentleman with a hx of T2DM- poorly controlled (a1c 10) with no active PCP managment who presented to the ed on 09/17 10 days after a fall from a ladder resulting in injury of his R foot and subsequent errythema and swelling, found to have R foot abscess concerning for nec fasc, s/p incision and drainage with Dr. Ruffin on 09/17, on IV broad spectrum antibiotics, with plan for likely subsequent incisions and drainages, and possible amputation.leukocytosis downtrending. possible bka, patient to discuss with surgeon today. Right Foot abscess s/p I and Dx3 Elevated alk phos - downtrending Thrombocytosis Leukocytosis pt presented 10 days after falling off of a ladder at work. he states that his foot got caught in the rung of the ladder and that he fell backwards and twisted and injured his ankle. he did not seek medical attention at that time. His pain and swelling worsened and he experienced chills which prompted him to present to the ED. suspect that R foot wound did not heal 2/2 poorly controlled DM and immuno compromised state and poor peripheral perfusion. leukocytosis is stable lots of pus expressed during wound care on 09/19 Patient is status post incision and drainage on 09/17/2025 and debridement on 09/20/2025 and 09/25/202509/21 with wound vac and straw collored copius output. 09/23: Patient continues to have straw-colored/whitehead-colored output from wound VAC. Surrounding erythema and edema. Pain is well-controlled. 09/24: Whitehead-colored output from wound VAC continues. Surgery plans for debridement versus BKA on 09/25/2025. 09/25: s/p 3rd surgery today , i and d 09/26: reactive leuko 09/28: wound care with Augustin 09/29: Spoke with surgery, below-knee amputation planned for 10/01/[address]: Extensive soft tissue infection with gas-forming organisms involving all of the soft tissues of the foot Abx Clindamycin 300mg IV q6hr (09/25-) d/c when no further debridement is indicated. Pain management APAP IV q6hr celestine oxycodone 5 mg q4hr prn for moderate to severe pain. Gabapentin 200 mg TID- pt reports that it makes him very tired but with minimal relief of his foot pain Ketoralac 30 mg IV q6hr prn- CTM renal function Plan - surgery consulted, appreciate recs,s/p 3 debridements with JACKIE Marie likely on Monday 10/01 - CTM leukocytosis , CRP, ESR, - incentive spirometry for pna ppx - wound care consulted, appreciate recs - Vit C 500mg BID - Zinc Sulfate 220mg qd for 14 days (09/22- 10/05 end date ) - multivitamin 15 ml QD AYSE - likely prerenal vs intrarenal - resolved Plan Encourage PO intake T2DM- poorly controlled A1c 10.7 on admission. pt states that he was diagnosed with dm in 2014, by his pcp and was not initiated on any medication therapies at that time. he was lost to follow up and has not been seen by a PCP since that time. pt states that he initiated dietary changes with intent to control his dm. Plan Lispro 5 units TID with meals scheduled 3-->5-->7-->10, reduced to 5 units 09/29/2025 Degludec 36 units qhs (increased 7-->10-->15-->20-->25-->30-->36) ISS step 3 ACHS Bedside glucose checks Diet, carb consistent diabetes education dietitian consulted, appreciate recs Normocytic Anemia Hemoglobin has been downtrending, likely post surgical Plan Transfuse if hemoglobin less than 7 Constipation concern given constipating medications the patient is on, opioids for pain patient continues to have regular BM, - CTM - senna and docusate qd Mild hyponatremia - (Resolved) Mild hypochloremia - (Resolved) Hypophosphatemia (Resolved) Dispo: Med tele. Continuing clindamycin. Reduced lispro from 10 units to 5 units with meals. Below-knee amputation planned for 10/01/2025. Diet: Carb consistent Bowel Reg: senna/docusate scheduled, opioids for pain VTE ppx: Heparin GI ppx: protonix qd 40 iv Code status: FULL Patient was seen and discussed with my attending physician Dr. Maryan HOLMAN and my senior resident Dr. Patel HOLMAN PGY-2. Moe Celaya DO PGY-1. Attending Provider Attestation/Addendum I have seen and examined the patient. I was physically present for the [place] portions of the services provided including history, physical exam, diagnosis, treatment plans and orders. I agree with assessment and plan of care as documented by residents. Even though this this note was carefully revised there may still be minor errors in mower operator due to voice recognition software. Juventino Steinberg MD
[2025-09-29] MEDS: ASCORBIC ACID 250 MG TABLET 500 MG PO ×2 (09:15→21:18)
[2025-09-29] MEDS: ZINC SULFATE 220 MG CAPSULE PO (09:15)
[2025-09-29] MEDS: HEPARIN SOD INJ 5000 UNIT/ML VIAL SC ×2 (09:16→21:18)
[2025-09-29] MEDS: MULTIVITAMIN 15 ML UDC PO (09:16)
[2025-09-29] MEDS: INSULIN LISPRO (AdmeLOG) 1 UNIT/0.01 ML UNIT SC (11:38)
[2025-09-29] MEDS: INSULIN LISPRO (AdmeLOG) 1 UNIT/0.01 ML UNIT 10 UNIT SC (11:38)
[2025-09-29 12:00] VITALS: BP 132/75; PULSE 77; PULSE 79; RESP 16; TEMP 36.3; O2SAT 99
[2025-09-29 16:00] VITALS: BP 145/82; PULSE 77; PULSE 91; RESP 16; TEMP 36.6; O2SAT 99
[2025-09-29] MEDS: INSULIN LISPRO (AdmeLOG) 1 UNIT/0.01 ML UNIT 5 UNIT SC (17:06)
[2025-09-29 20:00] VITALS: BP 118/63; PULSE 83; RESP 18; TEMP 37.2; O2SAT 98
[2025-09-29] MEDS: SENNA/DOCUSATE SOD 1 TAB TABLET PO (21:18)
[2025-09-29] MEDS: INSULIN DEGLUDEC 5 UNIT/0.05 ML (PER 5 UNITS) 36 UNIT SC (21:19)
[2025-09-30] VITALS (7 sets, daily range): BP systolic 114–133; BP diastolic 66–93; PULSE 76–90; RESP 14–18; TEMP 36.1–37.6; O2SAT 96–99
[2025-09-30] MEDS: CLINDAMYCIN/NS 300MG IVPB 300 MG/50 ML BAG 100 MG IV ×5 (00:46→23:25)
[2025-09-30] MEDS: KETOROLAC INJ 30 MG/ML VIAL IVP ×4 (00:47→19:16)
[2025-09-30] MEDS: oxyCODONE HCL 5 MG IR TAB PO ×6 (02:11→22:28)
[2025-09-30] MEDS: GABAPENTIN 100 MG CAPSULE 200 MG PO ×3 (05:27→21:08)
[2025-09-30 05:41] LABS: Basophils # (Auto) 0.1 Thou/mm3 (0.0-0.2); Basophils % (Auto) 1 % (0-2.5); Eosinophils # (Auto) 0.2 Thou/mm3 (0.0-0.5); Eosinophils % (Auto) 2 % (0-10); Hematocrit 23.0 % (41.0-53.0); Hemoglobin 7.3 g/dL (13.5-16.0); Immature Granulocytes Auto 0.20 Thou/mm3 (0.00-0.00); Lymphocytes # (Auto) 2.4 Thou/mm3 (1.0-4.8); Lymphocytes % (Auto) 19 % (10-50); Mean Corpuscular HGB Conc 31.7 g/dl (31.0-37.0); Mean Corpuscular Hemoglobin 28.7 pg (25.0-35.0); Mean Corpuscular Volume 91 fL (80-100); Monocytes # (Auto) 0.8 Thou/mm3 (0.0-0.8); Monocytes % (Auto) 7 % (0-12); Neutrophils # (Auto) 9.1 Thou/mm3 (1.8-7.7); Neutrophils % (Auto) 71 % (37-80); Nucleated Red Blood Cell # 0.00 Thou/mm3 (0.00-0.00); Nucleated Red Blood Cell % 0 /100 WBC (0); Platelet Count 845 Thou/mm3 (140-440); RDW Standard Deviation 47.5 fL (35.1-43.9); Red Blood Count 2.54 Miln/mm3 (4.50-5.90); White Blood Count 12.8 Thou/mm3 (3.8-10.6)
[2025-09-30 05:56] LABS: Alanine Aminotransferase 23 U/L (10-49); Albumin, Serum 3.0 gm/dL (3.5-5.0); Albumin/Globulin Ratio 0.8 (1.2-2.2); Alkaline Phosphatase 146 U/L (46-116); Anion Gap 8 (7-16); Aspartate Amino Transferase 16 U/L (0-34); BUN/Creatinine Ratio 20 Ratio (12-20); Bilirubin,Total 0.3 mg/dL (0.3-1.2); Blood Urea Nitrogen 14 mg/dL (9-23); Calcium 8.6 mg/dL (8.3-10.6); Calcium (Corrected) 9.4 mg/dL (8.5-10.1); Carbon Dioxide 26.8 mMol/L (20.0-31.0); Chloride 102 mMol/L (98-107); Creatinine (Component) 0.7 mg/dL (0.6-1.3); Estimated Creatinine Clearance 116.7 mL/min (>60); Globulin 4.0 gm/dL (2.3-3.5); Glucose 121 mg/dL (74-106); Magnesium 2.0 mg/dL (1.6-2.6); Osmolality,Calculated 275 (275-295); Phosphorous 3.9 mg/dL (2.4-5.1); Potassium 4.4 mMol/L (3.4-5.1); Sodium 137 mMol/L (136-145); Total Protein 7.0 gm/dL (5.7-8.2); eGFR > 60 See Note
[2025-09-30] MEDS: INSULIN LISPRO (AdmeLOG) 1 UNIT/0.01 ML UNIT 5 UNIT SC ×3 (07:40→17:34)
[2025-09-30] MEDS: ZINC SULFATE 220 MG CAPSULE PO (08:44)
[2025-09-30] MEDS: ASCORBIC ACID 250 MG TABLET 500 MG PO ×2 (08:44→20:21)
[2025-09-30] MEDS: MULTIVITAMIN 15 ML UDC PO (08:44)
[2025-09-30] MEDS: HEPARIN SOD INJ 5000 UNIT/ML VIAL SC ×2 (08:46→20:26)
[2025-09-30] MEDS: CLOTRIMAZOLE CR 1% 30 GM TUBE TOP ×2 (14:29→20:21)
--- NOTE | 2025-09-30 14:42 | ESPR_ITS ---
Documentation for date of: 09/30/25 Subjective Subjective Interval history: Pt is seen at bedside, pt is sitting in chair at bedside with his right foot wrapped after wound care. Pt appears to be comfortable and not in acute distress due to pain. Pt states he is doing OKAY no new complaints. Pt states he ahs come to terms about losing his foot due to this ongoing infection. Per surgery recommendation he will ultimately need a BKA, which Pt is agreeable to, surgery will be scheduled either wednesday or wednesday. Pain is well controlled with current pain management. vitals are stable, pt has remained afebrile. Labs are reviewed with leukocyte count downtrended to 12.8, BG is 121. Exam Vital Signs Temp Pulse Resp BP Pulse Ox O2 Del Method O2 Flow Rate 97.1 F 90 18 123/93 H 96 Room Air 4 09/30/25 12:00 09/30/25 12:00 09/30/25 12:00 09/30/25 12:00 09/30/25 12:00 09/30/25 12:00 09/25/25 16:00 Narrative Exam General: Awake and in no acute distress. Conversational and non-toxic appearing. Neurologic: GCS 15. Alert and oriented x3, no gross neurological deficit, and patient able to move all 4 extremities. HEENT: Normocephalic, atraumatic, mucous membranes moist. Pupils reactive to light. Heart: Regular rate and rhythm, normal S1 and S2, no murmurs. Lungs: Clear to auscultation bilaterally with no wheezing or crackles. Abdomen: Soft, nondistended, nontender, positive bowel sounds. No guarding or rebound tenderness. Extremities: Right foot has circumferential wounds, foot is wrapped Skin: Warm. Dry. No rash or ecchymoses. Objective Labs 09/30/25 04:20 09/30/25 04:20 Labs: Laboratory Results - last 24 hr 09/30/25 04:20 WBC 12.8 H RBC 2.54 L Hgb 7.3 L Hct 23.0 L MCV 91 MCH 28.7 MCHC 31.7 RDW Std Deviation 47.5 H Plt Count 845 H D Neut % (Auto) 71 Lymph % (Auto) 19 [place] % (Auto) 7 Eos % (Auto) 2 Baso % (Auto) 1 Neut # (Auto) 9.1 H Lymph # (Auto) 2.4 [place] # (Auto) 0.8 Eos # (Auto) 0.2 Baso # (Auto) 0.1 Immature Gran # (Auto) 0.20 H Absolute Nucleated RBC 0.00 Immature Gran % 2 H Nucleated RBC % 0 Sodium 137 Potassium 4.4 Chloride 102 Carbon Dioxide 26.8 Anion Gap 8 BUN 14 Creatinine 0.7 Estim Creat Clear Calc 116.7 eGFR > 60 BUN/Creatinine Ratio 20 Glucose 121 H Calculated Osmolality 275 Calcium 8.6 Corrected Calcium 9.4 Phosphorus 3.9 Magnesium 2.0 Total Bilirubin 0.3 AST 16 ALT 23 Alkaline Phosphatase 146 H Total Protein 7.0 Albumin 3.0 L Globulin 4.0 H Albumin/Globulin Ratio 0.8 L ABG Interpretation ABG results: 09/17/25 09:45 VBG pH 7.48 VBG pCO2 41 VBG pO2 46 VBG Base Excess 6 H Quality Measures Quality Measures VTE prophylaxis Assessment & Plan Assessment Current Active Medications: Generic Name Dose Route Start Last Admin Trade Name Freq PRN Reason Stop Dose Admin Ascorbic Acid 500 mg 09/21/25 21:00 09/30/25 08:44 Ascorbic Acid 250 Mg Tablet PO 10/21/25 20:59 500 mg BID WALTER Administration Cadexomer Iodine 0 gm 09/28/25 09:00 09/30/25 09:00 Cadexomer Iodine Gel 40 Gm Tube TOP 10/05/25 08:59 Not Given Q2D WALTER Clotrimazole 0 gm 09/30/25 14:00 09/30/25 14:29 Clotrimazole Cr 1% 30 Gm Tube TOP 10/30/25 13:59 1 applicatio BID WALTER Administration Dextrose 25 ml 09/17/25 19:54 Dextrose 50%-Water Inj 50 Ml Syringe IV 10/17/25 19:53 Q15MIN PRN BG 50-70 responsive npo pt Dextrose 50 ml 09/17/25 19:54 Dextrose 50%-Water Inj 50 Ml Syringe IV 10/17/25 19:53 Q15MIN PRN BG <50 OR BG <70 & pt unresponsive Gabapentin 200 mg 09/18/25 14:00 09/30/25 13:17 Gabapentin 100 Mg Capsule PO 10/18/25 13:59 200 mg TID WALTER Administration Glucagon 1 mg 09/17/25 19:54 Glucagon Inj 1 Mg Vial IM Q15MIN PRN BG <70, and no IV access Heparin Sodium (Porcine) 5,000 unit 09/22/25 21:00 09/30/25 08:46 Heparin Sod Inj 5000 Unit/Ml Vial SC 10/06/25 20:59 5,000 unit Q12HR WALTER Administration Clindamycin/Sodium Chloride 300 mg in 50 mls @ 100 mls/hr 09/25/25 12:00 09/30/25 11:43 Cleocin/Ns Ivpb IV 10/02/25 11:59 100 mls/hr Q6HR WALTER Administration Insulin Degludec 36 unit 09/27/25 21:00 09/29/25 21:19 Insulin Degludec 5 Unit/0.05 Ml (Per 5 Units) SC 10/27/25 20:59 36 unit HS WALTER Administration Insulin Human Lispro 0 unit 09/20/25 17:00 09/30/25 11:41 Insulin Lispro (Admelog) 1 Unit/0.01 Ml Unit SC 10/20/25 16:59 Not Given ACHS [facility] Protocol Insulin Human Lispro 5 unit 09/29/25 17:00 09/30/25 11:41 Insulin Lispro (Admelog) 1 Unit/0.01 Ml Unit SC 10/29/25 16:59 5 unit AC WALTER Administration Ketorolac Tromethamine 30 mg 09/28/25 16:54 09/30/25 13:18 Ketorolac Inj 30 Mg/Ml Vial IVP 10/01/25 11:09 30 mg Q6HR PRN Administration for severe pain 7-10 Protocol Multivitamins/Minerals 15 ml 09/22/25 09:00 09/30/25 08:44 Multivitamin 15 Ml Udc PO 10/22/25 08:59 15 ml QDAY WALTER Administration Ondansetron HCl 4 mg 09/17/25 15:09 Ondansetron Inj 2 Mg/Ml Inj 2 Ml IVP 10/17/25 15:08 Q6H PRN NAUSEA OR VOMITING Protocol Oxycodone HCl 5 mg 09/30/25 10:12 09/30/25 14:33 Oxycodone Hcl 5 Mg Ir Tab PO 10/05/25 10:11 5 mg Q4H PRN Administration PAIN SCALE 4-10(Mod-Sev Protocol Pantoprazole Sodium 40 mg 09/21/25 22:30 09/30/25 08:46 Pantoprazole Inj 40 Mg Vial IVP 10/21/25 22:29 40 mg QDAY WALTER Administration Sennosides 1 tab 09/22/25 21:00 09/29/25 21:18 Senna/Docusate Sod 1 Tab Tablet PO 10/22/25 20:59 1 tab HS WALTER Administration Protocol Zinc Sulfate 220 mg 09/22/25 09:00 09/30/25 08:44 Zinc Sulfate 220 Mg Capsule PO 10/05/25 08:59 220 mg QDAY WALTER Administration Plan Mr. Carrera is a 55 year old gentleman with a hx of T2DM- poorly controlled (a1c 10) with no active PCP managment who presented to the ed on 09/17 10 days after a fall from a ladder resulting in injury of his R foot and subsequent errythema and swelling, found to have R foot abscess concerning for nec fasc, s/p incision and drainage with Dr. Ruffin on 09/17, on IV broad spectrum antibiotics, with plan for likely subsequent incisions and drainages, and possible amputation.leukocytosis downtrending. possible bka, patient to discuss with surgeon today. #R foot abscess s/p I&D x3 #Thrombocytosis -pt presented 10 days after falling off of a ladder at work. he states that his foot got caught in the rung of the ladder and that he fell backwards and twisted and injured his ankle. he did not seek medical attention at that time. His pain and swelling worsened and he experienced chills which prompted him to present to the ED. suspect that R foot wound did not heal 2/2 poorly controlled DM and immuno- compromised state and poor peripheral perfusion. leukocytosis is downtrending, lots of pus expressed during wound care on 09/19 -Foot CT: Extensive soft tissue infection with gas-forming organisms involving all of the soft tissues of the foot -s/p I and D with Dr. Ruffin 09/17, 09/20 and 09/25 -09/21-09/24 with wound vac and straw colored copious output. Plan: -Surgery consulted, appreciate recs Dr. Ruffin, BKA likely on Monday 10/01 or Tuesday 10/02 -Clindamycin 300mg IV q6hr (09/25- ) d/c when no further debridement is indicated. -Oxycodone 5 mg q4hr prn for moderate to severe pain. -Gabapentin 200 mg TID- Pt reports that it makes him very tired but with minimal relief of his foot pain -Ketoralac 30 mg IV q6hr prn- CTM renal function -Incentive spirometry for pna ppx -Wound care consulted, appreciate recs -Vit C 500mg BID -Zinc Sulfate 220mg qd for 14 days (09/22- 10/05 end date) -Multivitamin 15 ml QD #Type 2 diabetes mellitus- poorly controlled -A1c 10.7 and BG 412 on admission -P states that he was diagnosed with dm in 2014, by his pcp and was not initiated on any medication therapies at that time. he was lost to follow up and has not been seen by a PCP since that time. pt states that he initiated dietary changes with intent to control his dm. Plan: -Lispro 5 units TID with meals -Degludec 36 units qhs (increased 7-->10-->15-->20-->25-->30-->36) -ISS step 3 -[facility] Bedside glucose checks -Diet, carb consistent -diabetes education -Dietition consulted, appreciate recs AYSE - likely prerenal vs intrarenal - resolved Plan Encourage PO intake #Normocytic Anemia Hemoglobin has been downtrending, likely post surgical Plan -Will Transfuse if hemoglobin drops <7 #Constipation- resolved concern given constipating medications the patient is on, opioids for pain patient continues to have regular BM, - CTM - senna and docusate qd Mild hyponatremia - resolved Mild hypochloremia - resolved Hypophosphatemia (Resolved) Corrected sodium 135 based on current glucose Plan: Monitor for now Dispo: Med tele, remains afebrile and well appearing. Considering BKA, cont iv abx Diet:Carb consistent Bowel Reg: senna/docusate scheduled, given opioids given for pain VTE ppx: Heparin GI ppx: protonix qd 40 iv Code status: FULL Assessment and plan discussed with my attending physician Dr. Maryan Sweeney (PGY-2)- Internal medicine resident Attending Provider Attestation/Addendum I have seen and examined the patient. I was physically present for the [place] portions of the services provided including history, physical exam, diagnosis, treatment plans and orders. I agree with assessment and plan of care as documented by residents. Even though this this note was carefully revised there may still be minor errors in cam specialist due to voice recognition software. Juventino Steinberg MD
[2025-09-30] MEDS: INSULIN LISPRO (AdmeLOG) 1 UNIT/0.01 ML UNIT SC ×2 (17:34→20:24)
[2025-09-30] MEDS: SENNA/DOCUSATE SOD 1 TAB TABLET PO (20:21)
[2025-09-30] MEDS: INSULIN DEGLUDEC 5 UNIT/0.05 ML (PER 5 UNITS) 36 UNIT SC (20:25)
[2025-10-01] VITALS: BP 99/54; PULSE 82; RESP 18; TEMP 36.7; O2SAT 98
[2025-10-01] MEDS: KETOROLAC INJ 30 MG/ML VIAL IVP ×2 (01:08→07:24)
[2025-10-01] MEDS: oxyCODONE HCL 5 MG IR TAB PO ×5 (02:23→22:21)
[2025-10-01 04:00] VITALS: BP 112/53; PULSE 79; RESP 16; TEMP 36.4; O2SAT 99
[2025-10-01] MEDS: CLINDAMYCIN/NS 300MG IVPB 300 MG/50 ML BAG 100 MG IV (05:07)
[2025-10-01] MEDS: GABAPENTIN 100 MG CAPSULE 200 MG PO ×3 (05:07→22:21)
[2025-10-01 05:55] LABS: Basophils # (Auto) 0.1 Thou/mm3 (0.0-0.2); Basophils % (Auto) 1 % (0-2.5); Eosinophils # (Auto) 0.3 Thou/mm3 (0.0-0.5); Eosinophils % (Auto) 2 % (0-10); Hematocrit 23.2 % (41.0-53.0); Immature Granulocytes Auto 0.22 Thou/mm3 (0.00-0.00); Lymphocytes # (Auto) 1.9 Thou/mm3 (1.0-4.8); Lymphocytes % (Auto) 16 % (10-50); Mean Corpuscular HGB Conc 32.8 g/dl (31.0-37.0); Mean Corpuscular Hemoglobin 29.6 pg (25.0-35.0); Mean Corpuscular Volume 90 fL (80-100); Monocytes # (Auto) 0.7 Thou/mm3 (0.0-0.8); Monocytes % (Auto) 6 % (0-12); Neutrophils # (Auto) 8.9 Thou/mm3 (1.8-7.7); Neutrophils % (Auto) 74 % (37-80); Nucleated Red Blood Cell # 0.00 Thou/mm3 (0.00-0.00); Nucleated Red Blood Cell % 0 /100 WBC (0); Platelet Count 588 Thou/mm3 (140-440); RDW Standard Deviation 46.2 fL (35.1-43.9); Red Blood Count 2.57 Miln/mm3 (4.50-5.90); White Blood Count 12.1 Thou/mm3 (3.8-10.6)
[2025-10-01 06:06] LABS: Hemoglobin 7.6 g/dL (13.5-16.0)
[2025-10-01 06:27] LABS: Alanine Aminotransferase 37 U/L (10-49); Albumin, Serum 3.0 gm/dL (3.5-5.0); Albumin/Globulin Ratio 0.8 (1.2-2.2); Alkaline Phosphatase 161 U/L (46-116); Anion Gap 9 (7-16); Aspartate Amino Transferase 48 U/L (0-34); BUN/Creatinine Ratio 23 Ratio (12-20); Bilirubin,Total 0.3 mg/dL (0.3-1.2); Blood Urea Nitrogen 16 mg/dL (9-23); Calcium 8.1 mg/dL (8.3-10.6); Calcium (Corrected) 8.9 mg/dL (8.5-10.1); Carbon Dioxide 24.3 mMol/L (20.0-31.0); Chloride 102 mMol/L (98-107); Creatinine (Component) 0.7 mg/dL (0.6-1.3); Estimated Creatinine Clearance 116.7 mL/min (>60); Globulin 4.0 gm/dL (2.3-3.5); Glucose 184 mg/dL (74-106); Magnesium 2.1 mg/dL (1.6-2.6); Osmolality,Calculated 276 (275-295); Phosphorous 3.7 mg/dL (2.4-5.1); Potassium 4.5 mMol/L (3.4-5.1); Sodium 135 mMol/L (136-145); Total Protein 7.0 gm/dL (5.7-8.2); eGFR > 60 See Note
[2025-10-01] MEDS: INSULIN LISPRO (AdmeLOG) 1 UNIT/0.01 ML UNIT 5 UNIT SC ×3 (07:24→17:10)
[2025-10-01 08:00] VITALS: BP 128/68; PULSE 77; PULSE 88; RESP 17; TEMP 36.6; O2SAT 97
--- NOTE | 2025-10-01 09:05 | PC.PT ---
PT eval received. Patient is pending BKA. Will initiate PT evaluation post BKA.
[2025-10-01] MEDS: MULTIVITAMIN 15 ML UDC PO (09:31)
[2025-10-01] MEDS: ASCORBIC ACID 250 MG TABLET 500 MG PO ×2 (09:32→22:20)
[2025-10-01] MEDS: CLOTRIMAZOLE CR 1% 30 GM TUBE TOP ×2 (09:32→21:09)
[2025-10-01] MEDS: ZINC SULFATE 220 MG CAPSULE PO (09:32)
--- NOTE | 2025-10-01 11:07 | PC.SS ---
rounding note: Patient pending bka surgery on Wednesday.
--- NOTE | 2025-10-01 11:48 | ESPR_ITS ---
<Statement entered by Mohinder Crowley MD - 10/01/25 12:55> No acute overnight events. Seen and examined at bedside and patient resting comfortably in bed. States that pain is relatively well-controlled but Toradol noted to have reached completion date and recommended not to give more than 5 days. Will continue with oral oxycodone for pain management at this time. Otherwise, no fevers overnight, slight improvement in leukocytosis, hemoglobin stable. Plans to go to the OR tomorrow and n.p.o. after midnight. ----- Note reviewed and agree with care plan as documented. Please refer to the note below for further details. Plan discussed with attending physician Dr. Maryan Crowley MD PGY-2 Internal Medicine Documentation for date of: 10/01/25 Subjective Subjective Interval history: No acute events overnight.?Patient seen and examined at bedside this AM.?Patient is resting peacefully in bed, states his pain is fairly well controlled, but thinks the ketorolac isn't helping with pain as much as the other pain meds, requests dilaudid. Explained to patient that since pain is well controlled overall, adding dilaudid is not preferred. Labs and vitals were reviewed.?No further complaints at this time. Patient is agreeable to BKA. Exam Vital Signs Temp Pulse Resp BP Pulse Ox O2 Del Method O2 Flow Rate 98 F 77 17 128/68 97 Room Air 4 10/01/25 08:00 10/01/25 08:00 10/01/25 08:00 10/01/25 08:00 10/01/25 08:00 10/01/25 08:00 09/25/25 16:00 Narrative Exam General: Awake and in no acute distress. Conversational and non-toxic appearing. Neurologic: GCS 15. Alert and oriented x3, no gross neurological deficit, and patient able to move all 4 extremities. HEENT: Normocephalic, atraumatic, mucous membranes moist. Pupils reactive to light. Heart: Regular rate and rhythm, normal S1 and S2, no murmurs. Lungs: Clear to auscultation bilaterally with no wheezing or crackles. Abdomen: Soft, nondistended, nontender, positive bowel sounds. No guarding or rebound tenderness. Extremities: Right foot has circumferential wounds, foot is wrapped clean Skin: Warm. Dry. No rash or ecchymoses. Objective Labs 10/01/25 04:20 10/01/25 04:20 Labs: Laboratory Results - last 24 hr 10/01/25 04:20 WBC 12.1 H RBC 2.57 L Hgb 7.6 L Hct 23.2 L MCV 90 MCH 29.6 MCHC 32.8 RDW Std Deviation 46.2 H Plt Count 588 H D Neut % (Auto) 74 Lymph % (Auto) 16 [place] % (Auto) 6 Eos % (Auto) 2 Baso % (Auto) 1 Neut # (Auto) 8.9 H Lymph # (Auto) 1.9 [place] # (Auto) 0.7 Eos # (Auto) 0.3 Baso # (Auto) 0.1 Immature Gran # (Auto) 0.22 H Absolute Nucleated RBC 0.00 Immature Gran % 2 H Nucleated RBC % 0 Sodium 135 L Potassium 4.5 Chloride 102 Carbon Dioxide 24.3 Anion Gap 9 BUN 16 Creatinine 0.7 Estim Creat Clear Calc 116.7 eGFR > 60 BUN/Creatinine Ratio 23 H Glucose 184 H D Calculated Osmolality 276 Calcium 8.1 L Corrected Calcium 8.9 Phosphorus 3.7 Magnesium 2.1 Total Bilirubin 0.3 AST 48 H ALT 37 Alkaline Phosphatase 161 H Total Protein 7.0 Albumin 3.0 L Globulin 4.0 H Albumin/Globulin Ratio 0.8 L ABG Interpretation ABG results: 09/17/25 09:45 VBG pH 7.48 VBG pCO2 41 VBG pO2 46 VBG Base Excess 6 H Quality Measures Quality Measures VTE prophylaxis Assessment & Plan Assessment Current Active Medications: Generic Name Dose Route Start Last Admin Trade Name Remi PRN Reason Stop Dose Admin Ascorbic Acid 500 mg 09/21/25 21:00 10/01/25 09:32 Ascorbic Acid 250 Mg Tablet PO 10/21/25 20:59 500 mg BID WALTER Administration Cadexomer Iodine 0 gm 09/28/25 09:00 09/30/25 09:00 Cadexomer Iodine Gel 40 Gm Tube TOP 10/05/25 08:59 Not Given Q2D WALTER Clotrimazole 0 gm 09/30/25 14:00 10/01/25 09:32 Clotrimazole Cr 1% 30 Gm Tube TOP 10/30/25 13:59 1 applicatio BID WALTER Administration Dextrose 25 ml 09/17/25 19:54 Dextrose 50%-Water Inj 50 Ml Syringe IV 10/17/25 19:53 Q15MIN PRN BG 50-70 responsive npo pt Dextrose 50 ml 09/17/25 19:54 Dextrose 50%-Water Inj 50 Ml Syringe IV 10/17/25 19:53 Q15MIN PRN BG <50 OR BG <70 & pt unresponsive Gabapentin 200 mg 09/18/25 14:00 10/01/25 05:07 Gabapentin 100 Mg Capsule PO 10/18/25 13:59 200 mg TID WALTER Administration Glucagon 1 mg 09/17/25 19:54 Glucagon Inj 1 Mg Vial IM Q15MIN PRN BG <70, and no IV access Heparin Sodium (Porcine) 5,000 unit 09/22/25 21:00 10/01/25 09:38 Heparin Sod Inj 5000 Unit/Ml Vial SC 10/06/25 20:59 Not Given Q12HR WALTER Insulin Degludec 36 unit 09/27/25 21:00 09/30/25 20:25 Insulin Degludec 5 Unit/0.05 Ml (Per 5 Units) SC 10/27/25 20:59 36 unit HS WALTER Administration Insulin Human Lispro 0 unit 09/20/25 17:00 10/01/25 11:45 Insulin Lispro (Admelog) 1 Unit/0.01 Ml Unit SC 10/20/25 16:59 Not Given ACHS [facility] Protocol Insulin Human Lispro 5 unit 09/29/25 17:00 10/01/25 07:24 Insulin Lispro (Admelog) 1 Unit/0.01 Ml Unit SC 10/29/25 16:59 5 unit AC WALTER Administration Multivitamins/Minerals 15 ml 09/22/25 09:00 10/01/25 09:31 Multivitamin 15 Ml Udc PO 10/22/25 08:59 15 ml QDAY WALTER Administration Ondansetron HCl 4 mg 09/17/25 15:09 Ondansetron Inj 2 Mg/Ml Inj 2 Ml IVP 10/17/25 15:08 Q6H PRN NAUSEA OR VOMITING Protocol Oxycodone HCl 5 mg 09/30/25 10:12 10/01/25 10:30 Oxycodone Hcl 5 Mg Ir Tab PO 10/05/25 10:11 5 mg Q4H PRN Administration PAIN SCALE 4-10(Mod-Sev Protocol Pantoprazole Sodium 40 mg 11/21/25 22:30 10/01/25 09:31 Pantoprazole Inj 40 Mg Vial IVP 10/21/25 22:29 40 mg QDAY WALTER Administration Sennosides 1 tab 09/22/25 21:00 09/30/25 20:21 Senna/Docusate Sod 1 Tab Tablet PO 10/22/25 20:59 1 tab HS WALTER Administration Protocol Zinc Sulfate 220 mg 09/22/25 09:00 10/01/25 09:32 Zinc Sulfate 220 Mg Capsule PO 10/05/25 08:59 220 mg QDAY WALTER Administration Plan Mr. Carrera is a 55 year old gentleman with a hx of T2DM- poorly controlled (a1c 10) with no active PCP managment who presented to the ed on 09/17 10 days after a fall from a ladder resulting in injury of his R foot and subsequent errythema and swelling, found to have R foot abscess concerning for nec fasc, s/p incision and drainage with Dr. Ruffin on 09/17, on IV broad spectrum antibiotics, with plan for likely subsequent incisions and drainages, and possible amputation.leukocytosis downtrending. possible bka, patient to discuss with surgeon today. #R foot abscess s/p I&D x3 #Thrombocytosis -pt presented 10 days after falling off of a ladder at work. he states that his foot got caught in the rung of the ladder and that he fell backwards and twisted and injured his ankle. he did not seek medical attention at that time. His pain and swelling worsened and he experienced chills which prompted him to present to the ED. suspect that R foot wound did not heal 2/2 poorly controlled DM and immuno- compromised state and poor peripheral perfusion. leukocytosis is downtrending, lots of pus expressed during wound care on 09/19 - Foot CT: Extensive soft tissue infection with gas-forming organisms involving all of the soft tissues of the foot - s/p I and D with Dr. Ruffin 09/17, 09/20 and 09/25 - 09/21-09/24 with wound vac and straw colored copious output. Plan: - Surgery consulted, appreciate recs Dr. Ruffin, BKA likely Tuesday 10/02; patient agreeable - Oxycodone 5 mg q4hr prn for moderate to severe pain. - Gabapentin 200 mg TID- Pt reports that it makes him very tired but with minimal relief of his foot pain - Morphine 2 mg IV q4h prn - Incentive spirometry for atelectasis/PNA ppx - Wound care consulted, appreciate recs - Vit C 500mg BID - Zinc Sulfate 220mg qd for 14 days (09/22- 10/05 end date) - Multivitamin 15 ml QD #Type 2 diabetes mellitus- poorly controlled -A1c 10.7 and BG 412 on admission -P states that he was diagnosed with dm in 2014, by his pcp and was not initiated on any medication therapies at that time. he was lost to follow up and has not been seen by a PCP since that time. pt states that he initiated dietary changes with intent to control his dm. Plan: - Lispro 5 units TID with meals - Degludec 36 units qhs (increased 7-->10-->15-->20-->25-->30-->36) - ISS step 3 - ACHS Bedside glucose checks - Diet, carb consistent - Diabetes education - Dietition consulted, appreciate recs AYSE - likely prerenal vs intrarenal - resolved Plan - Encourage PO intake #Normocytic Anemia Hemoglobin was downtrending, stable, likely post surgical Plan - Will ctm hgb and for signs/symptoms of blood loss - Will Transfuse if hemoglobin drops <7 #Constipation- resolved concern given constipating medications the patient is on, opioids for pain patient continues to have regular BM, - CTM - senna and docusate qd Mild hyponatremia - resolved Mild hypochloremia - resolved Hypophosphatemia (Resolved) Corrected sodium 135 based on current glucose Plan: - Monitor for now Dispo: Med tele. Patient agreeable to BKA Diet: NPO after midnight (Carb consistent) Bowel Reg: senna/docusate scheduled, given opioids given for pain VTE ppx: Heparin GI ppx: protonix qd 40 iv Code status: FULL Patient plan of care was discussed with the attending physician, Dr. Steinberg & senior resident Dr. Willie Blake MD PGY-1 Attending Provider Attestation/Addendum I have seen and examined the patient. I was physically present for the [place] portions of the services provided including history, physical exam, diagnosis, treatment plans and orders. I agree with assessment and plan of care as documented by residents. Patient seen and examined at bedside this morning. No acute overnight events. Continues to complain of right foot pain, manageable with IV analgesics. Patient was on ketorolac but has been on maximum allowed course, we will switch him to IV morphine. Plan for BKA tomorrow with general surgery, we will keep him n.p.o. after midnight. Already completed 14 days of IV antibiotics, we will discontinue the antibiotics. Even though this this note was carefully revised there may still be minor errors in glove maker due to voice recognition software. Juventino Steinberg MD
[2025-10-01 12:00] VITALS: BP 124/69; PULSE 78; PULSE 85; RESP 19; TEMP 36.5; O2SAT 98
[2025-10-01] MEDS: MORPHINE SULF INJ 4 MG/ML VIAL 5 MG IVP (15:11)
--- NOTE | 2025-10-01 15:57 | PD.SURPROG ---
Documentation for date of: 09/30/25 Subjective Subjective Brief History: 55M with DMII not on medications (pt states he was told he had preDM but had not followed up) presenting with right foot pain, redness and fatigue. Pt states he fell off a ladder on 09/05 and since then noted worsening pain and appearance of his right foot as well as fatigue. In ER he is found to have WBC 25, A1c [address] showing extensive gas and abscess of R foot PMH: DMII (not on meds) PSHx: None Meds: None Allergies: NKDA Social hx: Nonsmoker Narrative: Pt reporting pain controlled, no other complaints, would like to proceed with amputation on 10/02 Exam Vital Signs Temp Pulse Resp BP Pulse Ox O2 Del Method O2 Flow Rate 97.7 F 78 19 124/69 98 Room Air 4 10/01/25 12:00 10/01/25 12:00 10/01/25 12:00 10/01/25 12:00 10/01/25 12:00 10/01/25 12:00 09/25/25 16:00 Constitutional Constitutional: no acute distress Routine Respiratory Exam Respiratory: Present no resp distress Results Results: Laboratory Laboratory results: results reviewed Assessment & Plan Plan 55M with DMII not on meds (A1c 10) presenting with extensive right foot abscess, no signs of osteomyelitis s/p I&D 09/17 and debridement 09/20 and 09/26, with ongoing necrotic tissue. Pt understands that his foot is not likely to regain meaningful function and is now agreeable to pursuing L BKA. I explained benefits/risks including bleeding, wound infection and postoperative pain. All questions were answered and pt agrees to proceed NPO after MN for L BKA 10/02 (afternoon) PROCEDURES: Procedures Excisional debridement of right foot wounds
[2025-10-01 16:00] VITALS: BP 143/75; PULSE 90; PULSE 98; RESP 16; TEMP 37.8; O2SAT 98
[2025-10-01] MEDS: MORPHINE SULF INJ 4 MG/ML VIAL 2 MG IVP ×2 (19:27→23:33)
[2025-10-01 20:00] VITALS: BP 124/61; PULSE 97; PULSE 98; RESP 18; TEMP 36.9; O2SAT 97
[2025-10-01] MEDS: SENNA/DOCUSATE SOD 1 TAB TABLET PO (21:06)
[2025-10-01] MEDS: INSULIN LISPRO (AdmeLOG) 1 UNIT/0.01 ML UNIT SC (21:07)
[2025-10-01] MEDS: INSULIN DEGLUDEC 5 UNIT/0.05 ML (PER 5 UNITS) 36 UNIT SC (21:07)
[2025-10-01] MEDS: HEPARIN SOD INJ 5000 UNIT/ML VIAL SC (21:08)
[2025-10-02] VITALS (22 sets, daily range): BP systolic 84–135; BP diastolic 55–87; PULSE 79–98; RESP 12–19; TEMP 35.9–37.1; O2SAT 96–100
[2025-10-02] MEDS: oxyCODONE HCL 5 MG IR TAB PO ×5 (02:33→23:42)
[2025-10-02] MEDS: MORPHINE SULF INJ 4 MG/ML VIAL 2 MG IVP ×5 (03:34→22:42)
[2025-10-02] MEDS: GABAPENTIN 100 MG CAPSULE 200 MG PO ×3 (05:55→21:12)
[2025-10-02 06:29] LABS: Basophils # (Auto) 0.1 Thou/mm3 (0.0-0.2); Basophils % (Auto) 1 % (0-2.5); Eosinophils # (Auto) 0.2 Thou/mm3 (0.0-0.5); Eosinophils % (Auto) 1 % (0-10); Hematocrit 24.2 % (41.0-53.0); Immature Granulocytes Auto 0.17 Thou/mm3 (0.00-0.00); Lymphocytes # (Auto) 2.2 Thou/mm3 (1.0-4.8); Lymphocytes % (Auto) 16 % (10-50); Mean Corpuscular HGB Conc 32.6 g/dl (31.0-37.0); Mean Corpuscular Hemoglobin 28.7 pg (25.0-35.0); Mean Corpuscular Volume 88 fL (80-100); Monocytes # (Auto) 1.1 Thou/mm3 (0.0-0.8); Monocytes % (Auto) 8 % (0-12); Neutrophils # (Auto) 9.9 Thou/mm3 (1.8-7.7); Neutrophils % (Auto) 73 % (37-80); Nucleated Red Blood Cell # 0.00 Thou/mm3 (0.00-0.00); Nucleated Red Blood Cell % 0 /100 WBC (0); Platelet Count 692 Thou/mm3 (140-440); RDW Standard Deviation 44.9 fL (35.1-43.9); Red Blood Count 2.75 Miln/mm3 (4.50-5.90); White Blood Count 13.6 Thou/mm3 (3.8-10.6)
[2025-10-02 08:00] LABS: Hemoglobin 7.9 g/dL (13.5-16.0)
[2025-10-02] MEDS: ZINC SULFATE 220 MG CAPSULE PO (08:05)
[2025-10-02] MEDS: ASCORBIC ACID 250 MG TABLET 500 MG PO ×2 (08:05→21:12)
[2025-10-02] MEDS: MULTIVITAMIN 15 ML UDC PO (08:05)
[2025-10-02] MEDS: HEPARIN SOD INJ 5000 UNIT/ML VIAL SC ×2 (08:05→21:11)
[2025-10-02] MEDS: CLOTRIMAZOLE CR 1% 30 GM TUBE TOP ×2 (08:12→22:37)
[2025-10-02] MEDS: CADEXOMER IODINE GEL 40 GM TUBE TOP (08:13)
[2025-10-02 08:16] LABS: Alanine Aminotransferase 74 U/L (10-49); Albumin, Serum 3.3 gm/dL (3.5-5.0); Alkaline Phosphatase 248 U/L (46-116); Anion Gap 9 (7-16); Aspartate Amino Transferase 88 U/L (0-34); BUN/Creatinine Ratio 15 Ratio (12-20); Bilirubin,Total 0.5 mg/dL (0.3-1.2); Blood Urea Nitrogen 12 mg/dL (9-23); Calcium 8.6 mg/dL (8.3-10.6); Calcium (Corrected) 9.2 mg/dL (8.5-10.1); Carbon Dioxide 28.9 mMol/L (20.0-31.0); Chloride 96 mMol/L (98-107); Creatinine (Component) 0.8 mg/dL (0.6-1.3); Estimated Creatinine Clearance 102.1 mL/min (>60); Glucose 119 mg/dL (74-106); Magnesium 1.8 mg/dL (1.6-2.6); Osmolality,Calculated 268 (275-295); Phosphorous 4.2 mg/dL (2.4-5.1); Potassium 4.0 mMol/L (3.4-5.1); Sodium 134 mMol/L (136-145); eGFR > 60 See Note
[2025-10-02 13:05] LABS: Albumin/Globulin Ratio 0.7 (1.2-2.2); Globulin 4.8 gm/dL (2.3-3.5); Total Protein 8.1 gm/dL (5.7-8.2)
--- NOTE | 2025-10-02 13:18 | ESPR_ITS ---
<Statement entered by Mohinder Crowley MD - 10/02/25 16:25> No acute overnight events. Seen and examined at bedside and resting comfortably in bed. States that pain is well-managed with current regimen. Plans to go to the OR today for further management of his right lower extremity. Blood sugars have been well-controlled on current regimen. Will follow-up on further recommendations from general surgery after procedure. ----- Note reviewed and agree with care plan as documented. Please refer to the note below for further details. Plan discussed with attending physician Dr. Noah Crowley MD PGY-2 Internal Medicine Documentation for date of: 10/02/25 Subjective Subjective Interval history: Patient had no acute overnight events. Patient's pain is well controlled. Vitals are stable. Plan to go to OR today for BKA. Patient has no concerns. Exam Vital Signs Temp Pulse Resp BP Pulse Ox O2 Del Method O2 Flow Rate 97.0 F 90 19 120/69 99 Room Air 4 10/02/25 12:00 10/02/25 12:00 10/02/25 12:00 10/02/25 12:00 10/02/25 12:00 10/02/25 12:00 09/25/25 16:00 Narrative Exam General: Awake and in no acute distress. Conversational and non-toxic appearing. Neurologic: GCS 15. Alert and oriented x3, no gross neurological deficit, and patient able to move all 4 extremities. HEENT: Normocephalic, atraumatic, mucous membranes moist. Pupils reactive to light. Heart: Regular rate and rhythm, normal S1 and S2, no murmurs. Lungs: Clear to auscultation bilaterally with no wheezing or crackles. Abdomen: Soft, nondistended, nontender, positive bowel sounds. No guarding or rebound tenderness. Extremities: Right foot has circumferential wounds, foot is wrapped clean Skin: Warm. Dry. No rash or ecchymoses. Objective Labs 10/03/25 02:04 10/03/25 02:04 Labs: Laboratory Results - last 24 hr 10/02/25 10/02/25 05:53 12:20 WBC 13.6 H RBC 2.75 L Hgb 7.9 L Hct 24.2 L MCV 88 MCH 28.7 MCHC 32.6 RDW Std Deviation 44.9 H Plt Count 692 H D Neut % (Auto) 73 Lymph % (Auto) 16 [place] % (Auto) 8 Eos % (Auto) 1 Baso % (Auto) 1 Neut # (Auto) 9.9 H Lymph # (Auto) 2.2 [place] # (Auto) 1.1 H Eos # (Auto) 0.2 Baso # (Auto) 0.1 Immature Gran # (Auto) 0.17 H Absolute Nucleated RBC 0.00 Immature Gran % 1 H Nucleated RBC % 0 Sodium 134 L Potassium 4.0 D Chloride 96 L Carbon Dioxide 28.9 Anion Gap 9 BUN 12 Creatinine 0.8 Estim Creat Clear Calc 102.1 eGFR > 60 BUN/Creatinine Ratio 15 Glucose 119 H D Calculated Osmolality 268 L Calcium 8.6 Corrected Calcium 9.2 Phosphorus 4.2 Magnesium 1.8 Total Bilirubin 0.5 AST 88 H ALT 74 H Alkaline Phosphatase 248 H D Total Protein 8.1 Albumin 3.3 L Globulin 4.8 H Albumin/Globulin Ratio 0.7 L Blood Type O Positive Crossmatch See Detail Blood Bank Wristband ID Yes ABG Interpretation ABG results: 09/17/25 09:45 VBG pH 7.48 VBG pCO2 41 VBG pO2 46 VBG Base Excess 6 H Quality Measures Quality Measures VTE prophylaxis Assessment & Plan Assessment Current Active Medications: Generic Name Dose Route Start Last Admin Trade Name Freq PRN Reason Stop Dose Admin Ascorbic Acid 500 mg 09/21/25 21:00 10/02/25 08:05 Ascorbic Acid 250 Mg Tablet PO 10/21/25 20:59 500 mg BID WALTER Administration Cadexomer Iodine 0 gm 09/28/25 09:00 10/02/25 08:13 Cadexomer Iodine Gel 40 Gm Tube TOP 10/05/25 08:59 40 gm Q2D WALTER Administration Clotrimazole 0 gm 09/30/25 14:00 10/02/25 08:12 Clotrimazole Cr 1% 30 Gm Tube TOP 10/30/25 13:59 1 applicatio BID WALTER Administration Dextrose 25 ml 09/17/25 19:54 Dextrose 50%-Water Inj 50 Ml Syringe IV 10/17/25 19:53 Q15MIN PRN BG 50-70 responsive npo pt Dextrose 50 ml 09/17/25 19:54 Dextrose 50%-Water Inj 50 Ml Syringe IV 10/17/25 19:53 Q15MIN PRN BG <50 OR BG <70 & pt unresponsive Gabapentin 200 mg 09/18/25 14:00 10/02/25 05:55 Gabapentin 100 Mg Capsule PO 10/18/25 13:59 200 mg TID WALTER Administration Glucagon 1 mg 09/17/25 19:54 Glucagon Inj 1 Mg Vial IM Q15MIN PRN BG <70, and no IV access Heparin Sodium (Porcine) 5,000 unit 09/22/25 21:00 10/02/25 08:05 Heparin Sod Inj 5000 Unit/Ml Vial SC 10/06/25 20:59 5,000 unit Q12HR WALTER Administration Insulin Degludec 36 unit 09/27/25 21:00 10/01/25 21:07 Insulin Degludec 5 Unit/0.05 Ml (Per 5 Units) SC 10/27/25 20:59 36 unit HS WALTER Administration Insulin Human Lispro 0 unit 09/20/25 17:00 10/02/25 11:37 Insulin Lispro (Admelog) 1 Unit/0.01 Ml Unit SC 10/20/25 16:59 Not Given ACHS [facility] Protocol Insulin Human Lispro 5 unit 09/29/25 17:00 10/02/25 11:38 Insulin Lispro (Admelog) 1 Unit/0.01 Ml Unit SC 10/29/25 16:59 Not Given AC [facility] Morphine Sulfate 2 mg 10/01/25 16:03 10/02/25 12:06 Morphine Sulf Inj 4 Mg/Ml Vial IVP 10/06/25 14:01 2 mg Q4HR PRN Administration PAIN SCALE 7-10 (Severe Protocol Multivitamins/Minerals 15 ml 09/22/25 09:00 10/02/25 08:05 Multivitamin 15 Ml Udc PO 10/22/25 08:59 15 ml QDAY WALTER Administration Ondansetron HCl 4 mg 09/17/25 15:09 Ondansetron Inj 2 Mg/Ml Inj 2 Ml IVP 10/17/25 15:08 Q6H PRN NAUSEA OR VOMITING Protocol Oxycodone HCl 5 mg 09/30/25 10:12 10/02/25 10:54 Oxycodone Hcl 5 Mg Ir Tab PO 10/05/25 10:11 5 mg Q4H PRN Administration PAIN SCALE 4-10(Mod-Sev Protocol Pantoprazole Sodium 40 mg 09/21/25 22:30 10/02/25 08:05 Pantoprazole Inj 40 Mg Vial IVP 10/21/25 22:29 40 mg QDAY WALTER Administration Sennosides 1 tab 09/22/25 21:00 10/01/25 21:06 Senna/Docusate Sod 1 Tab Tablet PO 10/22/25 20:59 1 tab HS WALTER Administration Protocol Zinc Sulfate 220 mg 09/22/25 09:00 10/02/25 08:05 Zinc Sulfate 220 Mg Capsule PO 10/05/25 08:59 220 mg QDAY WALTER Administration Plan Mr. Carrera is a 55 year old gentleman with a hx of T2DM- poorly controlled (a1c 10) with no active PCP managment who presented to the ed on 09/17 10 days after a fall from a ladder resulting in injury of his R foot and subsequent errythema and swelling, found to have R foot abscess concerning for nec fasc, s/p incision and drainage with Dr. Ruffin on 09/17, on IV broad spectrum antibiotics, with plan for likely subsequent incisions and drainages, and possible amputation.leukocytosis downtrending. possible bka, patient to discuss with surgeon today. #R foot abscess s/p I&D #Thrombocytosis -pt presented 10 days after falling off of a ladder at work. he states that his foot got caught in the rung of the ladder and that he fell backwards and twisted and injured his ankle. he did not seek medical attention at that time. His pain and swelling worsened and he experienced chills which prompted him to present to the ED. suspect that R foot wound did not heal 2/2 poorly controlled DM and immuno- compromised state and poor peripheral perfusion. leukocytosis is downtrending, lots of pus expressed during wound care on 09/19 - Foot CT: Extensive soft tissue infection with gas-forming organisms involving all of the soft tissues of the foot - s/p I and D with debrident with Dr. Ruffin 09/17, 09/20 and debridement on 09/25 - 09/21-09/24 with wound vac and straw colored copious output. Plan: - Surgery consulted, appreciate recs Dr. Ruffin, JACKIE Tuesday 10/02 - Oxycodone 5 mg q4hr prn for moderate to severe pain. - Gabapentin 200 mg TID- Pt reports that it makes him very tired but with minimal relief of his foot pain - Morphine 2 mg IV q4h prn - Incentive spirometry for atelectasis/PNA ppx - Wound care consulted, appreciate recs - Vit C 500mg BID - Zinc Sulfate 220mg qd for 14 days (09/22- 10/05 end date) - Multivitamin 15 ml QD #Type 2 diabetes mellitus- poorly controlled -A1c 10.7 and BG 412 on admission -P states that he was diagnosed with dm in 2014, by his pcp and was not initiated on any medication therapies at that time. he was lost to follow up and has not been seen by a PCP since that time. pt states that he initiated dietary changes with intent to control his dm. Plan: - Lispro 5 units TID with meals - Degludec 36 units qhs (increased 7-->10-->15-->20-->25-->30-->36) - ISS step 3 - ACHS Bedside glucose checks - Diet, carb consistent - Diabetes education - Dietition consulted, appreciate recs - Will give Freestyle Wes on discharge #Normocytic Anemia Hemoglobin was downtrending, stable, likely post surgical Plan - Will ctm hgb and for signs/symptoms of blood loss - Will Transfuse if hemoglobin drops <7 #Constipation- resolved concern given constipating medications the patient is on, opioids for pain patient continues to have regular BM, - CTM - senna and docusate qd Mild hyponatremia Sodium 134 on 10/02 from 135 previous day. Plan: - Monitor for now Dispo: Med tele Diet: NPO after midnight for BKA 10/02 (Carb consistent) Bowel Reg: senna/docusate scheduled, given opioids given for pain VTE ppx: Heparin GI ppx: protonix qd 40 iv Code status: FULL Patient plan of care was discussed with the attending physician, Dr. Zamora & senior resident Dr. Willie Blake MD PGY-1 Attending Provider Attestation/Addendum I, Nadege Zamora DO, attest that I was physically present for the [place] portions of the service and evaluated the patient with the resident and I reviewed and discussed the case with the resident and agree with the resident's findings and plans of care as documented above Patient seen and evaluated this AM. He states he is feeling well and denies any pain, chest pain, shortness of breath, fevers or chills at this time. Pending BKA this afternoon. Dressing over right lower extremitiy is clean, dry and intact otherwise. Case discussed with surgeon.
--- NOTE | 2025-10-02 16:38 | PD.SUROPNT ---
Date of Procedure 10/02/25 Pre Op Diagnosis Right foot infection refractory to debridement and wound care Post Op Diagnosis Same Procedure Excisional debridement of right foot wounds Findings Right foot infection with pus tracking to lower leg Procedure Description After discussion of risks and benefits, patient was brought to the operating room and spinal anesthesia was administered. Patient was placed supine and was given sedation. He was prepped and draped in the usual sterile fashion. The incision was marked out 12 cm distal to the tibial tuberosity. The anterior flap was marked out to be two thirds of the circumference while the posterior flap was marked out as one third of the circumference of the lower leg. The incision was made with a #10 blade and the subcutaneous tissues were divided with electrocautery. Perforating vessels were tied as needed. The superficial peroneal nerve was identified, clamped and cut. The anterior compartment was divided with electrocautery. The anterior neurovascular bundle was identified, clamped and cut. The periosteum of the tibia was elevated proximally along with the fibula. The tibia was transected with a saw approximately 1.5 cm proximal to the skin incision. It was beveled anteriorly and smoothed down with a rasp. The periosteum of the fibula was elevated and the fibula was transected approximately 1 cm proximal to the tibia. The tibial vessels were identified, clamped and cut. The remaining posterior compartment was divided. The peroneal bundle was identified, clamped and cut. The tissues posterior to the tibia and fibula were transected with a #20 blade and the specimen was passed off the field. During this process there was a pocket of pus noted at the distal leg. The wound was irrigated with Betadine and saline. Small points of bleeding were controlled with ties and electrocautery. The posterior flap was debulked as necessary. The gastroc soleus fascia was brought up and sutured to the anterior fascia and periosteum using interrupted buried 2-0 Vicryl sutures. The skin was closed with jane. The incision was covered with Adaptic, fluffs and wrapped with Kerlix followed by an Darrian wrap. Patient was awoken and brought to PACU in stable condition Pathology / specimen Other (Right foot) Estimated Blood Loss 500 Surgeon Kimmie Ruffin MD Surgical Staff Operation Date: 10/02/25 13:30 Case Staff BATTERY CONTAINER TESTER: Sumit Mcleod RN First Assistant: Lindsey Glass
--- NOTE | 2025-10-02 16:45 | SUR.PHASEI ---
1645: Pt. AAOx4, vitals stable, breathing unlabored, no complaint of pain or nausea, dressing to right lower extremity CDI, no active bleed noted, bilateral femoral pulses strong and regular, report received from Bernadine FABIAN and Bry PABON.
[2025-10-02] MEDS: fentaNYL CIT INJ 50 mCg/ML AMP 2ML 25 MCG IVP ×2 (18:04→18:12)
--- NOTE | 2025-10-02 18:19 | SUR.PHASEI ---
1819: Pt. AAOx4, vitals stable, breathing unlabored, no complaint of pain or nausea, dressing to right lower extremity CDI, right femoral pulse strong and regular, no active bleed noted, pt. tolerated sips of diet 7up well, gave report to Willy FABIAN prior to transfer to room 382.
[2025-10-02] MEDS: INSULIN LISPRO (AdmeLOG) 1 UNIT/0.01 ML UNIT SC (21:11)
[2025-10-02] MEDS: INSULIN DEGLUDEC 5 UNIT/0.05 ML (PER 5 UNITS) 36 UNIT SC (21:12)
[2025-10-02] MEDS: SENNA/DOCUSATE SOD 1 TAB TABLET PO (21:12)
[2025-10-03] VITALS (9 sets, daily range): BP systolic 104–135; BP diastolic 61–87; PULSE 80–96; RESP 16–19; TEMP 36.3–37.1; O2SAT 96–99
[2025-10-03] MEDS: MORPHINE SULF INJ 4 MG/ML VIAL 1 MG IVP (00:44)
[2025-10-03] MEDS: MORPHINE SULF INJ 4 MG/ML VIAL 2 MG IVP ×6 (02:30→22:06)
[2025-10-03 04:17] LABS: Basophils # (Auto) 0.1 Thou/mm3 (0.0-0.2); Basophils % (Auto) 0 % (0-2.5); Eosinophils # (Auto) 0.1 Thou/mm3 (0.0-0.5); Eosinophils % (Auto) 1 % (0-10); Hematocrit 27.6 % (41.0-53.0); Hemoglobin 9.1 g/dL (13.5-16.0); Immature Granulocytes Auto 0.18 Thou/mm3 (0.00-0.00); Lymphocytes # (Auto) 1.5 Thou/mm3 (1.0-4.8); Lymphocytes % (Auto) 13 % (10-50); Mean Corpuscular HGB Conc 33.0 g/dl (31.0-37.0); Mean Corpuscular Hemoglobin 28.2 pg (25.0-35.0); Mean Corpuscular Volume 85 fL (80-100); Monocytes # (Auto) 0.9 Thou/mm3 (0.0-0.8); Monocytes % (Auto) 8 % (0-12); Neutrophils # (Auto) 8.9 Thou/mm3 (1.8-7.7); Neutrophils % (Auto) 77 % (37-80); Nucleated Red Blood Cell # 0.00 Thou/mm3 (0.00-0.00); Nucleated Red Blood Cell % 0 /100 WBC (0); Platelet Count 663 Thou/mm3 (140-440); RDW Standard Deviation 45.5 fL (35.1-43.9); Red Blood Count 3.23 Miln/mm3 (4.50-5.90); White Blood Count 11.6 Thou/mm3 (3.8-10.6)
[2025-10-03] MEDS: oxyCODONE HCL 5 MG IR TAB PO ×2 (04:29→08:57)
[2025-10-03 04:42] LABS: Alanine Aminotransferase 86 U/L (10-49); Albumin, Serum 3.3 gm/dL (3.5-5.0); Albumin/Globulin Ratio 0.7 (1.2-2.2); Alkaline Phosphatase 294 U/L (46-116); Anion Gap 9 (7-16); Aspartate Amino Transferase 113 U/L (0-34); BUN/Creatinine Ratio 15 Ratio (12-20); Bilirubin,Total 0.7 mg/dL (0.3-1.2); Blood Urea Nitrogen 12 mg/dL (9-23); Calcium 7.8 mg/dL (8.3-10.6); Calcium (Corrected) 8.4 mg/dL (8.5-10.1); Carbon Dioxide 26.2 mMol/L (20.0-31.0); Chloride 97 mMol/L (98-107); Creatinine (Component) 0.8 mg/dL (0.6-1.3); Estimated Creatinine Clearance 102.1 mL/min (>60); Globulin 4.6 gm/dL (2.3-3.5); Glucose 195 mg/dL (74-106); Magnesium 1.6 mg/dL (1.6-2.6); Osmolality,Calculated 269 (275-295); Phosphorous 3.0 mg/dL (2.4-5.1); Potassium 4.4 mMol/L (3.4-5.1); Sodium 132 mMol/L (136-145); Total Protein 7.9 gm/dL (5.7-8.2); eGFR > 60 See Note
[2025-10-03] MEDS: GABAPENTIN 100 MG CAPSULE 200 MG PO ×3 (06:37→21:09)
[2025-10-03] MEDS: INSULIN LISPRO (AdmeLOG) 1 UNIT/0.01 ML UNIT 5 UNIT SC ×3 (07:53→17:26)
[2025-10-03] MEDS: ASCORBIC ACID 250 MG TABLET 500 MG PO ×2 (08:58→20:37)
[2025-10-03] MEDS: ZINC SULFATE 220 MG CAPSULE PO (08:58)
[2025-10-03] MEDS: HEPARIN SOD INJ 5000 UNIT/ML VIAL SC ×2 (08:58→20:38)
[2025-10-03] MEDS: MULTIVITAMIN 15 ML UDC PO (08:58)
[2025-10-03] MEDS: MORPHINE SULF INJ 4 MG/ML VIAL 3 MG IVP (10:38)
--- NOTE | 2025-10-03 11:24 | PD.SURPROG ---
Documentation for date of: 10/03/25 Subjective Subjective Brief History: 55M with DMII not on medications (pt states he was told he had preDM but had not followed up) presenting with right foot pain, redness and fatigue. Pt states he fell off a ladder on 09/05 and since then noted worsening pain and appearance of his right foot as well as fatigue. In ER he is found to have WBC 25, A1c [address] showing extensive gas and abscess of R foot PMH: DMII (not on meds) PSHx: None Meds: None Allergies: NKDA Social hx: Nonsmoker Narrative: Pain controlled with increase in morphine and norco, Hgb 9.1 after 2u PRBC, feeling well overall with finger sticks in 100s Exam Vital Signs Temp Pulse Resp BP Pulse Ox O2 Del Method O2 Flow Rate 97.3 F 96 18 123/72 97 Room Air 4 10/03/25 11:13 10/03/25 11:13 10/03/25 11:13 10/03/25 11:13 10/03/25 11:13 10/03/25 11:13 10/02/25 20:34 Constitutional Constitutional: no acute distress Routine Respiratory Exam Respiratory: Present no resp distress Routine Extremities Exam Comments: RLE dressing c/d/i Results Results: Laboratory Laboratory results: results reviewed Assessment & Plan Plan 55M with DMII not on meds (A1c 10) presenting with extensive right foot abscess, no signs of osteomyelitis s/p I&D 09/17 and debridement 09/20 and 09/26, followed by [facility] 10/02, recovering well Dressing change tomorrow PROCEDURES: Procedures Excisional debridement of right foot wounds
[2025-10-03] MEDS: INSULIN LISPRO (AdmeLOG) 1 UNIT/0.01 ML UNIT SC ×3 (11:46→20:38)
--- NOTE | 2025-10-03 11:51 | ESPR_ITS ---
<Statement entered by Mohinder Crowley MD - 10/03/25 15:11> No acute overnight events. Seen and examined at bedside and underwent successful BKA yesterday and was transfused 2 units PRBCs afterwards. Patient states that his pain becomes pretty significant when it comes close to his next dosage. Will adjust pain regimen to accommodate. Touch base with general surgery and stated that he is clear for discharge on . ----- Note reviewed and agree with care plan as documented. Please refer to the note below for further details. Plan discussed with attending physician Dr. Noah Crowley MD PGY-2 Internal Medicine Documentation for date of: 10/03/25 Subjective Subjective Interval history: Patient had no acute overnight events. Patient had a sucessful BKA of right extremity yesterday with 500 ml blood loss and was given 2 units prbc's. Patient says this morning the pain is worse than yesterday. Patient is looking forward to moving on and getting control of his diabetes. States he will get a new phone so that he can use the free style dea to monitor his glucose. Will continue to monitor the patient s/p BKA and plan to discharge tomorrow. Exam Vital Signs Temp Pulse Resp BP Pulse Ox O2 Del Method O2 Flow Rate 97.3 F 96 18 123/72 97 Room Air 4 10/03/25 11:13 10/03/25 11:13 10/03/25 11:13 10/03/25 11:13 10/03/25 11:13 10/03/25 11:13 10/02/25 20:34 Narrative Exam General: Awake and in no acute distress. Conversational and non-toxic appearing. Neurologic: GCS 15. Alert and oriented x3, no gross neurological deficit, and patient able to move all 4 extremities. HEENT: Normocephalic, atraumatic, mucous membranes moist. Pupils reactive to light. Heart: Regular rate and rhythm, normal S1 and S2, no murmurs. Lungs: Clear to auscultation bilaterally with no wheezing or crackles. Abdomen: Soft, nondistended, nontender, positive bowel sounds. No guarding or rebound tenderness. Extremities: Right Lower Extremity (s/p BKA) wrapped clean/dry Skin: Warm. Dry. No rash or ecchymoses. Objective Labs 10/04/25 11:12 10/04/25 11:12 Labs: Laboratory Results - last 24 hr 10/02/25 10/02/25 10/03/25 05:53 12:20 02:04 WBC 11.6 H RBC 3.23 L Hgb 9.1 L Hct 27.6 L MCV 85 MCH 28.2 MCHC 33.0 RDW Std Deviation 45.5 H Plt Count 663 H Neut % (Auto) 77 Lymph % (Auto) 13 Preston % (Auto) 8 Eos % (Auto) 1 Baso % (Auto) 0 Neut # (Auto) 8.9 H Lymph # (Auto) 1.5 Preston # (Auto) 0.9 H Eos # (Auto) 0.1 Baso # (Auto) 0.1 Immature Gran # (Auto) 0.18 H Absolute Nucleated RBC 0.00 Immature Gran % 2 H Nucleated RBC % 0 Sodium 132 L Potassium 4.4 Chloride 97 L Carbon Dioxide 26.2 Anion Gap 9 BUN 12 Creatinine 0.8 Estim Creat Clear Calc 102.1 eGFR > 60 BUN/Creatinine Ratio 15 Glucose 195 H D Calculated Osmolality 269 L Calcium 7.8 L Corrected Calcium 8.4 L Phosphorus 3.0 Magnesium 1.6 Total Bilirubin 0.7 AST 113 H ALT 86 H Alkaline Phosphatase 294 H D Total Protein 8.1 7.9 Albumin 3.3 L Globulin 4.8 H 4.6 H Albumin/Globulin Ratio 0.7 L 0.7 L Blood Type O Positive Antibody Screen NEGATIVE Crossmatch See Detail Blood Bank Wristband ID Yes ABG Interpretation ABG results: 09/17/25 09:45 VBG pH 7.48 VBG pCO2 41 VBG pO2 46 VBG Base Excess 6 H Quality Measures Quality Measures VTE prophylaxis Assessment & Plan Assessment Current Active Medications: Generic Name Dose Route Start Last Admin Trade Name Freq PRN Reason Stop Dose Admin Ascorbic Acid 500 mg 09/21/25 21:00 10/03/25 08:58 Ascorbic Acid 250 Mg Tablet PO 10/21/25 20:59 500 mg BID WALTER Administration Clotrimazole 0 gm 09/30/25 14:00 10/03/25 08:59 Clotrimazole Cr 1% 30 Gm Tube TOP 10/30/25 13:59 Not Given BID WALTER Dextrose 25 ml 09/17/25 19:54 Dextrose 50%-Water Inj 50 Ml Syringe IV 10/17/25 19:53 Q15MIN PRN BG 50-70 responsive npo pt Dextrose 50 ml 09/17/25 19:54 Dextrose 50%-Water Inj 50 Ml Syringe IV 10/17/25 19:53 Q15MIN PRN BG <50 OR BG <70 & pt unresponsive Gabapentin 200 mg 09/18/25 14:00 10/03/25 06:37 Gabapentin 100 Mg Capsule PO 10/18/25 13:59 200 mg TID WALTER Administration Glucagon 1 mg 09/17/25 19:54 Glucagon Inj 1 Mg Vial IM Q15MIN PRN BG <70, and no IV access Heparin Sodium (Porcine) 5,000 unit 09/22/25 21:00 10/03/25 08:58 Heparin Sod Inj 5000 Unit/Ml Vial SC 10/06/25 20:59 5,000 unit Q12HR WALTER Administration Insulin Degludec 36 unit 09/27/25 21:00 10/02/25 21:12 Insulin Degludec 5 Unit/0.05 Ml (Per 5 Units) SC 10/27/25 20:59 36 unit HS WALTER Administration Insulin Human Lispro 0 unit 09/20/25 17:00 10/03/25 11:46 Insulin Lispro (Admelog) 1 Unit/0.01 Ml Unit SC 10/20/25 16:59 3 unit ACHS WALTER Administration Protocol Insulin Human Lispro 5 unit 09/29/25 17:00 10/03/25 11:45 Insulin Lispro (Admelog) 1 Unit/0.01 Ml Unit SC 10/29/25 16:59 5 unit AC WALTER Administration Morphine Sulfate 2 mg 10/03/25 12:00 Morphine Sulf Inj 4 Mg/Ml Vial IVP 10/08/25 11:59 Q2HR PRN PAIN 7-10 Protocol Multivitamins/Minerals 15 ml 09/22/25 09:00 10/03/25 08:58 Multivitamin 15 Ml Udc PO 10/22/25 08:59 15 ml QDAY WALTER Administration Ondansetron HCl 4 mg 09/17/25 15:09 Ondansetron Inj 2 Mg/Ml Inj 2 Ml IVP 10/17/25 15:08 Q6H PRN NAUSEA OR VOMITING Protocol Oxycodone HCl 10 mg 10/03/25 09:21 Oxycodone Hcl 5 Mg Ir Tab PO 10/05/25 10:11 Q4H PRN PAIN SCALE 4-10(Mod-Sev Protocol Pantoprazole Sodium 40 mg 09/21/25 22:30 10/03/25 08:58 Pantoprazole Inj 40 Mg Vial IVP 10/21/25 22:29 40 mg QDAY WALTER Administration Sennosides 1 tab 09/22/25 21:00 10/02/25 21:12 Senna/Docusate Sod 1 Tab Tablet PO 10/22/25 20:59 1 tab HS WALTER Administration Protocol Zinc Sulfate 220 mg 09/22/25 09:00 10/03/25 08:58 Zinc Sulfate 220 Mg Capsule PO 10/05/25 08:59 220 mg QDAY WALTER Administration Plan Mr. Carrera is a 55 year old gentleman with a hx of T2DM- poorly controlled (a1c 10) with no active PCP management who presented to the ed on 09/17 10 days after a fall from a ladder resulting in injury of his R foot and subsequent erythema and swelling, found to have R foot abscess concerning for nec fasc, s/p I&D's and debridements, s/p BKA 10/02. Plan to discharge 10/04 to home after monitoring for continued stability s/p BKA. #R foot abscess s/p I&D -> S/P BKA 10/02 #Thrombocytosis #Elevated AST, ALT, Alk Phos -pt presented 10 days after falling off of a ladder at work. he states that his foot got caught in the rung of the ladder and that he fell backwards and twisted and injured his ankle. he did not seek medical attention at that time. His pain and swelling worsened and he experienced chills which prompted him to present to the ED. suspect that R foot wound did not heal 2/2 poorly controlled DM and immuno- compromised state and poor peripheral perfusion. leukocytosis is downtrending, lots of pus expressed during wound care on 09/19 - Foot CT: Extensive soft tissue infection with gas-forming organisms involving all of the soft tissues of the foot - s/p I and D with debrident with Dr. Ruffin 09/17, 09/20 and debridement on 09/25 - 09/21-09/24 with wound vac and straw colored copious output. Plan: - Surgery consulted, appreciate recs JACKIE Marie completed 10/02 (500 ml blood loss -> 2 units prbc) - Oxycodone 10 mg q4hr prn for moderate to severe pain. - Gabapentin 200 mg TID- Pt reports that it makes him very tired but with minimal relief of his foot pain - Morphine 2 mg IV q2h prn - Incentive spirometry for atelectasis/PNA ppx - Wound care consulted, appreciate recs - Vit C 500mg BID - Zinc Sulfate 220mg qd for 14 days (09/22- 10/05 end date) - Multivitamin 15 ml QD #Type 2 diabetes mellitus- poorly controlled -A1c 10.7 and BG 412 on admission -P states that he was diagnosed with dm in 2014, by his pcp and was not initiated on any medication therapies at that time. he was lost to follow up and has not been seen by a PCP since that time. pt states that he initiated dietary changes with intent to control his dm. -Patient states he will get a new phone so that he can use the free style dea to monitor his glucose. Plan: - Lispro 5 units TID with meals - Degludec 36 units qhs (increased 7-->10-->15-->20-->25-->30-->36) - ISS step 3 - ACHS Bedside glucose checks - Diet, carb consistent - Diabetes education - Dietition consulted, appreciate recs #Normocytic Anemia Hemoglobin was downtrending, stable, likely post surgical Plan - Will ctm hgb and for signs/symptoms of blood loss - Will Transfuse if hemoglobin drops <7 #Constipation- resolved concern given constipating medications the patient is on, opioids for pain patient continues to have regular BM, - CTM - senna and docusate qd Mild hyponatremia Patient received 2 units prbc's 10/02 Plan: - Monitor for now Dispo: Med tele - S/P BKA 10/02 Diet: Carb consistent Bowel Reg: senna/docusate scheduled, given opioids given for pain VTE ppx: Heparin GI ppx: protonix qd 40 iv Code status: FULL Patient plan of care was discussed with the attending physician, Dr. Zamora & senior resident Dr. Willie Blake MD PGY-1 Attending Provider Attestation/Addendum I, Nadege Zamora, DO, attest that I was physically present for the [place] portions of the service and evaluated the patient with the resident and I reviewed and discussed the case with the resident and agree with the resident's findings and plans of care as documented above Patient seen and evaluated this AM with surgeon at bedside. He is POD#1 of right BKA. Patient states he is feeling well, but had a lot of pain overnight. Pain regimen was dosing was increased with improved pain control. Recommended patient to use oral pain medications, if possible. Blood glucose is better controlled. Dressing over right stump is clean, dry and intact. Will continue [facility] current management and anticipate DC within next 24-48h after dressing change and pain is well controlled.
[2025-10-03] MEDS: oxyCODONE HCL 5 MG IR TAB 10 MG PO ×3 (13:12→21:25)
[2025-10-03] MEDS: INSULIN DEGLUDEC 5 UNIT/0.05 ML (PER 5 UNITS) 36 UNIT SC (20:37)
[2025-10-03] MEDS: CLOTRIMAZOLE CR 1% 30 GM TUBE TOP (21:32)
[2025-10-04] VITALS: BP 105/67; PULSE 68; RESP 17; TEMP 36.2; O2SAT 97
[2025-10-04] MEDS: MORPHINE SULF INJ 4 MG/ML VIAL 2 MG IVP ×6 (00:09→13:19)
--- NOTE | 2025-10-04 00:12 | PC.NURSE ---
Patient wants pain mediation given on scheduled time when due. Educated patient regarding pain medication being PRN. Per patient he wants his pain medication to be given when it is due and per patient stated that he would want to be waken up when his pain medications are due.
[2025-10-04] MEDS: oxyCODONE HCL 5 MG IR TAB 10 MG PO ×3 (01:35→10:28)
[2025-10-04 04:00] VITALS: BP 103/66; PULSE 77; RESP 18; TEMP 36.3; O2SAT 99
[2025-10-04] MEDS: GABAPENTIN 100 MG CAPSULE 200 MG PO ×2 (05:39→13:28)
[2025-10-04 07:06] VITALS: BP 124/67; PULSE 88; RESP 16; TEMP 35.9; O2SAT 98
--- NOTE | 2025-10-04 08:33 | XR_ITS ---
Examination: Abdomen sonogram, Limited Date and time of exam: October 04, 2025, 0926 hours INDICATIONS: Elevated liver function test on laboratory examination today. Technique: Real-time ballesteros scale transabdominal sonographic images of the upper abdomen obtained. Findings: Cholelithiasis, gallbladder wall 0.3 cm no edema Common bile duct enlarged 0.8 cm no definite stones Pancreatic head 3.4 cm Liver 17.6 cm fatty infiltration Normal hepatopetal portal venous flow Patent IVC IMPRESSION: Cholelithiasis, negative for cholecystitis Abnormally enlarged common bile duct, clinical correlation advised, consider MRCP follow-up
[2025-10-04] MEDS: ZINC SULFATE 220 MG CAPSULE PO (09:17)
[2025-10-04] MEDS: CLOTRIMAZOLE CR 1% 30 GM TUBE TOP (09:18)
[2025-10-04] MEDS: HEPARIN SOD INJ 5000 UNIT/ML VIAL SC (09:18)
[2025-10-04] MEDS: ASCORBIC ACID 250 MG TABLET 500 MG PO (09:18)
[2025-10-04] MEDS: MULTIVITAMIN 15 ML UDC PO (09:18)
--- NOTE | 2025-10-04 10:39 | PC.SS ---
Patient needs a standard manual wheelchair with elevated leg rest. The patient and her family are requesting a wheel chair. Patients diagnosis creates mobility limitations that significantly impairs ability to participate in the patient?s activities of daily living either in their entirety or in a reasonable timeframe in the home and the patient?s mobility limitations cannot be sufficiently resolved with an appropriately fitted cane or walker. Also, the use of a manual wheelchair will sufficiently improve patients ability to participate in the activities of daily living in the home and the patient is willing to use the wheelchair that is provided in the home. The patient has some one in the home that is available, willing and able to provide assistance with the wheelchair.
[2025-10-04] MEDS: INSULIN LISPRO (AdmeLOG) 1 UNIT/0.01 ML UNIT 5 UNIT SC (11:25)
[2025-10-04] MEDS: INSULIN LISPRO (AdmeLOG) 1 UNIT/0.01 ML UNIT SC (11:26)
--- NOTE | 2025-10-04 11:29 | PC.NURSE ---
I asked patient if he was in pain he gave a pain level of 10. I asked if he needed pain medication. Patient replied he does not need pain medication .
--- NOTE | 2025-10-04 11:31 | PC.NURSE ---
Patient called that I am refusing to give him pain medication. called charge nurse. I explained to Markmer charge nurse I was educating patient on pain medication. I explained to patient he is not going to have morphine at home. He should consider taking the oxycodone to control his pain that way he is comfortable at home with oxycodone.
[2025-10-04 11:36] VITALS: BP 126/89; PULSE 100; RESP 20; TEMP 35.8; O2SAT 99
[2025-10-04 11:50] LABS: Basophils # (Auto) 0.1 Thou/mm3 (0.0-0.2); Basophils % (Auto) 1 % (0-2.5); Eosinophils # (Auto) 0.1 Thou/mm3 (0.0-0.5); Eosinophils % (Auto) 1 % (0-10); Hematocrit 29.8 % (41.0-53.0); Hemoglobin 9.9 g/dL (13.5-16.0); Immature Granulocytes Auto 0.15 Thou/mm3 (0.00-0.00); Lymphocytes # (Auto) 2.0 Thou/mm3 (1.0-4.8); Lymphocytes % (Auto) 16 % (10-50); Mean Corpuscular HGB Conc 33.2 g/dl (31.0-37.0); Mean Corpuscular Hemoglobin 29.1 pg (25.0-35.0); Mean Corpuscular Volume 88 fL (80-100); Monocytes # (Auto) 0.9 Thou/mm3 (0.0-0.8); Monocytes % (Auto) 7 % (0-12); Neutrophils # (Auto) 9.8 Thou/mm3 (1.8-7.7); Neutrophils % (Auto) 75 % (37-80); Nucleated Red Blood Cell # 0.00 Thou/mm3 (0.00-0.00); Nucleated Red Blood Cell % 0 /100 WBC (0); Platelet Count 571 Thou/mm3 (140-440); RDW Standard Deviation 45.3 fL (35.1-43.9); Red Blood Count 3.40 Miln/mm3 (4.50-5.90); White Blood Count 13.0 Thou/mm3 (3.8-10.6)
[2025-10-04 12:12] LABS: Alanine Aminotransferase 70 U/L (10-49); Albumin, Serum 3.8 gm/dL (3.5-5.0); Albumin/Globulin Ratio 0.7 (1.2-2.2); Alkaline Phosphatase 266 U/L (46-116); Anion Gap 8 (7-16); Aspartate Amino Transferase 68 U/L (0-34); BUN/Creatinine Ratio 15 Ratio (12-20); Bilirubin,Total 0.5 mg/dL (0.3-1.2); Blood Urea Nitrogen 12 mg/dL (9-23); Calcium 8.4 mg/dL (8.3-10.6); Calcium (Corrected) 8.6 mg/dL (8.5-10.1); Carbon Dioxide 28.8 mMol/L (20.0-31.0); Chloride 95 mMol/L (98-107); Creatinine (Component) 0.8 mg/dL (0.6-1.3); Estimated Creatinine Clearance 102.1 mL/min (>60); Globulin 5.4 gm/dL (2.3-3.5); Glucose 282 mg/dL (74-106); Magnesium 1.8 mg/dL (1.6-2.6); Osmolality,Calculated 274 (275-295); Phosphorous 3.9 mg/dL (2.4-5.1); Potassium 4.5 mMol/L (3.4-5.1); Sodium 132 mMol/L (136-145); Total Protein 9.2 gm/dL (5.7-8.2); eGFR > 60 See Note
--- NOTE | 2025-10-04 13:02 | PC.NURSE ---
Patients came up to nurses station and started telling me she does not appreciate how i talk to her . She does not want me to care for him anymore. This morning at shift change he told me a doctor told him last night he was going to [place] today. I told him there was no orders yet if orders came in I would go into room and notify him with time. If he could not find a ride we could send him home on an uber or taxi. Family absolutely does not want anyone educating them on anything. Family gets offended and treat staff and nurses with no respect.
--- NOTE | 2025-10-04 13:55 | ESDS_ITS ---
<Statement entered by Nadege Zamora DO - 10/05/25 08:56> I, Nadege Zamora DO, attest that I was physically present for the [place] portions of the service and evaluated the patient with the resident and I reviewed and discussed the case with the resident and agree with the resident's findings and plans of care as documented above <Statement entered by Mohinder Crowley MD - 10/04/25 14:33> Note reviewed and agree with care plan as documented. Please refer to the note below for further details. Plan discussed with attending physician Dr. Noah Crowley MD PGY-2 Internal Medicine Planned Discharge Date 10/04/25 DS: Providers Provider Date of admission: 09/17/25 15:34 Primary care physician: Sandip Waite MD Admitting Provider: Willy Parham MD Attending Provider on Admission: Nadege Zamora DO Consults: 09/17/25 13:00 Consult to General Surgery Stat Comment: Left foot/leg infection Consulting Provider: Kimmie Ruffin 09/17/25 20:38 Referral Registered Dietitian Routine Comment: 09/17/25 23:21 Referral [place] Routine Comment: [facility] Referral - Nutrition Routine Comment: Positive screening for nutrition needs. 09/18/25 08:38 Referral Wound Care Routine Comment: 09/18/25 13:54 Referral OP Wound Healing Dept Routine Comment: Right foot Necrotizing fasciitis 09/29/25 13:01 Referral Physical Therapy Routine Comment: Physician Instructions: 10/04/25 11:52 Referral Registered Dietitian Routine Comment: Attending Provider on DC: Nadege Zamora DO Discharging Provider: Nadege Zamora DO DS: Diagnosis Problem List Completed Was Problem List Reviewed/Reconciled?: Yes Hospital Course Hospital Course Hospital course: Mr. Carrera is a 55 year old gentleman with a hx of T2DM- poorly controlled (a1c 10) with no active management of it presented to the ED at [facility] on 09/17 10 days after a fall from a ladder resulting in injury of his R foot and subsequent erythema and swelling, found to have R foot abscess concerning for nec fasc. Patient had surgery consulted and had I&D's and debridements done. Patient was initially hesitant about getting amputation but became agreeable and had the Below Knee Amputation completed 10/02. Patient's uncontrolled diabetes was addressed and patient was placed on long and short acting insulin. Patient was told he will need to follow up with his PCP in order to get his diabetes under control, patient understood and states he wants to improve it. Patient has been given diabetes education in the hospital so that he is prepared to use his medications appropriately. Patient's pain is under control on day of discharge. Patient understands that he can not go home with morphine and will have to rely on oxycodone-acetaminophen (which was prescribed outpatient for him for pain control). Patient was found to have transient increase in Liver Function Tests with Liver Ultrasound showing mildly enlarged CBD and cholelithiasis, instructed to follow up with PCP. On day of discharge patient strongly insisted that he wants to go home and says he will be even more comfortable there and will be able to tolerate his pain well with the said pain medication. Patient is being discharged in stable condition. Discharge Instructions ? Follow up with Dr. Ruffin (your surgeon) in 2 weeks for staple removal. Call for appointment. ? Ambulate using crutches as shown by your physical therapist ? Wear your health promotion manager sock and stump protector at all times untill follow up appointment to help incision heal. ? Incision to right lower leg: may remove and shower. After showering, make sure incision is clean and dry. Than cover with dry gauze and secure with gauze roll and reapply sock and stump protector. Change dressing ever 2-3 days until your follow up. ? If active bleeding occurs, apply tight dressing and return to MD or ER. ? Notify primary doctor or return to Emergency Room if any of the following: ? Fever above 100.6? F. ? Increased pain ? Increase swelling ? Red streaks around your wound ? Drainage becomes foul smelling or changes color ? The wound is larger or deeper ? The wound looks dried out or dark ? Bleeding that does not stop with holding pressure ? Continue taking all other home medications as prescribed ? Follow the instructions and education given to you regarding use for your diabetes medications including freestyle dea sensor/reader along with insulin use with lancets and needle. ? Follow-up with PCP within 1-2 weeks of discharge to address diabetes ? Follow-up with PCP for elevated liver function tests and for Liver Ultrasound results ? If you do not have a PCP, you can follow-up at the [facility] (you can call [phone] to make an appointment) ? Return to ED if symptoms worsen or recur Hospital Diagnosis #R foot abscess s/p #R Below knee amputation #Thrombocytosis #Uncontrolled Type 2 diabetes mellitus #Normocytic Anemia #Constipation Mild hyponatremia Patient plan of care was discussed with the attending physician, Dr. Zamora & resident physician Dr. Willie Blake MD PGY-1 Time Spent with Patient Time attestation: Total time spent providing and/or coordinating discharge services: Time spent: Greater than 30 minutes Home Health Home Health Referral Orders: 10/03/25 14:31 Home Health Referral Routine Reason For Exam: BKA Home-Bound The patient must either because of illness or injury, need the aid of supportive devices such as crutches, canes, wheelchairs, and walkers; the use of special transportation; or the assistance of another person in order to leave their place of residence; OR have a condition such that leaving his or her home is medically contraindicated. In addition, the patient also meets the following criteria: patient is normally unable to leave the home and leaving home requires considerable taxing effort. Addendum to Home Health Certification Practitioner's Certification: I certify that the patient has been under my care in the hospital and the care of attending physician (see below). We had a ayek-ts-whxr encounter on (see date below). My clinical findings indicate that the patient is home bound per the above criteria and the Home Health Services noted in these orders are medically necessary. The primary reason for the lcbw-ly-wqlo encounter is related to the fact that the patient requires home health services. Date Certifying Pxlz-gy-Ggty Physician Encounter: 09/17/25 Physician's Name who will Assume Oversight for Services: Sandip Waite Physician's Phone No.who will Assume Oversight for Service: [facility] - Community Resources: No PT to Evaluate: Yes PT to evaluate and provide a treatmnet plan to increase patient's mobility and strength. Wound Care: Yes Home Health RN - Wound Care Order: as per wound care nurse instructions IV Therapy: No RN Safety Evaluation: Yes RN to evaluate and create a plan of care that will produce positive outcomes. Palliative Treatment: No Palliative treatment and evaluate the need for hospice. Home Health Aide - Personal Care: Yes Home Health Aide to assist with any ADL's. Exam Vital Signs Temp Pulse Resp BP Pulse Ox O2 Del Method O2 Flow Rate 96.5 F L 100 20 126/89 H 99 Room Air 4 10/04/25 11:36 10/04/25 11:36 10/04/25 11:36 10/04/25 11:36 10/04/25 11:36 10/04/25 11:36 10/02/25 20:34 Narrative Exam General: Awake and in no acute distress. Conversational and non-toxic appearing. Neurologic: GCS 15. Alert and oriented x3, no gross neurological deficit, and patient able to move all 4 extremities. HEENT: Normocephalic, atraumatic, mucous membranes moist. Pupils reactive to light. Heart: Regular rate and rhythm, normal S1 and S2, no murmurs. Lungs: Clear to auscultation bilaterally with no wheezing or crackles. Abdomen: Soft, nondistended, nontender, positive bowel sounds. No guarding or rebound tenderness. Extremities: Right Lower Extremity (s/p BKA) wrapped clean/dry Skin: Warm. Dry. No rash or ecchymoses. Discharge Plan Plan Patient Disposition: Home w/HOME HEALTH Patient condition on transfer: Stable Care Plan Goals: 1) Follow up with Dr. Ruffin (your surgeon) in 2 weeks for staple removal. Call [phone] for appointment. 2) Ambulate using crutches as shown by your physical therapist 3) Wear your health promotion manager sock and stump protector at all times untill follow up appointment to help incision heal. 4) Incision to right lower leg: may remove and shower. After showering, make sure incision is clean and dry. Than cover with dry gauze and secure with gauze roll and reapply sock and stump protector. Change dressing ever 2-3 days until your follow up. If active bleeding occurs, apply tight dressing and return to MD or ER. ? Notify primary doctor or return to Emergency Room if any of the following: ? Fever above 100.6? F. ? Increased pain ? Increase swelling ? Red streaks around your wound ? Drainage becomes foul smelling or changes color ? The wound is larger or deeper ? The wound looks dried out or dark ? Bleeding that does not stop with holding pressure Prescriptions/Referrals Prescriptions/Med Rec: New ascorbic acid (vitamin C) 500 mg capsule 500 mg PO BID 30 Days Qty: 60 0RF (DME) pen needle, diabetic [Pen Needle] 29 gauge x 1/2 needle See Rx Instructions .Route Qty: 100 0RF Rx Instructions: As directed Use for administration of basal insulin and meal time insulin insulin degludec 100 unit/mL (3 mL) insulin pen 36 unit subcut QDAY Qty: 15 0RF insulin lispro [Humalog KwikPen Insulin] 100 unit/mL insulin pen 5 unit subcut TIDWM Qty: 15 0RF (DME) blood-glucose meter Kit See Rx Instructions .ROUTE .MEDSUPPLY Qty: 1 0RF Rx Instructions: As directed (DME) Blood Glucose Test Strip See Rx Instructions .ROUTE .MEDSUPPLY Qty: 50 0RF Rx Instructions: Test blood sugars three times daily before meals ICD 10: E11.65 (DME) lancets Misc See Rx Instructions .ROUTE .MEDSUPPLY Qty: 100 0RF Rx Instructions: Test blood sugars three times daily before meals ICD 10: E11.65 (DME) FreeStyle Dea 3 Plus Sensor Device See Rx Instructions .Route Qty: 1 3RF Rx Instructions: As directed (DME) FreeStyle Dea 3 [place] Misc See Rx Instructions .Route Qty: 1 3RF Rx Instructions: As directed gabapentin 300 mg capsule 300 mg PO BID Qty: 60 0RF Rx Instructions: Take 1 tablet every 12 hours for neuropathic pain oxycodone-acetaminophen [Percocet] 10-325 mg tablet 1 tab PO Q4H MDD 6 tabs PRN (Reason: pain) Qty: 60 0RF Rx Instructions: Take 1 tablet as needed every 4-6 hours for moderate to severe pain Discontinued cefpodoxime 200 mg tablet 200 mg PO BID Qty: 10 0RF Rx Instructions: must administer with a meal/food Referrals: Kimmie Ruffni MD [Physician, General Surgery] Sandip Waite MD [Primary Care Provider, Family Practice] Patient/Caregiver Discharge Instructions Discharge Activity: as per physical therapy Other Discharge Activity Instructions:: 1) Follow up with Dr. Ruffin (your surgeon) in 2 weeks for staple removal. Call [phone] for appointment. 2) Ambulate using crutches as shown by your physical therapist 3) Wear your health promotion manager sock and stump protector at all times untill follow up appointment to help incision heal. 4) Incision to right lower leg: may remove and shower. After showering, make sure incision is clean and dry. Than cover with dry gauze and secure with gauze roll and reapply sock and stump protector. Change dressing ever 2-3 days until your follow up. If active bleeding occurs, apply tight dressing and return to MD or ER. ? Notify primary doctor or return to Emergency Room if any of the following: ? Fever above 100.6? F. ? Increased pain ? Increase swelling ? Red streaks around your wound ? Drainage becomes foul smelling or changes color ? The wound is larger or deeper ? The wound looks dried out or dark ? Bleeding that does not stop with holding pressure Education Materials: Nutrition for Wound Healing, Diabetes: Caring for Your Body, Diabetes: Activity Tips, Incision Care Dc, Changing Dressing Dc, Discharge Instructions ..., Amputation What to Expect After, Diabetes: Meal Planning Print Language: Yemeni Stand Alone Forms: Sari Award Info., Patient Portal Info Letter Discharge Order Discharge Orders: Discharge (Routine); Ordered 10/04/25 Ordered By: Mohinder Tapia [facility] Quality Discharge Quality Measures VTE prophylaxis
--- NOTE | 2025-10-04 14:06 | PD.SURPROG ---
Documentation for date of: 10/04/25 Subjective Subjective Brief History: 55M with DMII not on medications (pt states he was told he had preDM but had not followed up) presenting with right foot pain, redness and fatigue. Pt states he fell off a ladder on 09/05 and since then noted worsening pain and appearance of his right foot as well as fatigue. In ER he is found to have WBC 25, A1c [address] showing extensive gas and abscess of R foot PMH: DMII (not on meds) PSHx: None Meds: None Allergies: NKDA Social hx: Nonsmoker Narrative: Pain well controlled, hgb stable Exam Vital Signs Temp Pulse Resp BP Pulse Ox O2 Del Method O2 Flow Rate 96.5 F L 100 20 126/89 H 99 Room Air 4 10/04/25 11:36 10/04/25 11:36 10/04/25 11:36 10/04/25 11:36 10/04/25 11:36 10/04/25 11:36 10/02/25 20:34 Constitutional Constitutional: no acute distress Routine Respiratory Exam Respiratory: Present no resp distress Routine Extremities Exam Comments: R BKA stump with incision c/d/i, no erythema, no bleeding or drainage Results Results: Laboratory Laboratory results: results reviewed Assessment & Plan Plan 55M with DMII not on meds (A1c 10) presenting with extensive right foot abscess, no signs of osteomyelitis s/p I&D 09/17 and debridement 09/20 and 09/26, followed by Gi [facility] 10/02, recovering well OK for dc from my standpoint Will follow up as outpt for staple removal and wound evaluation PROCEDURES: Procedures Excisional debridement of right foot wounds
--- NOTE | 2025-10-04 16:31 | PC.CC ---
Met w/ patient at bedside for insulin injection training. Discussed role of short acting and long-acting insulin. Patient stated he is ready for change and willing to administer multiple daily injections. Per patient, he does not eat breakfast but typically eats lunch and dinner. He also states that he would prefer to incorporate long acting insulin into his morning routine. Demonstrated use of insulin pen and injection technique. Verified understanding via teach-back. Patient able to appropriately assemble, dial dose and administer injection into demonstration cube. Discussed use of CGM including low-blood glucose alarms and hypoglycemia next steps. Patient states that he does not yet have an appointment with his PCP but will arrange one as soon as possible. No additional needs at this time.
--- NOTE | 2025-10-05 07:14 | PC.CC ---
Addendum entered by Betina Chiu RN 10/05/25 17:23: received message from [facility] that they will not follow patient since this is work related. I called and spoke to Dr. Zamora to inform her that HH agencies don't usually follow workman's comp case. She stated she wasn't aware that it was. I called and spoke to the patient, encouraged him to follow up with his PCP. He stated he has an appt on Wednesday with his doctor and 10/22 with the surgeon. Addendum entered by Betina Chiu RN 10/05/25 16:21: [facility] crump/ Gill sent message through [employer] stating he has been unable to reach the patient or family. I called the patient and he answered immediately. He stated [facility] has not tried calling him. I sent message back via [employer] that I was able to get ahold of the patient. I called [facility] after I spoke to the patient and informed Tahmina that patient answer his phone. I provided the number that is on the facesheet. She stated she will have Ray call the patient again. Addendum entered by Betina Chiu RN 10/05/25 12:59: [facility] accepted and booked, SOC 10/08 Original Note: hh ref sent out, waiting for responses
== END 2025-10-04 16:00 | disposition home health service (06) | DRG 364 ==
LOC: SERX 14:13 → S3SX 09-18 07:02 → SERHOLD 09-18 10:49
PROVIDERS: Surgery; Admitting Provider Student in an Organized Health Care Education/Training Program; Emergency Provider Emergency Medicine; PCP Family Medicine; Visit Provider Internal Medicine
PROC: 0HBMXZZ Excision of Right Foot Skin, External Approach (ICD-10-PCS; CPT 27880; principal; 2025-10-02 13:15)
DX: L02.611 Cutaneous abscess of right foot (principal); E11.65 Type 2 diabetes mellitus with hyperglycemia; W11.XXXA Fall on and from ladder, initial encounter; E11.52 Type 2 diabetes mellitus with diabetic peripheral angiopathy with gangrene; E83.39 Other disorders of phosphorus metabolism; E87.1 Hypo-osmolality and hyponatremia; K80.20 Calculus of gallbladder without cholecystitis without obstruction; D64.9 Anemia, unspecified; E87.8 Other disorders of electrolyte and fluid balance, not elsewhere classified; D75.839 Thrombocytosis, unspecified; K59.00 Constipation, unspecified; L02.612 Cutaneous abscess of left foot; N17.9 Acute kidney failure, unspecified; Z79.4 Long term (current) use of insulin; Z79.899 Other long term (current) drug therapy
CPT/HCPCS: 36415; 71045; 73701; 76705; 80053; 80069; 80202; 81001; 82010; 82248; 82550; 82803; 83036; 83605; 83735; 83880; 84100; 84145; 84443; 84484; 85014; 85018; 85025; 85652; 86140; 86850; 86900; 86901; 86923; 87040; 87070; 87075; 87086; 87205; 93225; 93971; 94664; 96361; 96365; 96375; 97162; 99284; A4217; A4649; J0131; J0690; J0692; J1100; J1171; J1644; J1815; J1885; J2250; J2270; J2274; J2371; J2405; J2470; J2543; J2704; J2765; J3010; J3373; J3375; J3475; J3490; J7030; J7050; J7120; J7999; P9016; Q9967; S0077; A9270; J0737

== ENCOUNTER 2025-10-22 13:11 | Outpatient (AMB) | payer MEDICAID, SELFPAY ==
[2025-10-22 13:19] VITALS: BP 117/77; PULSE 83; RESP 18; TEMP 36.5; O2SAT 96; BMI 26.2
--- NOTE | 2025-10-22 13:19 | PD.GSCLVISIT ---
Vital Signs - [facility] 10/22/25 13:19 Height 1.75 m Height Method Measured Weight 80.739 kg Weight Measurement Method Estimated by Patient BMI 26.2 BP 117/77 Blood Pressure Source Automatic Cuff Blood Pressure Location Left Upper Arm Position Sitting Respiration 18 Pulse 83 Pulse Source Monitor Temp 97.7 F Temp Source Temporal Artery Scan Pulse Oximetry (%) 96 Oxygen Delivery Method Room Air Med/Allergies Allergies & Medications Allergies No Known Allergies Allergy (Verified 10/22/25 13:22) Medication Reconciliation ascorbic acid (vitamin C) 500 mg capsule 500 mg PO BID 30 days #60 caps 10/04/25 [Rx Confirmed 10/22/25] blood sugar diagnostic (Blood Glucose Test strips) #50 ea 10/04/25 [Rx Confirmed 10/22/25] blood-glucose meter #1 ea 10/04/25 [Rx Confirmed 10/22/25] blood-glucose sensor (FreeStyle Wes 3 Plus Sensor device) #1 ea 10/04/25 [Rx Confirmed 10/22/25] blood-glucose,yeast culture operator,cont (FreeStyle Wes 3 [place]) #1 ea 10/04/25 [Rx Confirmed 10/22/25] gabapentin 300 mg capsule 300 mg PO BID #60 caps 10/04/25 [Rx Confirmed 10/22/25] insulin degludec 100 unit/mL (3 mL) subcutaneous pen 36 unit (0.36 mL) subcut QDAY #15 mL 10/04/25 [Rx Confirmed 10/22/25] insulin lispro 100 unit/mL subcutaneous pen (Humalog KwikPen (U-100) Insulin) 5 unit (0.05 mL) subcut TIDWM #15 mL 10/04/25 [Rx Confirmed 10/22/25] lancets #100 ea 10/04/25 [Rx Confirmed 10/22/25] oxycodone-acetaminophen 10 mg-325 mg tablet (Percocet) 1 tab PO Q4H PRN pain #60 tabs 10/04/25 [Rx Confirmed 10/22/25] pen needle, diabetic 29 gauge x 1/2 (Pen Needle) #100 ea 10/04/25 [Rx Confirmed 10/22/25] gabapentin 300 mg capsule 300 mg PO TID #90 caps 10/22/25 [Rx] ME Intake Visit Data Collection New Patient or Established: Established Patient (seen at [facility] within 3 years) Seen by Clinical Staff ONLY (RN/MA): No Reason for Visit:: F/U BKA Pain Present Currently: No Pain Scale Used: [employer]oz[employer]-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 PCP or OBGYN visit in last 3 months: Yes Hx Now: No Do You Feel Safe at Home: Yes Authorities Contacted: N/A Smoking Status Smoking Status: Never smoker Immunization / Flu Flu Vaccine in the Last 12 Months: No Flu Vaccine Exclusion Criteria: Refused by Patient Past Medical History Past Medical History NEUROLOGIC: Negative Seizures CARDIAC: Negative Cardiac Disorders or Congestive Heart Failure RESPIRATORY: Negative Chronic Obstructive Pulmonary Disease (COPD) or Asthma GASTROINTESTINAL: Positive Gastrointestinal Disorders, Gall Bladder Disease and Gastroesophageal Reflux Disease GENITOURINARY: Negative Renal Disease ENDOCRINE: Negative Diabetes Mellitus Type 1 or Diabetes Mellitus Type 2 HEMATOLOGIC: Negative Sickle Cell Disease OTHER HISTORY: Negative Blood Transfusions, Blood Transfusion Reaction or Anesthesia Reactions Social History SMOKING STATUS: Smoking status: Never smoker SECOND HAND EXPOSURE: second hand exposure: No ALCOHOL: Alcohol Intake: Former ALCOHOL FREQUENCY: Alcohol Intake Frequency: A Few Times a Month HOUSING: Housing: Apartment LIVES WITH: Lives With: Family HPI HPI Narrative 55M with DMII who presented with extensive right foot abscess s/p I&D 09/17 and debridement 09/20 and 09/26, followed by [facility] 10/02, here for planned follow up. Pt states he is dealing with phantom pains and still adjusting to the loss of the limb but overall feels very well. He is taking gabapentin every 8 hours to line up with his other medications and is also taking oxycodone as needed for pain. He has adjusted his diet including cutting out sodas and his finger sticks have been in the low 100s ROS Review of Systems Systems Reviewed: All systems reviewed, normal except as documented Objective/Exam General General Appearance: alert, cooperative and well groomed Resp Respiratory exam: Absent respiratory distress Extremities Extremities exam: Present other (R BKA incision c/d/i with no erythema, no fluctuance or tenderness; jane removed today) Results Pathology of right foot/leg reviewed Assessment & Plan Diagnosis / Problem List (1) Right foot infection: Status: Acute Assessment & Plan: 55M with DMII presenting with extensive right foot abscess, no signs of osteomyelitis s/p I&D 09/17 and debridement 09/20 and 09/26, followed by Gi [facility] 10/02, recovering well Plan: Gabapentin TID F/u in 3 weeks Will refer to [facility] Procedures GNS Level of Care Nursing/Assessment Patient Status: Established Patient Nursing Assessment/Reassesment: Medication Reconciliation, Update PMH in EMR and Vital Signs Coordination of Care: Complex Care and Chronic Disease 1-5, Education Complex Pt/Fam, Consent,records obtained, informed consent, Results/Orders obtained and Staff clarify orders Established Patient Charge Established Patient Point Assignment: 95 Established Patient Point Charge: EP Level 3 (80-115) Patient Portal Questionaires Social History Living Situation History Housing: Apartment Tobacco History Smoking Status: Never smoker Second Hand Smoke Exposure: No Alcohol History Alcohol Intake: Former Alcohol Intake Frequency: A Few Times a Month Substance Use History Substance Use: Occasional marijuana. Domestic Abuse History Do You Feel Safe at Home: Yes Review of Systems Report any current symptoms Only answer those that you have currently: Past Medical History Past Medical History Have you ever been diagnosed with any of the following: Neurological Problems Seizures: No Cardiology Problems Congestive Heart Failure: No Respiratory Problems Chronic Obstructive Pulmonary Disease (COPD): No Asthma: No Stomache/Intestinal Problems Gall Bladder Disease: Yes Gastroesophageal Reflux Disease: Yes Genital/Urinary Problems Renal Disease: No Endocrine Problems Diabetes Mellitus Type 1: No Diabetes Mellitus Type 2: No Blood Problems Sickle Cell Disease: No Other Problems Blood Transfusions: No Blood Transfusion Reaction: No Anesthesia Reactions: No
== END 2025-10-22 13:48 | disposition home or self-care (01) ==
LOC: HODSRG 13:11
PROVIDERS: PCP Family Medicine; Referring Provider Family Medicine; Supervising Provider Surgery; Visit Provider Surgery
DX: E11.69 Type 2 diabetes mellitus with other specified complication (principal); L02.611 Cutaneous abscess of right foot
CPT/HCPCS: 99213; G0463